=== PATIENT | male | born 1940 | race Caucasian/White ===

== ENCOUNTER 2018-05-18 20:51 | Observation (INO) ==
[2018-05-18 21:19] LABS: Basophils % 0.4 % (0.1-2.0); Eosinophils # 0.1 K/mm3 (0.0-0.4); Eosinophils % 1.2 % (0.1-12.0); Hematocrit 41.8 % (42.0-52.0); Hemoglobin 13.2 g/dL (14.1-18.0); Lymphocytes # 1.4 K/mm3 (0.7-4.5); Lymphocytes % 15.2 % (10-50); Mean Corpuscular HGB Conc 31.6 g/dL (31.8-35.4); Mean Corpuscular Hemoglobin 31.3 pg (27.0-31.2); Mean Corpuscular Volume 98.9 fl (80-94); Mean Platelet Volume 8.6 fl (7.4-10.4); Monocytes # 0.4 K/mm3 (0.1-1.0); Monocytes % 4.2 % (1.7-9.3); Neutrophils % 79.1 % (37.0-80.0); Platelet Count 146 K/mm3 (142-424); Red Blood Count 4.23 M/mm3 (4.60-6.20); Red Cell Distribution Width 13.5 % (11.5-17.5); White Blood Count 8.9 K/mm3 (4.8-10.8)
[2018-05-18 21:38] LABS: Albumin Level 3.2 gm/dL (3.4-5.0); Albumin/Globulin Ratio 0.9 (1.1-1.8); Anion Gap 13.7 mEq/L (5-15); Bilirubin,Total 0.5 mg/dL (0.2-1.0); Calcium 8.1 mg/dL (8.5-10.1); Globulin 3.4 gm/dl (1.3-3.2); Potassium 3.7 mmoL/L (3.5-5.1); Total Protein,Serum 6.6 gm/dL (6.4-8.2)
--- NOTE | 2018-05-18 22:21 | Emergency Department Note ---
ED Disposition Clinical Impression: Concussion without loss of consciousness Qualifiers: Encounter type: initial encounter Qualified Code(s): S06.0X0A - Concussion without loss of consciousness, initial encounter Shoulder fracture, right Qualifiers: Encounter type: initial encounter Fracture type: closed Qualified Code(s): S42.91XA - Fracture of right shoulder girdle, part unspecified, initial encounter for closed fracture Fall Qualifiers: Encounter type: initial encounter Qualified Code(s): W19.XXXA - Unspecified fall, initial encounter Disposition: Admitted as Observation Condition on Discharge: Good Referrals: Efren Marte [Primary Care Provider] - - Critical Care Critical Care Time: No Attestation: On 05/18/18, the high probability of a clinically significant, sudden or life threatening deterioration of the following system(s) required my full and direct attention, intervention and personal management. The time I documented below is in addition to time spent performing reported procedures but includes the following listed in this critical care notation. Medical Decision Making - Medical Records Medical records reviewed: Yes: I reviewed the patient's medical records. - Jasen Inquiry Pt receiving controlled substance: No Vital Signs: 05/18/18 20:52 Temperature 98.0 F Temperature Source Oral Pulse Rate [Left Radial] 74 Respiratory Rate 13 Blood Pressure [Left Arm] 140/90 Blood Pressure Mean [Left Arm] 106 Blood Pressure Source [Left Arm] Automatic Cuff Blood Pressure Position [Left Arm] Sitting 02 Sat by Pulse Oximetry 97 Oxygen Delivery Method Room Air - Lab Data Lab results reviewed: Yes: I reviewed the patient's lab results. Lab Results 05/18/18 21:05: WBC 8.9, RBC 4.23 L, Hgb 13.2 L, Hct 41.8 L, MCV 98.9 H, MCH 31.3 H, MCHC 31.6 L, RDW 13.5, Plt Count 146, MPV 8.6, Neut % (Auto) 79.1, Lymph % (Auto) 15.2, [place] % (Auto) 4.2, Eos % (Auto) 1.2, Baso % (Auto) 0.4, Neut # (Auto) 7.0, Lymph # (Auto) 1.4, [place] # (Auto) 0.4, Eos # (Auto) 0.1, Baso # (Auto) 0.0 05/18/18 21:05: Sodium 143, Potassium 3.7, Chloride 107, Carbon Dioxide 26, Anion Gap 13.7, BUN 19 H, Creatinine 1.07, Estimated Creat Clear 62, Estimated GFR 66, Est GFR ( Amer) 80, Glucose 209 H, Calcium 8.1 L, Total Bilirubin 0.5, AST 13 L, ALT 19, Alkaline Phosphatase 163 H, Total Protein 6.6, Albumin 3.2 L, Globulin 3.4 H, Albumin/Globulin Ratio 0.9 L Result diagrams: 05/18/18 21:05 05/18/18 21:05 Orders (Tests/Meds): ED MEDICATIONS Discontinued Medications Generic Name Dose Route Start Last Admin Trade Name Freq PRN Reason Stop Dose Admin Sodium Chloride 1,000 mls @ 999 mls/hr 05/18/18 21:15 05/18/18 21:12 Sod Chlor 0.9% 1000ml Bag IV 05/18/18 22:15 999 mls/hr .Q1H1M HOLLIS Administration Ketorolac Tromethamine 30 mg 05/18/18 21:08 05/18/18 21:12 Toradol 30mg/Ml Vial IV 05/18/18 21:09 30 mg ONCE ONE Administration Ondansetron HCl 4 mg 05/18/18 21:08 05/18/18 21:12 Zofran 4mg/2ml Vial IV 05/18/18 21:09 4 mg ONCE ONE Administration ORDERS Category Date Time Status CT cervical spine wo con Stat Cat Scan 05/18/18 21:[address] head/brain wo con Stat Cat Scan 05/18/18 21:07 Taken Shoulder XR right miminum 2 views [XR shoulder RT min Exams 05/18/18 21:09 Taken 2V] Stat - Radiology Data #1 Image(s): Chest, Shoulder, Pelvis Image Reviewed: Yes I reviewed the patient's radiology image Preliminary Findings: Abnormal (fx shoulder ) - CT Data CT Scan: Head, C-Spine Time Received: 22:[address] Reviewed: Yes: I have viewed the radiologist's interpretation Preliminary Findings: Abnormal (old changes ) - Physician Consults Physician Consulted: dong Reason -: Admission Additional Consult: kiet Reason -: Pt condition Fall HPI - General Chief Complaint: Fall Stated Complaint: AO [id number] @1900 R shoulder injury Time Seen by Provider: 05/18/18 21:15 Mode of Arrival: Wheelchair Source of Information: Patient, Relative, Medical Record Limitations: No Limitations Description of Symptoms (Recalled from ER Triage Doc. by RN): Pt reports he was at a freinds house when he lost his footing and fell he hit his head but no loc. Pt c/o right shoulder pain. Knot noted on the left side of his forehead. - History of Present Illness HPI Narrative: wm who had trip injury and hit head and has neck pain uncertain as to loc but no def extended time and has rt shoulder pain with dec rom MD complaint: fall Onset (ago): hour(s) Fall from: standing Fall witnessed: no Place fall occurred: home Loss of consciousness: unsure Prolonged down time: no Context: tripped/slipped Location of injury: head, neck Location of injury - extremities: Right: shoulder Severity: moderate Associated symptoms (after fall): headache, lightheaded - Related Data Home Medications Medication Instructions Recorded Confirmed Atorvastatin Calcium [Atorvastatin 80 mg PO DAILY 03/03/18 05/18/18 80mg Tab] Clopidogrel Bisulfate [Plavix 75mg 75 mg PO DAILY 03/03/18 05/18/18 Tab] Ferrous Sulfate 325 mg PO BID 03/03/18 05/18/18 Finasteride [Proscar 5mg Tablet] 5 mg PO DAILY 03/03/18 05/18/18 Lisinopril [Lisinopril 2.5mg Tab] 2.5 mg PO DAILY 03/03/18 05/18/18 Metoprolol Tartrate [Lopressor 6.25 mg PO BID 03/03/18 05/18/18 25mg tablet] Nitroglycerin 0.4 mg SL NEEDED PRN 03/03/18 05/18/18 Pantoprazole Sodium [Protonix 40mg 40 mg PO BID 03/03/18 05/18/18 tablet] Tamsulosin HCl [Flomax 0.4mg 0.4 mg PO HS 03/03/18 05/18/18 capsule] Allergies Allergy/AdvReac Type Severity Reaction Status Date / Time Sulfa (Sulfonamide Allergy Unknown Verified 05/18/18 21:10 Antibiotics) [SULFA (SULFONAMIDE ANTIBIOTICS)] [facility] History I have reviewed the patient's past medical history: Yes Medical History: Reports:: Coronary Artery Disease, Hyperlipidemia, Hypertension, Kidney Stones Denies:: Cancer, Diabetes Mellitus Type 1, Diabetes Mellitus Type 2, Internal Pacemaker, MRSA Other Surgeries: Yes: Coronary Stent, Other (kidney stones). No: Pacemaker Amputation: No - Social History Smoking Status: Current every day smoker Tobacco Type: cigarettes Alcohol Intake: never - Psychiatric History Expresses thoughts of harming self/others: None Suicide Plan Description: No Plan ROS Obtained: Yes All systems reviewed & no additional complaints - Constitutional Constitutional: Denies fever(s) - Eyes Eyes: Denies change in vision - ENT Ears, Nose, Mouth, and Throat: Denies sore throat - Cardiovascular Cardiovascular: Denies chest pain, Denies palpitations - Respiratory Respiratory: No cough, No dyspnea - Gastrointestinal Gastrointestingal: Denies: abdominal pain - Genitourinary Male Genitourinary: Denies hematuria - Musculoskeletal Musculoskeletal: Reports as per HPI, Reports joint pain, Reports joint swelling, Reports neck pain - Integumentary/Breasts Skin/Breast: Denies rash - Neurologic Neurologic: Reports confusion, Denies focal weakness, Denies seizure-like activity Physical Exam - General General appearance: alert - Head Head exam: normocephalic - Eye Eye exam: Present: PERRL, EOMI - ENT ENT exam: Present: mucous membranes dry - Neck Neck exam: Present: trachea midline - Respiratory Respiratory exam: Present: other (dec bs bilat ). Absent: respiratory distress - Cardiovascular Cardiovascular exam: Present: regular rate, systolic murmur, +S4 - Abdominal Exam Abdominal exam: Present: soft - Expanded Upper Extremity Exam Right Shoulder exam: Present: tenderness, swelling, deformity. Absent: full ROM - Back Exam Back exam: Present: other (pelvis stable ) - Neurological Exam Neurological exam: Present: alert, oriented X3, CN II-XII intact, other (gcs=15). Absent: motor sensory deficit - Psychiatric Psychiatric exam: Present: normal affect - Skin Skin exam: Absent: rash
[2018-05-19 05:54] LABS: Basophils % 0.2 % (0.1-2.0); Eosinophils % 0.1 % (0.1-12.0); Hematocrit 37.9 % (42.0-52.0); Lymphocytes # 1.3 K/mm3 (0.7-4.5); Lymphocytes % 15.7 % (10-50); Mean Corpuscular HGB Conc 31.7 g/dL (31.8-35.4); Mean Corpuscular Volume 97.8 fl (80-94); Mean Platelet Volume 8.8 fl (7.4-10.4); Monocytes # 0.4 K/mm3 (0.1-1.0); Monocytes % 5.1 % (1.7-9.3); Neutrophils # 6.7 K/mm3 (1.8-7.8); Platelet Count 117 K/mm3 (142-424); Red Blood Count 3.88 M/mm3 (4.60-6.20); Red Cell Distribution Width 13.7 % (11.5-17.5); White Blood Count 8.5 K/mm3 (4.8-10.8)
[2018-05-19 06:12] LABS: Anion Gap 13.4 mEq/L (5-15); Blood Urea Nitrogen 18 mg/dL (7-18); Calcium 8.2 mg/dL (8.5-10.1); Carbon Dioxide 25 mmol/L (21.0-32.0); Chloride 108 mmol/L (98-107); Glucose 140 mg/dL (74-106); Potassium 3.4 mmoL/L (3.5-5.1); Sodium 143 mmol/L (136-145)
--- NOTE | 2018-05-19 06:59 | History & Physical Report ---
*Admission Date: 05/18/18 *Chief complaint: Fall at home *History of present illness: 78-year-old male who lives at home alone fell injuring his right arm. Patient gives history this morning. Speech is difficult to understand these not completely awake. He apparently tripped, possibly over a pipe, at home striking his head and neck as well as injuring his right arm. Patient minimizes any head trauma. He did not lose consciousness. He did have pain in the right arm. He presented to the emergency department with family for evaluation. In the ER patient still seemed a little confused. He was also diagnosed with a right humerus fracture. Patient was admitted for observation and orthopedic consul tation. This morning the patient is oriented to day, month, year and person. He is not oriented to place. He denies significant pain [facility] History I have reviewed the patient's past medical history: Yes Medical History: Reports:: Aneurysm, Coronary Artery Disease, Hyperlipidemia, Hypertension, Kidney Stones Denies:: Cancer, Diabetes Mellitus Type 1, Diabetes Mellitus Type 2, Internal Pacemaker, MRSA Other Surgeries: Yes: Coronary Stent, Other (kidney stones). No: Pacemaker Amputation: No - *Social History Educational Level: Attended High School Smoking Status: Current every day smoker Tobacco Type: cigarettes # Packs/Day (cigarettes): 2 #Yrs smoked (if former smoker): 70 Alcohol Intake: former Alcohol Intake Frequency:: other Occupational Status: retired Household Members: none - Psychiatric History Expresses thoughts of harming self/others: None Suicide Plan Description: No Plan Review of Systems - Review of Systems Review of systems:: pertinent systems reviewed and negative unless documented below - Constitutional Denies body ache(s), Denies chills - Eyes Denies blurry vision - *Cardiovascular Denies chest pain, Denies chest pain at rest - *Respiratory Denies change in phlegm color, Denies chest congestion, Denies cough - *Gastrointestinal Denies belching, Denies bloating - *Musculoskeletal Reports limited joint movement - *Neurologic Reports confusion, Denies localized weakness, Denies seizure-like activity Meds Home Medications Medication Instructions Recorded Confirmed Type Atorvastatin Calcium [Atorvastatin 80 mg PO DAILY 03/03/18 05/18/18 History 80mg Tab] Clopidogrel Bisulfate [Plavix 75mg 75 mg PO DAILY 03/03/18 05/18/18 History Tab] Ferrous Sulfate 325 mg PO BID 03/03/18 05/18/18 History Finasteride [Proscar 5mg Tablet] 5 mg PO DAILY 03/03/18 05/18/18 History Lisinopril [Lisinopril 2.5mg Tab] 2.5 mg PO DAILY 03/03/18 05/18/18 History Metoprolol Tartrate [Lopressor 6.25 mg PO BID 03/03/18 05/18/18 History 25mg tablet] Nitroglycerin 0.4 mg SL NEEDED PRN 03/03/18 05/18/18 History Pantoprazole Sodium [Protonix 40mg 40 mg PO BID 03/03/18 05/18/18 History tablet] Tamsulosin HCl [Flomax 0.4mg 0.4 mg PO HS 03/03/18 05/18/18 History capsule] Amoxicillin [Amoxicillin 500mg 500 mg PO BID 05/18/18 05/18/18 History Cap] predniSONE [Deltasone 20mg 20 mg PO BID 05/18/18 05/18/18 History tablet] Allergies Allergy/AdvReac Type Severity Reaction Status Date / Time Sulfa (Sulfonamide Allergy Unknown Verified 05/18/18 21:10 Antibiotics) [SULFA (SULFONAMIDE ANTIBIOTICS)] Exam Vital signs and Labs for Last 24 Hours: Temp Pulse Resp BP Pulse Ox 98.3 F 86 20 127/76 93 L 05/19/18 04:46 05/19/18 04:46 05/19/18 04:46 05/19/18 04:46 05/19/18 04:46 Laboratory Results - last 24 hr 05/18/18 21:05: WBC 8.9, RBC 4.23 L, Hgb 13.2 L, Hct 41.8 L, MCV 98.9 H, MCH 31.3 H, MCHC 31.6 L, RDW 13.5, Plt Count 146, MPV 8.6, Neut % (Auto) 79.1, Lymph % (Auto) 15.2, [place] % (Auto) 4.2, Eos % (Auto) 1.2, Baso % (Auto) 0.4, Neut # (Auto) 7.0, Lymph # (Auto) 1.4, [place] # (Auto) 0.4, Eos # (Auto) 0.1, Baso # (Auto) 0.0 05/18/18 21:05: Sodium 143, Potassium 3.7, Chloride 107, Carbon Dioxide 26, Anion Gap 13.7, BUN 19 H, Creatinine 1.07, Estimated Creat Clear 62, Estimated GFR 66, Est GFR ( Amer) 80, Glucose 209 H, Calcium 8.1 L, Total Bilirubin 0.5, AST 13 L, ALT 19, Alkaline Phosphatase 163 H, Total Protein 6.6, Albumin 3.2 L, Globulin 3.4 H, Albumin/Globulin Ratio 0.9 L 05/19/18 01:46: Troponin I < 0.02 05/19/18 05:19: Sodium 143, Potassium 3.4 L, Chloride 108 H, Carbon Dioxide 25, Anion Gap 13.4, BUN 18, Creatinine 0.93, Estimated Creat Clear 66, Estimated GFR 78, Est GFR ( Amer) 95, Glucose 140 H D, Calcium 8.2 L, Troponin I < 0.02 05/19/18 05:19: WBC 8.5, RBC 3.88 L, Hgb 12.0 L, Hct 37.9 L, MCV 97.8 H, MCH 31.0, MCHC 31.7 L, RDW 13.7, Plt Count 117 L, MPV 8.8, Neut % (Auto) 79.0, Lymph % (Auto) 15.7, [place]cd[place] % (Auto) 5.1, Eos % (Auto) 0.1, Baso % (Auto) 0.2, Neut # (Auto) 6.7, Lymph # (Auto) 1.3, [place]cd[place] # (Auto) 0.4, Eos # (Auto) 0.0, Baso # (Auto) 0.0 I & O for Last 24 hours: Intake & Output 05/16/18 05/17/18 05/18/18 05/19/18 11:59 11:59 11:59 11:59 Intake Total 283 / 283 Balance 283 / 283 Weight 175 lb 4 oz Narrative: Patient is lying comfortably in bed in no distress. When initially awakened his speech was difficult to understand due to speaking with low volume. The more he awoke the clear he became. He is oriented to person and time. He is not oriented to place. Extraocular movements are intact. Pupils are reactive. Oropharynx is moist. Neck is without lymphadenopathy lungs are clear. Heart has a regular rate and rhythm. The right arm is in a sling. Abdomen is soft. There is no edema of the lower extremities. Assessment and Plan (1) Concussion without loss of consciousness Current visit: Yes Status: Acute Qualifiers: Encounter type: initial encounter Qualified Code(s): S06.0X0A - Concussion without loss of consciousness, initial encounter Category: Medical Code(s): S06.0X0A - Concussion without loss of consciousness, initial encounter (2) Fall Current visit: Yes Status: Acute Qualifiers: Encounter type: initial encounter Qualified Code(s): W19.XXXA - Unspecified fall, initial encounter Category: Medical Code(s): W19.XXXA - Unspecified fall, initial encounter (3) Shoulder fracture, right Current visit: Yes Status: Acute Qualifiers: Encounter type: initial encounter Fracture type: closed Qualified Code(s): S42.91XA - Fracture of right shoulder girdle, part unspecified, initial encounter for closed fracture Category: Medical Code(s): S42.91XA - Fracture of right shoulder girdle, part unspecified, initial encounter for closed fracture (4) [facility] (current) use of antithrombotics/antiplatelets Current visit: No Status: Acute Category: Medical Code(s): 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 Patient has had a mild concussion. He will simply need to rest to recover from this. There was no loss of consciousness. 2. Orthopedics has been consulted for his comminuted right humeral head and neck fracture. 3. As the patient lives at home alone and will be disabled from his fracture I have suggested to the patient assisted facility placement. Care management consult has been placed to investigate this
--- NOTE | 2018-05-19 08:23 | Pharmacy Consult Notes ---
[facility] Pharmacy VTE Monitoring - Patient Demographics Admission date: 05/18/18 Report Date: 05/19/18 Time: 08:23 Allergies/Adverse Reactions: Patient Allergies Sulfa (Sulfonamide Antibiotics) [SULFA (SULFONAMIDE ANTIBIOTICS)] Allergy (Unknown, Verified 05/18/18 21:10) Height: 1.88 m Weight: 79.492 kg Patient Problems: Current Active Problems Concussion without loss of consciousness (Acute) Shoulder fracture, right (Acute) Fall (Acute) - VTE Risk Labs: VTE Related Lab Results Hgb 12.0 g/dL (14.1-18.0) L 05/19/18 05:19 Hct 37.9 % (42.0-52.0) L 05/19/18 05:19 Plt Count 117 K/mm3 (142-424) L 05/19/18 05:19 BUN 18 mg/dL (7-18) 05/19/18 05:19 Creatinine 0.93 mg/dL (0.70-1.30) 05/19/18 05:19 Estimated Creat Clear 66 mL/min (50-200) 05/19/18 05:19 Was VTE Risk Assessment Performed: Yes VTE Score: 10 VTE Risk Level: Moderate Risk - Prophylaxis VTE Prophylaxis Ordered?: Yes Types of VTE Prophylaxis: TEDS Knee High Location of Applied Device: Bilateral Lower Extremeties - VTE Diagnosis Confirmed Treatment or plan recommended: Continue Current Treatment
--- NOTE | 2018-05-19 11:53 | Consult Report ---
*Admission Date: 05/18/18 *Chief complaint: R shoulder pain *History of present illness: 78-year-old gentleman with a chief complaint of right shoulder pain status post mechanical fall yesterday. He tripped over what may have been an exposed pipe in the ground and fell, hitting both his head and his right shoulder. He has been diagnosed with a concussion as well as a fracture of the right proximal humerus. Currently the patient is lying in bed in only his underwear with his sling at the foot of the bed. He is confused on initial questioning, but a few minutes later was completely oriented. He has had intermittent lucidity/confusion since admission. I spoke with his son Eddie via telephone, who reports that at baseline the patient is very active and drives himself 30 miles daily to visit a cousin. He lives alone at home and is able to perform all ADLs including feeding, bathing and dressing. His daughter does help him with medication management. He has had some occasional falls in the past, which his son attributes to inattention and not a balance issue. He does not fall frequently and ambulates with a cane. He has a history of COPD and is a smoker. He also has coronary artery disease with stent placement and is on Plavix therapy. His primary care is Dr. Marte. Review of Systems - Review of Systems Review of systems:: pertinent systems reviewed and negative unless documented below - *Musculoskeletal Reports joint pain, Reports joint swelling Comments: R shoulder pain/bruising - *Neurologic Reports confusion, Denies localized weakness, Denies seizure-like activity [facility] History I have reviewed the patient's past medical history: Yes (also verified via telephone with patient's son) Medical History: Reports:: Aneurysm, Chronic Obstructive Pulmonary Disease (COPD), Coronary Artery Disease, Hyperlipidemia, Hypertension, Kidney Stones Denies:: Cancer, Diabetes Mellitus Type 1, Diabetes Mellitus Type 2, Internal Pacemaker, MRSA Other Surgeries: Yes: Coronary Stent, Other (kidney stones). 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 Meds Home Medications Medication Instructions Recorded Confirmed Type Atorvastatin Calcium [Atorvastatin 80 mg PO DAILY 03/03/18 05/18/18 History 80mg Tab] Clopidogrel Bisulfate [Plavix 75mg 75 mg PO DAILY 03/03/18 05/18/18 History Tab] Ferrous Sulfate 325 mg PO BID 03/03/18 05/18/18 History Finasteride [Proscar 5mg Tablet] 5 mg PO DAILY 03/03/18 05/18/18 History Lisinopril [Lisinopril 2.5mg Tab] 2.5 mg PO DAILY 03/03/18 05/18/18 History Metoprolol Tartrate [Lopressor 12.5 mg PO BID 03/03/18 05/19/18 History 25mg tablet] Nitroglycerin 0.4 mg SL NEEDED PRN 03/03/18 05/18/18 History Pantoprazole Sodium [Protonix 40mg 40 mg PO BID 03/03/18 05/18/18 History tablet] Tamsulosin HCl [Flomax 0.4mg 0.4 mg PO HS 03/03/18 05/18/18 History capsule] Amoxicillin [Amoxicillin 500mg 500 mg PO BID 05/18/18 05/18/18 History Cap] predniSONE [Deltasone 20mg 20 mg PO BID 05/18/18 05/18/18 History tablet] Allergies Allergy/AdvReac Type Severity Reaction Status Date / Time Sulfa (Sulfonamide Allergy Unknown Verified 05/18/18 21:10 Antibiotics) [SULFA (SULFONAMIDE ANTIBIOTICS)] Exam Vital signs and Labs for Last 24 Hours: Temp Pulse Resp BP Pulse Ox 98.9 F 89 20 154/92 H 91 L 05/19/18 08:00 05/19/18 08:00 05/19/18 08:00 05/19/18 08:00 05/19/18 08:45 Laboratory Results - last 24 hr 05/18/18 21:05: WBC 8.9, RBC 4.23 L, Hgb 13.2 L, Hct 41.8 L, MCV 98.9 H, MCH 31.3 H, MCHC 31.6 L, RDW 13.5, Plt Count 146, MPV 8.6, Neut % (Auto) 79.1, Lymph % (Auto) 15.2, [place] % (Auto) 4.2, Eos % (Auto) 1.2, Baso % (Auto) 0.4, Neut # (Auto) 7.0, Lymph # (Auto) 1.4, [place] # (Auto) 0.4, Eos # (Auto) 0.1, Baso # (Auto) 0.0 05/18/18 21:05: Sodium 143, Potassium 3.7, Chloride 107, Carbon Dioxide 26, Anion Gap 13.7, BUN 19 H, Creatinine 1.07, Estimated Creat Clear 62, Estimated GFR 66, Est GFR ( Amer) 80, Glucose 209 H, Calcium 8.1 L, Total Bilirubin 0.5, AST 13 L, ALT 19, Alkaline Phosphatase 163 H, Total Protein 6.6, Albumin 3.2 L, Globulin 3.4 H, Albumin/Globulin Ratio 0.9 L 05/19/18 01:46: Troponin I < 0.02 05/19/18 05:19: Sodium 143, Potassium 3.4 L, Chloride 108 H, Carbon Dioxide 25, Anion Gap 13.4, BUN 18, Creatinine 0.93, Estimated Creat Clear 66, Estimated GFR 78, Est GFR ( Amer) 95, Glucose 140 H D, Calcium 8.2 L, Troponin I < 0.02 05/19/18 05:19: WBC 8.5, RBC 3.88 L, Hgb 12.0 L, Hct 37.9 L, MCV 97.8 H, MCH 31.0, MCHC 31.7 L, RDW 13.7, Plt Count 117 L, MPV 8.8, Neut % (Auto) 79.0, Lymph % (Auto) 15.7, [place] % (Auto) 5.1, Eos % (Auto) 0.1, Baso % (Auto) 0.2, Neut # (Auto) 6.7, Lymph # (Auto) 1.3, [place] # (Auto) 0.4, Eos # (Auto) 0.0, Baso # (Auto) 0.0 I & O for Last 24 hours: Intake & Output 05/16/18 05/17/18 05/18/18 05/19/18 11:59 11:59 11:59 11:59 Intake Total 283 / 283 Balance 283 / 283 Weight 175 lb 4 oz - Constitutional no acute distress, average body habitus - *Routine HEENT Exam Head: Present: normocephalic Eye: Present: EOMI - *Routine Respiratory Exam Present: CTA bilaterally. Absent: accessory muscle use, respiratory distress - *Routine Cardiovascular Exam Present: RRR - *Routine Extremities Exam Present: pulses intact, normal capillary refill, tenderness, joint swelling Comments: swelling/ecchymosis RUE; ecchymosis anterior arm/axilla - *Routine Skin Exam Present: ecchymosis - *Routine Neurological Exam Present: alert, normal reflexes, moving all extremities, normal tone, vision grossly intact, hearing grossly intact alert and oriented x3, then later patient is confused; sustained concussion and on narcotic pain meds - Additional findings Additional findings: R shoulder w/o gross deformity moderate soft tissue swelling over R shoulder/upper arm ecchymosis anterior R arm/axilla R shoulder tender to touch able to move R elbow, but causes shoulder pain SILT distally in m/r/u distributions RUE motor function intact with testing of AIN/PIN/ulnar nerves distally RUE palpable radial pulse at the wrist, BCR all digits RUE patient's sling lying at foot of bed; he keep removing, does not want to wear in bed placed RUE on pillow, which helped pain Results - Labs Result Diagrams: 05/19/18 05:19 05/19/18 05:19 Labs: Abnormal lab results 05/18/18 05/18/18 05/19/18 Range/Units 21:05 21:05 05:19 RBC 4.23 L (4.60-6.20) M/mm3 Hgb 13.2 L (14.1-18.0) g/dL Hct 41.8 L (42.0-52.0) % MCV 98.9 H (80-94) fl MCH 31.3 H (27.0-31.2) pg MCHC 31.6 L (31.8-35.4) g/dL Plt Count (142-424) K/mm3 Potassium 3.4 L (3.5-5.1) mmoL/L Chloride 108 H (98-107) mmol/L BUN 19 H (7-18) mg/dL Glucose 209 H 140 H D (74-106) mg/dL Calcium 8.1 L 8.2 L (8.5-10.1) mg/dL AST 13 L (15-37) U/L Alkaline Phosphatase 163 H (46-116) U/L Albumin 3.2 L (3.4-5.0) gm/dL Globulin 3.4 H (1.3-3.2) gm/dl Albumin/Globulin Ratio 0.9 L (1.1-1.8) 05/19/18 Range/Units 05:19 RBC 3.88 L (4.60-6.20) M/mm3 Hgb 12.0 L (14.1-18.0) g/dL Hct 37.9 L (42.0-52.0) % MCV 97.8 H (80-94) fl MCH (27.0-31.2) pg MCHC 31.7 L (31.8-35.4) g/dL Plt Count 117 L (142-424) K/mm3 Potassium (3.5-5.1) mmoL/L Chloride (98-107) mmol/L BUN (7-18) mg/dL Glucose (74-106) mg/dL Calcium (8.5-10.1) mg/dL AST (15-37) U/L Alkaline Phosphatase (46-116) U/L Albumin (3.4-5.0) gm/dL Globulin (1.3-3.2) gm/dl Albumin/Globulin Ratio (1.1-1.8) H & H 05/18/18 05/19/18 Range/Units 21:05 05:19 Hgb 13.2 L 12.0 L (14.1-18.0) g/dL Hct 41.8 L 37.9 L (42.0-52.0) % All other labs normal. - Diagnostic results Shoulder x-ray: report reviewed, image reviewed, other (comminuted fracture of R proximal humerus, appears to be 4-part fx) Assessment and Plan (1) Closed fracture of proximal end of right humerus Start date: 05/18/18 Current visit: Yes Status: Acute Qualifiers: Encounter type: initial encounter Fracture alignment: nondisplaced Category: Medical Code(s): S42.201A - Unspecified fracture of upper end of right humerus, initial encounter for closed fracture - Assessment and plan all Dx Assessment and Plan for all problems:: 78-year-old gentleman with a right proximal humerus fracture sustained during mechanical fall yesterday which also resulted in a concussion. This is likely a 4-part fracture and given his age, medical history, and bone quality, ORIF would likely fail. If any surgical treatment were pursued, I would recommend a reverse shoulder arthroplasty. However, many people do well without surgery for these fractures. I would like to obtain a CT scan of the shoulder to better evaluate the fracture pattern; then I can give he and his family more a educated discussion about treatment options. I did speak with his son Eddie via telephone and discussed the pluses and minuses of both surgical and non-surgical treatment. Nonsurgical treatment would result in a healed fracture, but will also leave him with a very stiff shoulder that may create some chronic discomfort. Also, as long as he is confused, whether from his post-concussive state or a natural progression of his baseline, surgery may not be saeed; he would be at risk for falls and dislocation/fracture of the RSA. Surgery would be a rather large procedure and with his medical comorbidities and age it may not be in his best interest. I will order the CT scan today, and see him back as an outpatient early next week. If he is able to be transferred to a intermediate this weekend, I am okay with the transfer as long as he is has a sling on the right upper extremity. I discussed with the patient that while he is in bed, he may remove the sling and elevate the arm on pillows, but when he is sitting or ambulating he must have the sling on. He must remain nonweightbearing on the right upper extremity, ice may be applied to the shoulder as needed. I will continue to follow while he is in house.
--- NOTE | 2018-05-20 11:27 | Progress Note ---
Internal Medicine - PN: Subj *Date: 05/20/18 *Time: 08:30 Interval history: No acute events overnight. Pain well controlled patient sitting in bedside chair watching news this morning tolerating breakfast. CT right upper extremity obtained showing comminuted fracture with mild increase in joint space. Patient with no new complaints. Denies chest pain, shortness of breath, palpitations, nausea vomiting or diarrhea. Exam Vital signs and Labs for Last 24 Hours: Temp Pulse Resp BP Pulse Ox 99.4 F 89 18 140/71 91 L 05/20/18 08:00 05/20/18 08:00 05/20/18 08:00 05/20/18 08:00 05/20/18 08:00 I & O for Last 24 hours: Intake & Output 05/17/18 05/18/18 05/19/18 05/20/18 23:59 23:59 23:59 23:59 Intake Total 1279 / 1279 883 / 883 Output Total 200 / 200 Balance 1079 / 1079 883 / 883 Weight 79.492 kg 79.492 kg 77.167 kg Narrative: Patient sitting in bedside chair in no acute distress on room air. Heart regular with normal S1 and 2, no murmur Right upper extremity in sling, edema and ecchymosis most prominent on posterior aspect of right upper extremity, pain with rotation of shoulder Abdomen soft, nontender Lungs clear, no rhonchi or rales Alert and oriented x2, no focal deficits Assessment and Plan (1) Closed fracture of proximal end of right humerus Start date: 05/18/18 Current visit: Yes Status: Acute Qualifiers: Encounter type: initial encounter Fracture alignment: nondisplaced Category: Medical Code(s): S42.201A - Unspecified fracture of upper end of right humerus, initial encounter for closed fracture - Assessment and plan all Dx Assessment and Plan for all problems:: Orthopedics consulted, appreciate recommendations. Current discussion with family on operative versus nonoperative management. CT obtained. Appreciate further recommendations from orthopedics. Planning for discharge to SNF on Tuesday as long as patient remains stable
--- NOTE | 2018-05-20 12:46 | Progress Note ---
Subjective Date: 05/20/18 Time: 11:30 Principal diagnosis: R proximal humerus fracture Interval history: The patient was out of bed when I entered the room, returning to his chair from the bathroom and both he and the room were covered in blood. He likely forgot about his IV when he went to the toilet and it pulled apart, or he tried to pull it out. The IV flushes easily and still appears to be intact. He is more alert than when I saw him yesterday, and although he reports R shoulder pain, he appears comfortable. Reported to be taking good PO and urinating frequently. PN: Obj Ex Vital signs: Temp Pulse Resp BP Pulse Ox 99.4 F 89 18 140/71 91 L 05/20/18 08:00 05/20/18 08:00 05/20/18 08:00 05/20/18 08:00 05/20/18 08:00 - Constitutional no acute distress, average body habitus, cooperative - Routine HEENT Exam Head: Present: normocephalic, atraumatic Eye: Present: EOMI ENT: Present: mucous membranes moist - Routine Neck Exam Present: supple - Routine Chest/Breast/Axilla Exam Chest wall: Absent: tenderness - Routine Respiratory Exam Present: CTA bilaterally. Absent: accessory muscle use, respiratory distress, wheezes - Routine Cardiovascular Exam Present: RRR - Routine Abdominal Exam Present: soft. Absent: tenderness - Routine Extremities Exam Present: pulses intact, normal capillary refill. Absent: cyanosis, full ROM, extremity cold to touch Comments: RUE in sling, patient moving arm spontaneously from elbow distally, reports pain in shoulder ecchymosis anterior R arm/axilla R shoulder tender to touch, moderate soft tissue swelling RUE NVI with SILT distally in m/r/u distributions, AIN/PIN/ulnar nerves motor intact palpable radial pulse at the R wrist, BCR all digits - Routine Skin Exam Present: intact, dry, ecchymosis. Absent: cyanosis, erythema - Routine Neurological Exam Present: alert, moving all extremities, normal tone, vision grossly intact, hearing grossly intact. Absent: sensory deficit, motor deficit Progress Note: A&P (1) Closed fracture of proximal end of right humerus Status: Acute Current Visit: Yes Assessment and Plan for All Diagnoses:: 78yo male with R proximal humerus fx -- CT scan helped provide more detail on fracture morphology and joint status; fracture is comminuted and impacted, with minimal displacement of greater tuberosity fragment. However, overall alignment of limb is within acceptable limits and more importantly, the joint line is intact; the humeral head fragment articulating with the glenoid is intact. For this reason, I believe the patient may do well non-operatively. -- I am concerned that a large operation such as a RSA would not be successful, especially if the patient is intermittently confused and prone to falling, taking off his sling, or other actions that may cause dislocation of the implant. I recommend maintaining NWB RUE in a sling, and in another 2-3 weeks we will likely initiate PT for gentle ROM. Should he develop chronic pain or di fficulty with fracture healing, RSA is an option in the future. -- dispo: to [facility] likely Tuesday, will continue to see while in-house, and will arrange outpatient follow-up after discharge
[2018-05-21 06:38] LABS: Basophils % 0.2 % (0.1-2.0); Eosinophils % 0.1 % (0.1-12.0); Hematocrit 35.1 % (42.0-52.0); Hemoglobin 11.6 g/dL (14.1-18.0); Lymphocytes # 1.2 K/mm3 (0.7-4.5); Lymphocytes % 14.1 % (10-50); Mean Corpuscular HGB Conc 33.1 g/dL (31.8-35.4); Mean Corpuscular Hemoglobin 31.5 pg (27.0-31.2); Mean Platelet Volume 8.6 fl (7.4-10.4); Monocytes # 0.4 K/mm3 (0.1-1.0); Monocytes % 5.3 % (1.7-9.3); Neutrophils # 6.5 K/mm3 (1.8-7.8); Neutrophils % 80.3 % (37.0-80.0); Platelet Count 124 K/mm3 (142-424); Red Blood Count 3.69 M/mm3 (4.60-6.20); Red Cell Distribution Width 13.5 % (11.5-17.5); White Blood Count 8.1 K/mm3 (4.8-10.8)
[2018-05-21 06:47] LABS: Anion Gap 15.6 mEq/L (5-15); Calcium 8.2 mg/dL (8.5-10.1); Potassium 3.6 mmoL/L (3.5-5.1)
--- NOTE | 2018-05-21 10:22 | Progress Note ---
Internal Medicine - PN: Subj *Date: 05/21/18 *Time: 08:00 Interval history: No acute events overnight. Patient remains pleasantly confused. Ambulating independently. Pain well controlled with opiate management. Blood pressure remains higher than goal. Afebrile, no diarrhea, nausea, vomiting, shortness of breath, chest pain. Exam Vital signs and Labs for Last 24 Hours: Temp Pulse Resp BP Pulse Ox 98.5 F 93 H 20 156/68 H 94 L 05/21/18 08:00 05/21/18 08:00 05/21/18 08:00 05/21/18 08:00 05/21/18 08:00 Laboratory Results - last 24 hr 05/21/18 05:45: WBC 8.1, RBC 3.69 L, Hgb 11.6 L, Hct 35.1 L, MCV 95.0 H, MCH 31.5 H, MCHC 33.1, RDW 13.5, Plt Count 124 L, MPV 8.6, Neut % (Auto) 80.3 H, Lymph % (Auto) 14.1, [place] % (Auto) 5.3, Eos % (Auto) 0.1, Baso % (Auto) 0.2, Neut # (Auto) 6.5, Lymph # (Auto) 1.2, [place] # (Auto) 0.4, Eos # (Auto) 0.0, Baso # (Auto) 0.0 05/21/18 05:45: Sodium 141, Potassium 3.6, Chloride 104, Carbon Dioxide 25, Anion Gap 15.6 H, BUN 17, Creatinine 0.72 D, Estimated Creat Clear 64, Estimated GFR 105, Est GFR ( Amer) 127 D, Glucose 103, Calcium 8.2 L I & O for Last 24 hours: Intake & Output 05/18/18 05/19/18 05/20/18 05/21/18 23:59 23:59 23:59 23:59 Intake Total 1279 / 1279 1733 / 1733 480 / 480 Output Total 200 / 200 400 / 400 350 / 350 Balance 1079 / 1079 1333 / 1333 130 / 130 Weight 79.492 kg 79.492 kg 77.167 kg 76.402 kg Narrative: Laying in bed this morning, no acute distress on room air. Heart regular with normal S1 and 2, no murmur Right upper extremity in sling, edema and ecchymosis most prominent on posterior aspect of right upper extremity, pain with rotation of shoulder Abdomen soft, nontender Lungs clear, no rhonchi or rales Alert and oriented x2, no focal deficits Assessment and Plan (1) Closed fracture of proximal end of right humerus Start date: 05/18/18 Current visit: Yes Status: Acute Qualifiers: Encounter type: initial encounter Fracture alignment: nondisplaced Category: Medical Code(s): S42.201A - Unspecified fracture of upper end of right humerus, initial encounter for closed fracture (2) Hypertension Current visit: Yes Status: Chronic Qualifiers: Hypertension type: essential hypertension Qualified Code(s): I10 - Essential (primary) hypertension Category: Medical Code(s): I10 - Essential (primary) hypertension Continue metoprolol -Lisinopril to 5 mg daily, goal less than 150/90 (3) BPH (benign prostatic hyperplasia) Current visit: Yes Status: Chronic Qualifiers: Lower urinary tract symptom presence: unspecified whether lower urinary tract symptoms present Qualified Code(s): N40.0 - Benign prostatic hyperplasia without lower urinary tract symptoms Category: Medical Code(s): N40.0 - Benign prostatic hyperplasia without lower urinary tract symptoms Continue home regimen of tamsulosin and finasteride, voiding independently - Assessment and plan all Dx Assessment and Plan for all problems:: Clicks recommended nonoperative management at this time. Plan for discharge to [facility] facility tomorrow pending acceptance.
--- NOTE | 2018-05-21 15:41 | Progress Note ---
Subjective Date: 05/21/18 Time: 11:20 Principal diagnosis: R proximal humerus fracture Interval history: No acute events reported overnight, patient pleasantly confused today. Unable to clearly answer questions but appears comfortable. PN: Obj Ex Vital signs: Temp Pulse Resp BP Pulse Ox 98.5 F 93 H 20 156/68 H 94 L 05/21/18 08:00 05/21/18 08:00 05/21/18 08:00 05/21/18 08:00 05/21/18 08:00 Narrative: RUE in sling persistent ecchymosis anterior R arm/axilla, not worsening no erythema, no open wounds R shoulder AIN/PIN/ulnar nerves motor intact distally in RUE SILT distally in m/r/u distributions RUE palpable radial pulse at the wrist RUE, BCR all digits Progress Note: A&P (1) Closed fracture of proximal end of right humerus Status: Acute Current Visit: Yes Assessment and Plan for All Diagnoses:: 78 year-old male with right proximal humerus fracture, comminuted/impacted -- continue NWB RUE in sling -- otherwise may be OOB as tolerated with assist -- dispo planned for SNF, anticipate discharge in next 1-2 days pending bed availability -- if patient discharged, please have him follow-up with me in clinic within 7- 10 days
--- NOTE | 2018-05-22 08:43 | Progress Note ---
Internal Medicine - PN: Subj *Date: 05/22/18 *Time: 08:42 Interval history: Patient pleasant, demented. However has been very cold, ate a good breakfast, slept well through the night. Exam Vital signs and Labs for Last 24 Hours: Temp Pulse Resp BP Pulse Ox 99.0 F 83 20 134/56 L 97 05/22/18 04:00 05/22/18 04:00 05/22/18 04:00 05/22/18 04:00 05/22/18 04:00 I & O for Last 24 hours: Intake & Output 05/19/18 05/20/18 05/21/18 05/22/18 11:59 11:59 11:59 11:59 Intake Total 283 / 283 1879 / 1879 1330 / 1330 1450 / 1450 Output Total 200 / 200 750 / 750 1250 / 1250 Balance 283 / 283 1679 / 1679 580 / 580 200 / 200 Weight 175 lb 4 oz 170 lb 2 oz 168 lb 7 oz 165 lb 3 oz Narrative: Patient is pleasant. Follows commands. Lungs have good air movement, heart rate regular. Abdomen soft and nontender. Right upper extremity in a sling. Good distal pulses in the wrists bilaterally. Able to move hands well. No edema or clubbing. Assessment and Plan (1) Closed fracture of proximal end of right humerus Start date: 05/18/18 Current visit: Yes Status: Acute Qualifiers: Encounter type: initial encounter Fracture alignment: nondisplaced Category: Medical Code(s): S42.201A - Unspecified fracture of upper end of right humerus, initial encounter for closed fracture - Assessment and plan all Dx Assessment and Plan for all problems:: Patient will continue pain management here. Patient will need long-term care for fall issues.
--- NOTE | 2018-05-22 13:15 | Progress Note ---
Subjective Date: 05/22/18 Time: 12:00 Principal diagnosis: R proximal humerus fracture Interval history: The patient is sleeping when I arrive, appears to be resting comfortably in bedside chair; RUE in sling. Reported to have a restless night last night. PN: Obj Ex Vital signs: Temp Pulse Resp BP Pulse Ox 98.2 F 81 20 147/94 H 93 L 05/22/18 08:00 05/22/18 08:00 05/22/18 08:00 05/22/18 08:00 05/22/18 08:00 - Constitutional no acute distress, average body habitus - Routine HEENT Exam Head: Present: normocephalic, atraumatic - Routine Respiratory Exam Present: CTA bilaterally. Absent: accessory muscle use, respiratory distress - Routine Cardiovascular Exam Present: RRR - Routine Extremities Exam Present: pulses intact, tenderness, joint swelling. Absent: cyanosis, full ROM Comments: RUE in sling, exam unchanged patient sleeping, did not wake ecchymosis, swelling stable Progress Note: A&P (1) Closed fracture of proximal end of right humerus Status: Acute Current Visit: Yes Assessment and Plan for All Diagnoses:: 78yo M with R proximal humerus fracture -- continue RUE in sling, NWB -- apply ice to R shoulder PRN for pain/swelling -- patient has tendency to remove sling or sit/lie with it askew; ask that nursing adjust when necessary -- may be OOB with assist as long as NWB RUE -- f/u in clinic after discharge; would like to see at the end of the week
--- NOTE | 2018-05-23 08:23 | Discharge Summary ---
General - General Admission date:: 05/18/18 Discharge date: 05/23/18 HPI HPI: 78-year-old male who lives at home alone fell injuring his right arm. Patient gives history this morning. Speech is difficult to understand these not completely awake. He apparently tripped, possibly over a pipe, at home striking his head and neck as well as injuring his right arm. Patient minimizes any head trauma. He did not lose consciousness. He did have pain in the right arm. He presented to the emergency department with family for evaluation. In the ER patient still seemed a little confused. He was also diagnosed with a right humerus fracture. Patient was admitted for observation and orthopedic consultation. This morning the patient is oriented to day, month, year and person. He is not oriented to place. He denies significant pain Hospital Course Hospital Course: Patient presented to the ER after a fall. Noted to have concussion and humeral fracture. Placed in a sling, orthopedic consulted. Decision made to pursue nonoperative management. Pain controlled, patient remained hemodynamically stable during admission. Due to debility, confusion, patient criteria for but in longterm facility. Preserved obtained. Patient tolerated oral intake, ambulating with assistance, hemodynamically stable, afebrile. Medically stable for discharge to nursing facility. When to follow-up with primary care and orthopedics as scheduled. Objective Vital signs: Temp Pulse Resp BP Pulse Ox 97.6 F 70 20 151/80 H 93 L 05/23/18 04:00 05/23/18 04:00 05/23/18 04:00 05/23/18 04:00 05/23/18 04:00 Narrative: Patient is pleasant. Follows commands. Lying in bed in no acute distress Lungs have good air movement, heart rate regular. Abdomen soft and nontender. Right upper extremity in a sling. Good distal pulses in the wrists bilaterally. Able to move hands well. Ecchymoses present on posterior of right upper extremity No edema or clubbing. Alert and oriented to person DS: Diagnosis - Discharge Diagnosis (1) Closed fracture of proximal end of right humerus Status: Acute Discharge Plan - Patient Discharge Instructions ACTIVITY: Ambulate as tolerated, Up with assistance, Other (NON-WEIGHTBEARING RIGHT ARM) DIET: continue same diet Additional Instructions: non-weightbearing right upper extremity (dx: proximal humerus fracture) apply ice to R shoulder as needed (for symptomatic relief only; if causes patient pain, do not have to use) sling on whenever ambulating; if seated, may place arm on pillow and remove sling to work on elbow/wrist ROM; otherwise have sling on and sleep with it on continue PT/OT at SNF for mobilization/transfers; maintain strict NWB RUE and sling use Patient Instructions: DI for Concussion, DI for Shoulder Fracture, How to Prevent Falls - Follow up Plan Follow up with: Yissel Salguero MD [Staff Physician] - 05/26/18 Julio Connors MD [Staff Physician] - 1 week Disposition: [facility] Home Medications: Home Medications Medication Instructions Recorded Confirmed Type Atorvastatin Calcium [Atorvastatin 80 mg PO DAILY 03/03/18 05/18/18 History 80mg Tab] Clopidogrel Bisulfate [Plavix 75mg 75 mg PO DAILY 03/03/18 05/18/18 History Tab] Ferrous Sulfate 325 mg PO BID 03/03/18 05/18/18 History Finasteride [Proscar 5mg Tablet] 5 mg PO DAILY 03/03/18 05/18/18 History Metoprolol Tartrate [Lopressor 12.5 mg PO BID 03/03/18 05/19/18 History 25mg tablet] Nitroglycerin 0.4 mg SL NEEDED PRN 03/03/18 05/18/18 History Pantoprazole Sodium [Protonix 40mg 40 mg PO BID 03/03/18 05/18/18 History tablet] Tamsulosin HCl [Flomax 0.4mg 0.4 mg PO HS 03/03/18 05/18/18 History capsule] Prescriptions/Medication Reconciliation: New Acetaminophen [Acetaminophen 325mg tab] 650 mg PO Q4HP PRN tablet PRN Reason: As Needed For Fever Or Pain Lisinopril [Zestril 5mg Tablet] 5 mg PO DAILY tablet Continue Tamsulosin HCl [Flomax 0.4mg capsule] 0.4 mg PO HS Pantoprazole Sodium [Protonix 40mg tablet] 40 mg PO BID Finasteride [Proscar 5mg Tablet] 5 mg PO DAILY Metoprolol Tartrate [Lopressor 25mg tablet] 12.5 mg PO BID Ferrous Sulfate 325 mg PO BID Atorvastatin Calcium [Atorvastatin 80mg Tab] 80 mg PO DAILY Nitroglycerin 0.4 mg SL NEEDED PRN PRN Reason: Chest Pain Clopidogrel Bisulfate [Plavix 75mg Tab] 75 mg PO DAILY Discontinued Lisinopril [Lisinopril 2.5mg Tab] 2.5 mg PO DAILY predniSONE [Deltasone 20mg tablet] 20 mg PO BID Amoxicillin [Amoxicillin 500mg Cap] 500 mg PO BID
== END 2018-05-23 14:38 ==
LOC: 2ND 20:51 → ER 20:51 → 2ND 23:27
PROVIDERS: ADMIT Family Medicine; ATTEND Internal Medicine Adolescent Medicine
CPT/HCPCS: 36415; 70450; 71010; 71045; 72125; 72170; 73030; 73200; 80048; 80053; 84484; 85025; 96365; 96375; 97116; 97161; 97530; 99284; G0378; J2405

== ENCOUNTER → 2018-05-26 10:16 | Outpatient (CLI) | payer MEDICARE, SELFPAY ==
--- NOTE | 2018-05-26 10:21 | XR_ITS ---
XR shoulder RT min 2V HISTORY: Follow-up fracture ITS.REASON: ap scapular y views ORDERING PHYSICIAN: Yissel Salguero MD PATIENT AGE: 78 years Comparison: 05/19/2018 FINDINGS: There is a comminuted right humeral head and neck fracture with impaction of fracture fragments of the humeral neck and mild placement of the greater tuberosity fracture of the humeral head. There is some callus formation noted. IMPRESSION: Healing comminuted right humeral head and neck fracture
== END ==
PROVIDERS: PCP Internal Medicine Adolescent Medicine; Visit Provider Orthopaedic Surgery
DX: S42.201A Unspecified fracture of upper end of right humerus, initial encounter for closed fracture (principal)
CPT/HCPCS: 73030

== ENCOUNTER → 2018-06-09 07:57 | Outpatient (CLI) | payer MEDICARE, SELFPAY ==
--- NOTE | 2018-06-09 | XR_ITS ---
XR elbow RT 2V HISTORY: Pain following injury ORDERING PHYSICIAN: Yissel Salguero MD PATIENT AGE: 78 years COMPARISON: None FINDINGS: No obvious fracture or dislocation. There is a small intensified at the proximal ulna dorsally at the olecranon region. IMPRESSION: No acute finding
--- NOTE | 2018-06-09 08:02 | XR_ITS ---
XR shoulder RT min 2V HISTORY: Follow-up fracture ITS.REASON: Rt humeral fx AP And scapular Y ORDERING PHYSICIAN: Yissel Salguero MD PATIENT AGE: 78 years Comparison: 05/26/2018 FINDINGS: Comminuted fracture once again noted involving the humeral neck and greater tuberosity. There is displacement of the greater tuberosity laterally x 12 mm. Increasing callus formation is noted. No evidence of dislocation. IMPRESSION: Healing humeral neck fracture with developing callus formation. Displaced greater tuberosity fragment as before
--- NOTE | 2018-06-09 09:30 | XR_ITS ---
XR wrist RT min 3V HISTORY pain following injury ITS.REASON: possible right wrist fracture ORDERING PHYSICIAN: Yissel Salguero MD PATIENT AGE: 78 years Comparison: None FINDINGS: There is a mildly displaced fracture involving the distal shaft of the ulna. The fracture is transverse in nature and the distal fracture fragment is is displaced medially x 3 mm. There is good alignment. The radial ulnar joint appears intact IMPRESSION: Mildly displaced distal ulnar fracture
== END ==
PROVIDERS: PCP Internal Medicine Adolescent Medicine; Visit Provider Orthopaedic Surgery
DX: S42.201A Unspecified fracture of upper end of right humerus, initial encounter for closed fracture (principal); M25.531 Pain in right wrist
CPT/HCPCS: 73030; 73070; 73110

== ENCOUNTER 2018-06-09 10:41 | Outpatient (RCR) | payer MEDICARE, SELFPAY | END 2018-06-22 16:30 | disposition home or self-care (01) | LOC: OT 10:41 | PROVIDERS: Visit Provider Orthopaedic Surgery | DX: M25.531 Pain in right wrist (principal) | CPT/HCPCS: 97763 ==

== ENCOUNTER → 2018-07-11 09:44 | Outpatient (CLI) | payer MEDICARE, SELFPAY ==
--- NOTE | 2018-07-11 09:50 | XR_ITS ---
XR wrist RT min 3V HISTORY follow-up fracture with pain ITS.REASON: Rt wrist pain ORDERING PHYSICIAN: Yissel Salguero MD PATIENT AGE: 78 years Comparison: 06/09/2018 FINDINGS: There is a healing fracture involving the distal shaft of the ulna. The fracture is 4 cm proximal to the distal surface of the ulna. There is 3 mm ulnar and dorsal displacement of the distal fracture fragment with minimal dorsal angulation. There is callus formation developing. IMPRESSION: Healing mildly displaced distal ulnar fracture
--- NOTE | 2018-07-11 09:50 | XR_ITS ---
XR shoulder RT min 2V HISTORY: Follow-up fracture ITS.REASON: Rt shoulder pain ORDERING PHYSICIAN: Yissel Salguero MD PATIENT AGE: 78 years Comparison: 06/09/2018 FINDINGS: There is a healing comminuted and impacted fracture of the right humeral neck. There is moderate amount of callus formation noted. Fracture lines are still visible. Is mild inferior subluxation of the humeral head. IMPRESSION: Healing comminuted intact and fracture of the right humeral neck
== END ==
PROVIDERS: PCP Internal Medicine Adolescent Medicine; Visit Provider Orthopaedic Surgery
DX: M25.531 Pain in right wrist (principal); S42.91XA Fracture of right shoulder girdle, part unspecified, initial encounter for closed fracture
CPT/HCPCS: 73030; 73110

== ENCOUNTER 2018-08-05 18:26 | Inpatient (IN) ==
--- NOTE | 2018-08-05 18:52 | Emergency Department Note ---
ED Disposition Clinical Impression: Pneumonia, Influenza Disposition: Still a Patient Condition on Discharge: Fair Referrals: Efren Marte [Primary Care Provider] - - Critical Care Critical Care Time: No Attestation: On 08/05/18, the high probability of a clinically significant, sudden or life threatening deterioration of the following system(s) required my full and direct attention, intervention and personal management. The time I documented below is in addition to time spent performing reported procedures but includes the following listed in this critical care notation. Medical Decision Making - Medical Records Medical records reviewed: Yes: I reviewed the patient's medical records. - Jasen Inquiry Pt receiving controlled substance: No Jasen was queried for this patient: No Vital Signs: 08/05/18 18:27 Temperature 100.5 F H Temperature Source Oral Pulse Rate [Left Radial] 73 Respiratory Rate 20 Blood Pressure [Right Arm] 157/87 H Blood Pressure Mean [Right Arm] 110 Blood Pressure Source [Right Arm] Automatic Cuff Blood Pressure Position [Right Arm] Sitting 02 Sat by Pulse Oximetry 90 L Oxygen Delivery Method Nasal Cannula Oxygen Flow Rate (LPM) 2 - Lab Data Lab Results 08/05/18 18:37: Influenza Type A Ag Positive A, Influenza Type B Ag Negative 08/05/18 18:46: WBC 3.5 L, RBC 4.12 L, Hgb 12.6 L, Hct 38.9 L, MCV 94.5 H, MCH 30.7, MCHC 32.5, RDW 14.7, Plt Count 121 L, MPV 8.1, Neut % (Auto) 70.6, Lymph % (Auto) 17.8, Andrews % (Auto) 10.9 H, Eos % (Auto) 0.2, Baso % (Auto) 0.4, Neut # (Auto) 2.4, Lymph # (Auto) 0.6 L, Andrews # (Auto) 0.4, Eos # (Auto) 0.0, Baso # (Auto) 0.0 08/05/18 18:46: Sodium 141, Potassium 3.5, Chloride 104, Carbon Dioxide 30, Anion Gap 10.5, BUN 14, Creatinine 0.90, Estimated Creat Clear 79, Estimated GFR 81, Est GFR ( Amer) 98, Glucose 103, Calcium 8.6, Total Bilirubin 0.4, AST 35, ALT 22, Alkaline Phosphatase 197 H, Troponin I 0.06, Total Protein 6.6, Albumin 3.0 L, Globulin 3.6 H, Albumin/Globulin Ratio 0.8 L 08/05/18 18:46: Lactate 0.4 08/05/18 18:46: B-Natriuretic Peptide 329 H 08/05/18 18:55: Group A Strep Rapid Negative 08/05/18 19:07: Specimen Source R/r, O2 % 2, ABG pH 7.47 H, ABG pCO2 37.6, ABG pO2 64.3 L, ABG HCO3 26.5 H, ABG Total CO2 27.7 H, ABG O2 Saturation 93, ABG Base Excess 2.8 H, Jimbo Test Y Result diagrams: 08/05/18 18:46 08/05/18 18:46 Orders (Tests/Meds): ORDERS Category Date Time Status XR chest portable Stat Exams 08/05/18 18:40 Taken UA [Urinalysis and Microscopic] Stat Lab 08/05/18 18:52 Ordered Blood Culture Stat Micro 08/05/18 18:40 Ordered Strep Screen Confirmation Stat Micro 08/05/18 18:55 Received ABG [Arterial Blood Gas] Stat RT 08/05/18 18:53 Ordered 12-lead EKG Request [ECG Request by /Ada] Stat Y 08/05/18 18:40 Ordered - Radiology Data #1 Image(s): Chest Image Reviewed: Yes I reviewed the patient's radiology image Preliminary Findings: Abnormal Mentionable right perihilar infiltrate - ECG Data Tracing #1 Normal sinus rhythm 80/min first-degree AV block old Q waves in anterior leads no acute fine ECG initial impression date: 08/05/18 ECG initial impression time: 18:45 Medical Decision Narrative: Patient required oxygen to maintain his oxygen saturation of 90%. His white count was 3.5 with no shift. His flu screen was positive for flu A. I called Dr. Martinez who agreed to admit him for hospital-acquired pneumonia and influenza A.. General Adult HPI - General Chief complaint: Shortness of Breath/Dyspnea Stated complaint: Upper respiratory Time Seen by Provider: 08/05/18 18:40 Mode of Arrival: EMS Limitations: No Limitations Description of Symptoms (Recalled from ER Triage Doc. by RN): cough, soa, flu like symptoms - History of Present Illness HPI narrative: 78 years old white male care home resident presented to the ED with 2-day history of fever cough and shortness of breath. Upon EMS arrival his oxygen saturation was 82% on room air heart rate was 82/min blood pressure 174/84 and temperature is 100.5 he is in no cardiopulmonary distress. Onset (ago): day(s) (2 days.) Severity: mild Relieving factors: none Exacerbating factors: none - Related Data Home Medications Medication Instructions Recorded Confirmed Atorvastatin Calcium [Atorvastatin 80 mg PO DAILY 03/03/18 07/11/18 80mg Tab] Clopidogrel Bisulfate [Plavix 75mg 75 mg PO DAILY 03/03/18 07/11/18 Tab] Ferrous Sulfate 325 mg PO BID 03/03/18 07/11/18 Finasteride [Proscar 5mg Tablet] 5 mg PO DAILY 03/03/18 07/11/18 Metoprolol Tartrate [Lopressor 12.5 mg PO BID 03/03/18 07/11/18 25mg tablet] Nitroglycerin 0.4 mg SL NEEDED PRN 03/03/18 07/11/18 Pantoprazole Sodium [Protonix 40mg 40 mg PO BID 03/03/18 07/11/18 tablet] Tamsulosin HCl [Flomax 0.4mg 0.4 mg PO HS 03/03/18 07/11/18 capsule] Previous Rx's Medication Instructions Recorded Acetaminophen [Acetaminophen 325mg 650 mg PO Q4HP PRN tab 05/23/18 tab] Lisinopril [Zestril 5mg 5 mg PO DAILY tab 05/23/18 Tablet] Allergies Allergy/AdvReac Type Severity Reaction Status Date / Time Sulfa (Sulfonamide Allergy Unknown Verified 07/11/18 10:19 Antibiotics) [SULFA (SULFONAMIDE ANTIBIOTICS)] [facility] History - Hepatitis A Screen Drug use history?: No High risk sexual behaviors?: No History of sexually transmitted infection?: No Currently employed?: No Childcare worker?: No Do you have indoor plumbing?: Yes Do you have electricity?: Yes Attestation statement:: This patient has been screened for Hepatitis A risk factors. I have reviewed the patient's past medical history: Yes Medical History: Reports:: Aneurysm, Chronic Obstructive Pulmonary Disease (COPD), Coronary Artery Disease, Hyperlipidemia, Hypertension, Kidney Stones Denies:: Cancer, Diabetes Mellitus Type 1, Diabetes Mellitus Type 2, Internal Pacemaker, MRSA Other Surgeries: Yes: Coronary Stent, Other (kidney stones). 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 Absent: scleral icterus, nystagmus - ENT ENT exam: Present: normal exam, normal oropharynx, mucous membranes moist, TM's normal bilaterally, normal external ear exam, other (He is hard hearing. ) - Neck Neck exam: Present: normal inspection, full ROM, trachea midline. Absent: tenderness, meningismus, lymphadenopathy - Chest Chest inspection: Present: normal inspection, symmetric chest wall rise. Absent: tenderness - Respiratory Respiratory exam: Present: normal lung sounds bilaterally, other (Find bibasilar crackles. ). Absent: respiratory distress, wheezes - Cardiovascular Cardiovascular exam: Present: regular rate, normal rhythm. Absent: JVD - Abdominal Exam Abdominal exam: Present: soft, normal bowel sounds. Absent: distention, tenderness, guarding - Extremities Exam Extremities exam: Present: normal inspection, full ROM, normal capillary refill. Absent: calf tenderness - Back Exam Back exam: Present: normal inspection. Absent: tenderness - Neurological Exam Neurological exam: Present: alert, oriented X3, CN II-XII intact, motor sensory deficit, reflexes normal - Psychiatric Psychiatric exam: Present: normal affect, normal mood - Skin Skin exam: Present: warm, dry, intact, normal color - Lymphatic Lymphatic Findings: no adenopathy
[2018-08-05 19:07] LABS: Basophils % 0.4 % (0.1-2.0); Eosinophils % 0.2 % (0.1-12.0); Hematocrit 38.9 % (42.0-52.0); Hemoglobin 12.6 g/dL (14.1-18.0); Lymphocytes # 0.6 K/mm3 (0.7-4.5); Lymphocytes % 17.8 % (10-50); Mean Corpuscular HGB Conc 32.5 g/dL (31.8-35.4); Mean Corpuscular Hemoglobin 30.7 pg (27.0-31.2); Mean Corpuscular Volume 94.5 fl (80-94); Mean Platelet Volume 8.1 fl (7.4-10.4); Monocytes # 0.4 K/mm3 (0.1-1.0); Monocytes % 10.9 % (1.7-9.3); Neutrophils # 2.4 K/mm3 (1.8-7.8); Neutrophils % 70.6 % (37.0-80.0); Platelet Count 121 K/mm3 (142-424); Red Blood Count 4.12 M/mm3 (4.60-6.20); Red Cell Distribution Width 14.7 % (11.5-17.5); White Blood Count 3.5 K/mm3 (4.8-10.8)
[2018-08-05 19:09] LABS: ABG Base Excess 2.8 mmol/L (-2.4-2.3); ABG HCO3 26.5 mmhg (22.0-26.0); ABG Oxygen Saturation 93 % (90-100); ABG PCO2 37.6 mmhg (35.0-45.0); ABG PH 7.47 mmol/L (7.35-7.45); ABG PO2 64.3 mmhg (80-100); ABG TCO2 27.7 mmhg (23-27); Allen's Test Y; Oxygen 2 %
[2018-08-05 19:12] LABS: Albumin/Globulin Ratio 0.8 (1.1-1.8); Anion Gap 10.5 mEq/L (5-15); Bilirubin,Total 0.4 mg/dL (0.2-1.0); Calcium 8.6 mg/dL (8.5-10.1); Globulin 3.6 gm/dl (1.3-3.2); Potassium 3.5 mmoL/L (3.5-5.1); Total Protein,Serum 6.6 gm/dL (6.4-8.2)
[2018-08-06 06:01] LABS: Basophils % 0.3 % (0.1-2.0); Eosinophils % 0.2 % (0.1-12.0); Hematocrit 35.3 % (42.0-52.0); Hemoglobin 11.4 g/dL (14.1-18.0); Lymphocytes # 0.6 K/mm3 (0.7-4.5); Lymphocytes % 17.7 % (10-50); Mean Corpuscular HGB Conc 32.3 g/dL (31.8-35.4); Mean Corpuscular Hemoglobin 30.5 pg (27.0-31.2); Mean Corpuscular Volume 94.5 fl (80-94); Monocytes # 0.4 K/mm3 (0.1-1.0); Monocytes % 10.7 % (1.7-9.3); Neutrophils # 2.5 K/mm3 (1.8-7.8); Neutrophils % 71.1 % (37.0-80.0); Platelet Count 112 K/mm3 (142-424); Red Blood Count 3.74 M/mm3 (4.60-6.20); Red Cell Distribution Width 14.6 % (11.5-17.5); White Blood Count 3.4 K/mm3 (4.8-10.8)
[2018-08-06 06:18] LABS: Anion Gap 13.5 mEq/L (5-15); Calcium 8.1 mg/dL (8.5-10.1); Potassium 3.5 mmoL/L (3.5-5.1)
--- NOTE | 2018-08-06 11:16 | Pharmacy Consult Notes ---
[facility] Pharmacy VTE Monitoring - Patient Demographics Admission date: 08/05/18 Report Date: 08/06/18 Time: 11:16 Allergies/Adverse Reactions: Patient Allergies Sulfa (Sulfonamide Antibiotics) [SULFA (SULFONAMIDE ANTIBIOTICS)] Allergy (Unknown, Verified 07/11/18 10:19) Height: 1.83 m Weight: 69.428 kg Patient Problems: Current Active Problems Pneumonia (Acute) Influenza (Acute) - VTE Risk Labs: VTE Related Lab Results Hgb 11.4 g/dL (14.1-18.0) L 08/06/18 05:25 Hct 35.3 % (42.0-52.0) L 08/06/18 05:25 Plt Count 112 K/mm3 (142-424) L 08/06/18 05:25 BUN 16 mg/dL (7-18) 08/06/18 05:25 Creatinine 0.82 mg/dL (0.70-1.30) 08/06/18 05:25 Estimated Creat Clear 58 mL/min (50-200) 08/06/18 05:25 Was VTE Risk Assessment Performed: Yes VTE Score: 5 VTE Risk Level: Low Risk - Prophylaxis VTE Prophylaxis Ordered?: Yes Types of VTE Prophylaxis: TEDS Knee High Location of Applied Device: Bilateral Lower Extremeties
--- NOTE | 2018-08-06 12:04 | History & Physical Report ---
*Admission Date: 08/05/18 *Chief complaint: Cough and shortness of breath *History of present illness: 78 yr old male with history of dementia and heart disease presented to ED from his intermediate yesterday evening with new onset cough, fever and shortness of breath. Per ED report these symptoms had been developing over about a 48 hour period. Mr. Granger is alert but only oriented x 1 this morning, thus his recall of events is unreliable. ED workup revealed left lower lobe pneumonia and rapid testing positive for influenza A. He required supplemental oxygen and thus, was admitted for hospital management. [facility] History I have reviewed the patient's past medical history: Yes Medical History: Reports:: Aneurysm, BPH, Chronic Obstructive Pulmonary Disease (COPD), Coronary Artery Disease, Dementia, Hyperlipidemia, Hypertension, Kidney Stones, Peripheral Vascular Disease Denies:: Cancer, Diabetes Mellitus Type 1, Diabetes Mellitus Type 2, Internal Pacemaker, MRSA Have you ever received a pneumonia vaccine?: Yes Have you received a flu vaccine this season?: Yes Other Medical History: Reports: Anemia Other Surgeries: Yes: Coronary Stent, Other (kidney stones) Amputation: No Fractures: Yes (right humerus and ulna) - *Social History Educational Level: Attended High School Smoking Status: Light tobacco smoker Tobacco Type: cigarettes # Packs/Day (cigarettes): 1 #Yrs smoked (if former smoker): 70 Alcohol Intake: never Alcohol Intake Frequency:: other Occupational Status: retired Housing: intermediate Household Members: other Travel in the last 8 weeks: None - Psychiatric History Expresses thoughts of harming self/others: None Suicide Plan Description: No Plan Family Hx:: Unable to obtain Review of Systems - Review of Systems Review of systems:: pertinent systems reviewed and negative unless documented below - Constitutional Reports fatigue, Reports fever(s), Denies anorexia - *Cardiovascular Reports shortness of breath, Denies chest pain - *Respiratory Reports chest congestion, Reports cough, Reports shortness of breath - *Gastrointestinal Denies abdominal pain - *Genitourinary Denies difficulty urinating - *Musculoskeletal Comments: right wrist splint for healing ulnar fracture present on admission - *Neurologic Reports confusion Comments: chronic Meds Home Medications Medication Instructions Recorded Confirmed Type Atorvastatin Calcium [Atorvastatin 80 mg PO DAILY 03/03/18 08/05/18 History 80mg Tab] Clopidogrel Bisulfate [Plavix 75mg 75 mg PO DAILY 03/03/18 08/05/18 History Tab] Ferrous Sulfate 325 mg PO BID 03/03/18 08/05/18 History Finasteride [Proscar 5mg Tablet] 5 mg PO DAILY 03/03/18 08/05/18 History Nitroglycerin 0.4 mg SL NEEDED PRN 03/03/18 08/05/18 History Pantoprazole Sodium [Protonix 40mg 40 mg PO BID 03/03/18 08/05/18 History tablet] Acetaminophen [Acetaminophen 325mg 650 mg PO Q4HP PRN tab 05/23/18 08/05/18 Rx tab] Escitalopram Oxalate [Lexapro] 10 mg PO HS 08/05/18 08/05/18 History Fluticasone/Vilanterol [Breo 1 inhalation IH HS 08/05/18 08/06/18 History Ellipta 100-25 Mcg INH] Saccharomyces Boulardii [Probiotic] 250 mg PO DAILY 08/05/18 08/05/18 History Lisinopril [Lisinopril 10mg Tab] 10 mg PO DAILY 08/06/18 08/06/18 History Allergies Allergy/AdvReac Type Severity Reaction Status Date / Time Sulfa (Sulfonamide Allergy Unknown Verified 07/11/18 10: Antibiotics) [SULFA (SULFONAMIDE ANTIBIOTICS)] Exam Vital signs and Labs for Last 24 Hours: Temp Pulse Resp BP Pulse Ox 99.0 F 60 20 121/57 L 92 L 08/06/18 11:56 08/06/18 11:56 08/06/18 11:56 08/06/18 11:56 08/06/18 11:56 Laboratory Results - last 24 hr 08/05/18 18:37: Influenza Type A Ag Positive A, Influenza Type B Ag Negative 08/05/18 18:46: WBC 3.5 L, RBC 4.12 L, Hgb 12.6 L, Hct 38.9 L, MCV 94.5 H, MCH 30.7, MCHC 32.5, RDW 14.7, Plt Count 121 L, MPV 8.1, Neut % (Auto) 70.6, Lymph % (Auto) 17.8, Person % (Auto) 10.9 H, Eos % (Auto) 0.2, Baso % (Auto) 0.4, Neut # (Auto) 2.4, Lymph # (Auto) 0.6 L, Person # (Auto) 0.4, Eos # (Auto) 0.0, Baso # (Auto) 0.0 08/05/18 18:46: Sodium 141, Potassium 3.5, Chloride 104, Carbon Dioxide 30, Anion Gap 10.5, BUN 14, Creatinine 0.90, Estimated Creat Clear 79, Estimated GFR 81, Est GFR ( Amer) 98, Glucose 103, Calcium 8.6, Total Bilirubin 0.4, AST 35, ALT 22, Alkaline Phosphatase 197 H, Troponin I 0.06, Total Protein 6.6, Albumin 3.0 L, Globulin 3.6 H, Albumin/Globulin Ratio 0.8 L 08/05/18 18:46: Lactate 0.4 08/05/18 18:46: B-Natriuretic Peptide 329 H 08/05/18 18:55: Group A Strep Rapid Negative 08/05/18 19:07: Specimen Source R/r, O2 % 2, ABG pH 7.47 H, ABG pCO2 37.6, ABG pO2 64.3 L, ABG HCO3 26.5 H, ABG Total CO2 27.7 H, ABG O2 Saturation 93, ABG Base Excess 2.8 H, Jimbo Test Y 08/06/18 05:25: WBC 3.4 L, RBC 3.74 L, Hgb 11.4 L, Hct 35.3 L, MCV 94.5 H, MCH 30.5, MCHC 32.3, RDW 14.6, Plt Count 112 L, MPV 8.0, Neut % (Auto) 71.1, Lymph % (Auto) 17.7, Person % (Auto) 10.7 H, Eos % (Auto) 0.2, Baso % (Auto) 0.3, Neut # (Auto) 2.5, Lymph # (Auto) 0.6 L, Person # (Auto) 0.4, Eos # (Auto) 0.0, Baso # (Auto) 0.0 08/06/18 05:25: Sodium 142, Potassium 3.5, Chloride 106, Carbon Dioxide 26, Anion Gap 13.5, BUN 16, Creatinine 0.82, Estimated Creat Clear 58, Estimated GFR 90, Est GFR ( Amer) 109, Glucose 97, Calcium 8.1 L I & O for Last 24 hours: Intake & Output 08/04/18 08/05/18 08/06/18 08/07/18 11:59 11:59 11:59 11:59 Intake Total 628 / 628 Balance 628 / 628 Weight 153 lb 1 oz - Constitutional no acute distress, cooperative - *Routine HEENT Exam Head: Present: atraumatic Eye: Present: conjunctivae pink ENT: Present: mucous membranes moist Comments: poor dentition - *Routine Neck Exam Present: supple - *Routine Respiratory Exam Present: rales (left base and mid-lung), rhonchi (bilaterally). Absent: accessory muscle use - *Routine Cardiovascular Exam Present: RRR, murmur - *Routine Abdominal Exam Present: soft, normoactive bowel sounds. Absent: tenderness, distended - *Routine Extremities Exam Present: pulses intact, normal capillary refill. Absent: clubbing, edema - *Routine Skin Exam Present: intact. Absent: rash - *Routine Neurological Exam Present: alert (oriented to person only), moving all extremities Assessment and Plan (1) Influenza A Current visit: Yes Status: Acute Category: Medical Code(s): J10.1 - Influenza due to other identified influenza virus with other respiratory manifestations Continue tamiflu and supportive measures, oxygen requirements currently stable (2) HCAP (healthcare-associated pneumonia) Current visit: Yes Status: Acute Category: Medical Code(s): J18.9 - Pneumonia, unspecified organism Continue coverage with levaquin and cefepime, sputum culture ordered, blood cultures pending (3) Anemia, chronic disease Current visit: Yes Status: Chronic Category: Medical Code(s): D63.8 - Anemia in other chronic diseases classified elsewhere at baseline for patient (4) Physical debility Current visit: Yes Status: Chronic Category: Medical Code(s): R53.81 - Other malaise Residing in long-term care facility for the past approximately 3 months (5) Right distal ulnar fracture Current visit: Yes Status: Acute Qualifiers: Encounter type: subsequent encounter Fracture type: closed Fracture healing: with routine healing Category: Medical Code(s): S52.601A - Unspecified fracture of lower end of right ulna, initial encounter for closed fracture present on admission, continue splint (6) Dementia Current visit: Yes Status: Chronic Qualifiers: Dementia type: Alzheimer's disease Alzheimer's disease onset: late-onset Dementia behavioral disturbance: with behavioral disturbance Qualified Code(s): G30.1 - Alzheimer's disease with late onset; F02.81 - Dementia in other diseases classified elsewhere with behavioral disturbance Category: Medical Code(s): F03.90 - Unspecified dementia without behavioral disturbance chronic, monitor for exacerbations due to acute illness
[2018-08-07 06:25] LABS: Basophils % 0.3 % (0.1-2.0); Eosinophils % 0.1 % (0.1-12.0); Hematocrit 34.9 % (42.0-52.0); Hemoglobin 11.4 g/dL (14.1-18.0); Lymphocytes # 0.7 K/mm3 (0.7-4.5); Mean Corpuscular HGB Conc 32.6 g/dL (31.8-35.4); Mean Corpuscular Hemoglobin 30.9 pg (27.0-31.2); Mean Corpuscular Volume 94.8 fl (80-94); Mean Platelet Volume 8.1 fl (7.4-10.4); Monocytes # 0.2 K/mm3 (0.1-1.0); Monocytes % 10.5 % (1.7-9.3); Neutrophils # 1.2 K/mm3 (1.8-7.8); Neutrophils % 54.1 % (37.0-80.0); Platelet Count 101 K/mm3 (142-424); Red Blood Count 3.69 M/mm3 (4.60-6.20); Red Cell Distribution Width 14.5 % (11.5-17.5); White Blood Count 2.1 K/mm3 (4.8-10.8)
[2018-08-07 06:37] LABS: Anion Gap 11.7 mEq/L (5-15); Calcium 8.2 mg/dL (8.5-10.1)
[2018-08-07 06:46] LABS: Potassium 2.7 mmoL/L (3.5-5.1)
--- NOTE | 2018-08-07 08:15 | Discharge Summary ---
General - General Admission date:: 08/05/18 Discharge date: 08/07/18 HPI HPI: 78 yr old male with history of dementia and heart disease presented to ED from his halfway yesterday evening with new onset cough, fever and shortness of breath. Per ED report these symptoms had been developing over about a 48 hour period. Mr. Granger is alert but only oriented x 1 this morning, thus his recall of events is unreliable. ED workup revealed left lower lobe pneumonia and rapid testing positive for influenza A. He required supplemental oxygen and thus, was admitted for hospital management. Hospital Course Hospital Course: Patient was admitted to hospital. Treated with cefepime and levofloxacin for halfway acquired pneumonia. Influenza a serology was noted and patient was started on Tamiflu. Patient improved nicely with supportive care over the next couple of days. This morning he was doing well, eating well. Was noticed to be hypokalemic. This was replaced orally as patient is eating, and this will be monitored back at his halfway. Given his stable situation from his oxygenation status and his improvement with medications he will be transferred back to the [facility]. Please note he will need Levaquin therapy at 500 mg daily for 7 more days as well as finishing his Tamiflu prescription, potassium will need to be monitored on Tuesday morning with a BMP. Objective Vital signs: Temp Pulse Resp BP Pulse Ox 98.3 F 89 16 153/69 H 90 L 08/07/18 03:36 08/07/18 05:42 08/07/18 03:36 08/07/18 03:36 08/07/18 05:42 Narrative: Patient is alert. Oriented x1. Oropharynx clear. Moist mucosa. No JVD. Lungs have rhonchi bilaterally but good air movement. No respiratory distress. No tachypnea. Heart rate regular. Abdomen soft and nontender. No edema or clubbing or perfusion deficits in the extremities. Results Labs on day of discharge: Labs from last 24 hours 08/07/18 08/07/18 08/06/18 05:26 05:26 13:54 WBC 2.1 L D RBC 3.69 L Hgb 11.4 L Hct 34.9 L MCV 94.8 H MCH 30.9 MCHC 32.6 RDW 14.5 Plt Count 101 L MPV 8.1 Neut % (Auto) 54.1 Lymph % (Auto) 35.0 [place] % (Auto) 10.5 H Eos % (Auto) 0.1 Baso % (Auto) 0.3 Neut # (Auto) 1.2 L Lymph # (Auto) 0.7 [place] # (Auto) 0.2 Eos # (Auto) 0.0 Baso # (Auto) 0.0 Sodium 140 Potassium 2.7 L* D Chloride 104 Carbon Dioxide 27 Anion Gap 11.7 BUN 14 Creatinine 0.91 Estimated Creat Clear 58 Estimated GFR 80 Est GFR ( Amer) 97 Glucose 88 Calcium 8.2 L Stl Aeromonas (PCR) Not detected Stl C. cayetanensis PCR Not detected Stool Rotavirus (PCR) Not detected Stl Adenov F 40/41 PCR Not detected Stool Astrovirus (PCR) Not detected Stool Campylobacter PCR Not detected Stl C.difficile Tox PCR Not detected Stool Cryptosporidium PCR Not detected Stl E.coli Shiga Tox PCR Not detected Stool E coli O157 PCR Not detected Stl Enterotoxigenic E PCR Not detected Stool EPEC (PCR) Not detected Stool EAEC (PCR) Not detected Stl E. histolytica PCR Not detected Stool Giardia Lamblia PCR Not detected Stool Salmonella PCR Not detected Stool Sapovirus (PCR) Not detected Stl P. shigelloides PCR Not detected Stl Shigella/EIEC PCR Not detected St Y.enterocolitica PCR Not detected Stool Vibrio (PCR) Not detected Stl Vibrio cholerae PCR Not detected Stl Norovirus GI/GII PCR Not detected Preliminary micro results at discharge 08/06/18 15:54 Sputum Culture - Preliminary Sputum - Expectorated Sputum DS: Diagnosis - Discharge Diagnosis (1) Influenza A Status: Acute (2) HCAP (healthcare-associated pneumonia) Status: Acute (3) Anemia, chronic disease Status: Chronic (4) Physical debility Status: Chronic (5) Right distal ulnar fracture Status: Acute (6) Dementia Status: Chronic (7) Hypokalemia Status: Acute Discharge Plan - Patient Discharge Instructions ACTIVITY: Continue current activity DIET: continue same diet Patient Instructions: Pneumonia-Adult, DI for Influenza -- Adult - Follow up Plan Follow up with: Lenore Haro APRN [Nurse Practitioner] - 08/14/18 Disposition: Xfer SNF Home Medications: Home Medications Medication Instructions Recorded Confirmed Type Atorvastatin Calcium [Atorvastatin 80 mg PO DAILY 03/03/18 08/05/18 History 80mg Tab] Clopidogrel Bisulfate [Plavix 75mg 75 mg PO DAILY 03/03/18 08/05/18 History Tab] Ferrous Sulfate 325 mg PO BID 03/03/18 08/05/18 History Finasteride [Proscar 5mg Tablet] 5 mg PO DAILY 03/03/18 08/05/18 History Nitroglycerin 0.4 mg SL NEEDED PRN 03/03/18 08/05/18 History Pantoprazole Sodium [Protonix 40mg 40 mg PO BID 03/03/18 08/05/18 History tablet] Acetaminophen [Acetaminophen 325mg 650 mg PO Q4HP PRN tab 05/23/18 08/05/18 Rx tab] Escitalopram Oxalate [Lexapro] 10 mg PO HS 08/05/18 08/05/18 History Fluticasone/Vilanterol [Breo 1 inhalation IH HS 08/05/18 08/06/18 History Ellipta 100-25 Mcg INH] Saccharomyces Boulardii [Probiotic] 250 mg PO DAILY 08/05/18 08/05/18 History Lisinopril [Lisinopril 10mg Tab] 10 mg PO DAILY 08/06/18 08/06/18 History Oseltamivir Phosphate [Tamiflu 75 mg PO BID #10 cap 08/07/18 Rx 75mg Capsule] Potassium Chloride 20 meq PO DAILY #30 tablet.er 08/07/18 Rx levoFLOXacin [Levaquin 500mg 500 mg PO DAILY #7 tab 08/07/18 Rx tab] Prescriptions/Medication Reconciliation: New Oseltamivir Phosphate [Tamiflu 75mg Capsule] 75 mg PO BID #10 cap Potassium Chloride 20 meq PO DAILY #30 tablet.er levoFLOXacin [Levaquin 500mg tab] 500 mg PO DAILY #7 tab Continue Pantoprazole Sodium [Protonix 40mg tablet] 40 mg PO BID Finasteride [Proscar 5mg Tablet] 5 mg PO DAILY Ferrous Sulfate 325 mg PO BID Atorvastatin Calcium [Atorvastatin 80mg Tab] 80 mg PO DAILY Nitroglycerin 0.4 mg SL NEEDED PRN PRN Reason: Chest Pain Acetaminophen [Acetaminophen 325mg tab] 650 mg PO Q4HP PRN tab PRN Reason: As Needed For Fever Or Pain Fluticasone/Vilanterol [Breo Ellipta 100-25 Mcg INH] 1 inhalation IH HS Saccharomyces Boulardii [Probiotic] 250 mg PO DAILY Escitalopram Oxalate [Lexapro] 10 mg PO HS Clopidogrel Bisulfate [Plavix 75mg Tab] 75 mg PO DAILY Lisinopril [Lisinopril 10mg Tab] 10 mg PO DAILY
== END 2018-08-07 11:26 | DRG 195 ==
LOC: ER 18:26 → 2ND 20:00
PROVIDERS: ADMIT Internal Medicine Adolescent Medicine; ATTEND Internal Medicine Adolescent Medicine
CPT/HCPCS: 36415; 71010; 71045; 80048; 80053; 82803; 83605; 83880; 84484; 85025; 87040; 87070; 87205; 87275; 87276; 87430; 87507; 93005; 94640; 94760; 96365; 99284; J0692; J1956; J2405

== ENCOUNTER → 2018-08-16 10:52 | Outpatient (CLI) | payer MEDICARE, SELFPAY ==
--- NOTE | 2018-08-16 10:57 | XR_ITS ---
XR shoulder RT min 2V HISTORY: Follow-up fracture ITS.REASON: Ap of shoulder, Grashey, Scapular-Y, Axillary ORDERING PHYSICIAN: Yissel Salguero MD PATIENT AGE: 78 years Comparison: 07/11/2018 FINDINGS: The comminuted fracture of the humeral neck once again noted not significantly displaced and moderately impacted. Increasing callous formation noted. No evidence of shoulder dislocation. IMPRESSION: Healing impacted right humeral neck fracture
--- NOTE | 2018-08-16 10:57 | XR_ITS ---
XR wrist RT min 3V HISTORY follow-up fracture ITS.REASON: xrays out of splint ORDERING PHYSICIAN: Yissel Salguero MD PATIENT AGE: 78 years Comparison: 07/11/2018 FINDINGS: Nondisplaced fracture of the distal shaft of the ulna once again noted. There is good alignment of the distal fracture fragment. The fracture is 4 cm proximal to the distal tip of the ulna. There is mild dorsal and ulnar displacement of the distal fracture fragment x 3 mm. Fracture line is somewhat less apparent with increasing callus formation. IMPRESSION: Healing mildly displaced distal ulnar fracture
== END ==
PROVIDERS: PCP Internal Medicine Adolescent Medicine; Visit Provider Orthopaedic Surgery
DX: S42.201A Unspecified fracture of upper end of right humerus, initial encounter for closed fracture; S52.601A Unspecified fracture of lower end of right ulna, initial encounter for closed fracture
CPT/HCPCS: 73030; 73110

== ENCOUNTER 2018-11-06 21:44 | Inpatient (IN) ==
[2018-11-06 22:08] LABS: Basophils % 0.5 % (0.1-2.0); Eosinophils # 0.2 K/mm3 (0.0-0.4); Eosinophils % 2.4 % (0.1-12.0); Hematocrit 35.5 % (42.0-52.0); Hemoglobin 11.5 g/dL (14.1-18.0); Lymphocytes # 1.1 K/mm3 (0.7-4.5); Lymphocytes % 17.4 % (10-50); Mean Corpuscular HGB Conc 32.5 g/dL (31.8-35.4); Mean Corpuscular Hemoglobin 30.9 pg (27.0-31.2); Mean Corpuscular Volume 95.3 fl (80-94); Mean Platelet Volume 8.4 fl (7.4-10.4); Monocytes # 0.4 K/mm3 (0.1-1.0); Monocytes % 6.2 % (1.7-9.3); Neutrophils # 4.7 K/mm3 (1.8-7.8); Neutrophils % 73.6 % (37.0-80.0); Platelet Count 152 K/mm3 (142-424); Red Blood Count 3.73 M/mm3 (4.60-6.20); Red Cell Distribution Width 14.3 % (11.5-17.5); White Blood Count 6.3 K/mm3 (4.8-10.8)
[2018-11-06 22:21] LABS: Albumin Level 3.1 gm/dL (3.4-5.0); Albumin/Globulin Ratio 0.9 (1.1-1.8); Anion Gap 13.1 mEq/L (5-15); Bilirubin,Total 0.4 mg/dL (0.2-1.0); Globulin 3.6 gm/dl (1.3-3.2); Potassium 3.1 mmoL/L (3.5-5.1); Total Protein,Serum 6.7 gm/dL (6.4-8.2)
--- NOTE | 2018-11-06 23:14 | Emergency Department Note ---
ED Disposition Clinical Impression: Hypokalemia Hip fracture, intertrochanteric Qualifiers: Encounter type: initial encounter Fracture type: closed Fracture alignment: displaced Laterality: left Qualified Code(s): S72.142A - Displaced intertrochanteric fracture of left femur, initial encounter for closed fracture Disposition: Admitted As Inpatient Condition on Discharge: Good Referrals: Julio Connors MD [Primary Care Provider] - - Critical Care Critical Care Time: No Attestation: On 11/06/18, the high probability of a clinically significant, sudden or life threatening deterioration of the following system(s) required my full and direct attention, intervention and personal management. The time I documented below is in addition to time spent performing reported procedures but includes the following listed in this critical care notation. Medical Decision Making - Medical Records Medical records reviewed: Yes: I reviewed the patient's medical records. - Jasen Inquiry Pt receiving controlled substance: No Vital Signs: 11/06/18 21:44 11/06/18 22:44 Temperature 98.1 F Temperature Source Rectal Pulse Rate [Right Brachial] 65 74 Respiratory Rate 15 15 Blood Pressure [Right Arm] 171/83 H 158/87 H Blood Pressure Mean [Right Arm] 112 110 02 Sat by Pulse Oximetry 92 L 93 L Oxygen Delivery Method Room Air Room Air - Lab Data Lab results reviewed: Yes: I reviewed the patient's lab results. Lab Results 11/06/18 21:55: WBC 6.3, RBC 3.73 L, Hgb 11.5 L, Hct 35.5 L, MCV 95.3 H, MCH 30.9, MCHC 32.5, RDW 14.3, Plt Count 152, MPV 8.4, Neut % (Auto) 73.6, Lymph % (Auto) 17.4, [place] % (Auto) 6.2, Eos % (Auto) 2.4, Baso % (Auto) 0.5, Neut # (Auto) 4.7, Lymph # (Auto) 1.1, [place] # (Auto) 0.4, Eos # (Auto) 0.2, Baso # (Auto) 0.0 11/06/18 21:55: Sodium 145, Potassium 3.1 L, Chloride 108 H, Carbon Dioxide 27, Anion Gap 13.1, BUN 17, Creatinine 0.83, Estimated Creat Clear 76, Estimated GFR 89, Est GFR ( Amer) 108, Glucose 104, Calcium 8.0 L, Total Bilirubin 0.4, AST 19, ALT 30, Alkaline Phosphatase 177 H, Total Protein 6.7, Albumin 3.1 L, Globulin 3.6 H, Albumin/Globulin Ratio 0.9 L 11/06/18 21:55: Lactate 0.8 Result diagrams: 11/06/18 21:55 11/06/18 21:55 Orders (Tests/Meds): ORDERS Category Date Time Status CT cervical spine wo con Stat Cat Scan 11/06/18 21:[address] head/brain wo con Stat Cat Scan 11/06/18 21:51 Ordered XR chest AP Stat Exams 11/06/18 21:51 Ordered XR hip LT 2-3V w/pelvis Stat Exams 11/06/18 21:51 Ordered XR pelvis 1-2V Stat Exams 11/06/18 21:51 Ordered Blood Culture Stat Micro 11/06/18 21:55 Received - Radiology Data #1 Image(s): Chest, Pelvis, Hip Image Reviewed: Yes I reviewed the patient's radiology image Preliminary Findings: Abnormal (hip fx) - CT Data CT Scan: Head, C-Spine Time Received: 23:[address] Reviewed: Yes: I have viewed the radiologist's interpretation Preliminary Findings: Normal/NAD - Physician Consults Physician Consulted: dong Reason -: Admission Fall HPI - General Chief Complaint: Fall Stated Complaint: fall Time Seen by Provider: 11/06/18 22:00 Mode of Arrival: EMS Source of Information: Patient, Relative, EMS, Medical Record Limitations: Physical Limitations Description of Symptoms (Recalled from ER Triage Doc. by RN): Sent over from [facility] for a witnessed fall from a wheelchair. NH reported left sided hip pain, left leg does look slightly rotated and shorter. Pt c/o pain with movement from EMS stretcher to ED stretcher. Received 30mg IV Toradol enroute. - History of Present Illness HPI Narrative: fell at [facility] with injury lt hip complaint: fall Onset (ago): hour(s) Fall from: wheelchair Fall witnessed: yes, by bystander Place fall occurred: [facility] Loss of consciousness: none Prolonged down time: no Context: history of frequent falls Location of injury - extremities: Left: thigh Severity: moderate Associated symptoms (after fall): denies - Related Data Home Medications Medication Instructions Recorded Confirmed Atorvastatin Calcium [Atorvastatin 80 mg PO DAILY 03/03/18 11/06/18 80mg Tab] Clopidogrel Bisulfate [Plavix 75mg 75 mg PO DAILY 03/03/18 11/06/18 Tab] Ferrous Sulfate 325 mg PO BID 03/03/18 11/06/18 Finasteride [Proscar 5mg Tablet] 5 mg PO DAILY 03/03/18 11/06/18 Nitroglycerin 0.4 mg SL NEEDED PRN 03/03/18 11/06/18 Pantoprazole Sodium [Protonix 40mg 40 mg PO BID 03/03/18 11/06/18 tablet] Escitalopram Oxalate [Lexapro] 10 mg PO DAILY 08/05/18 11/06/18 Saccharomyces Boulardii [Probiotic] 250 mg PO DAILY 08/05/18 11/06/18 Lisinopril [Lisinopril 10mg Tab] 10 mg PO DAILY 08/06/18 11/06/18 Calcium Carbonate/Vitamin D3 1 each PO DAILY 11/06/18 11/06/18 [Oyster Shell+D 250 mg Tablet] Donepezil HCl [Aricept 10mg 10 mg PO HS 11/06/18 11/06/18 tablet] Fluticasone/Vilanterol [Breo 1 inh IH HS 11/06/18 11/06/18 Ellipta 100-25 Mcg INH] Mirtazapine 1 tab PO HS 11/06/18 11/06/18 Quetiapine Fumarate 25 mg PO BID 11/06/18 11/06/18 Previous Rx's Medication Instructions Recorded Acetaminophen [Acetaminophen 325mg 650 mg PO Q4HP PRN tab 05/23/18 tab] Allergies Allergy/AdvReac Type Severity Reaction Status Date / Time Sulfa (Sulfonamide Allergy Unknown Verified 11/06/18 21:53 Antibiotics) [SULFA (SULFONAMIDE ANTIBIOTICS)] [facility] History - Hepatitis A Screen Drug use history?: No High risk sexual behaviors?: No History of sexually transmitted infection?: No Currently employed?: No Childcare worker?: No Do you have indoor plumbing?: Yes Do you have electricity?: Yes Attestation statement:: This patient has been screened for Hepatitis A risk factors. I have reviewed the patient's past medical history: Yes Medical History: Reports:: Aneurysm, BPH, Chronic Obstructive Pulmonary Disease (COPD), Coronary Artery Disease, Dementia, Hyperlipidemia, Hypertension, Kidney Stones, Peripheral Vascular Disease Denies:: Cancer, Diabetes Mellitus Type 1, Diabetes Mellitus Type 2, Internal Pacemaker, MRSA Other Medical History: Reports: Anemia Other Surgeries: Yes: No Previous Surgery, Coronary Stent, Other (kidney stones). 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 ROS Obtained: Yes All systems reviewed & no additional complaints - Constitutional Constitutional: Denies fever(s) - Eyes Eyes: Denies change in vision - ENT Ears, Nose, Mouth, and Throat: Denies sore throat - Cardiovascular Cardiovascular: Denies chest pain - Respiratory Respiratory: No cough - Gastrointestinal Gastrointestingal: Denies: abdominal pain - Genitourinary Male Genitourinary: Denies hematuria - Musculoskeletal Musculoskeletal: Reports as per HPI, Reports joint pain, Denies neck pain - Integumentary/Breasts Skin/Breast: Denies rash - Neurologic Neurologic: Denies convulsions, Denies headache(s) Physical Exam - General General appearance: alert - Head Head exam: normocephalic - Eye Eye exam: Present: PERRL, EOMI - ENT ENT exam: Present: mucous membranes dry - Neck Neck exam: Present: trachea midline - Respiratory Respiratory exam: Absent: respiratory distress - Cardiovascular Cardiovascular exam: Present: regular rate, systolic murmur - Abdominal Exam Abdominal exam: Present: soft - Expanded Lower Extremity Exam Left Hip/Pelvis exam: Present: tenderness, pelvis stable, external rotation, shortening of leg - Neurological Exam Neurological exam: Present: alert, oriented X3, CN II-XII intact - Psychiatric Psychiatric exam: Present: normal affect - Skin Skin exam: Absent: rash
[2018-11-07 05:35] LABS: White Blood Count 7.4 K/mm3 (4.8-10.8)
[2018-11-07 05:36] LABS: Basophils % 0.3 % (0.1-2.0); Hematocrit 35.7 % (42.0-52.0); Hemoglobin 11.8 g/dL (14.1-18.0); Lymphocytes # 0.8 K/mm3 (0.7-4.5); Lymphocytes % 11.2 % (10-50); Mean Corpuscular HGB Conc 32.9 g/dL (31.8-35.4); Mean Corpuscular Hemoglobin 31.1 pg (27.0-31.2); Mean Corpuscular Volume 94.6 fl (80-94); Mean Platelet Volume 10.2 fl (7.4-10.4); Monocytes # 0.5 K/mm3 (0.1-1.0); Monocytes % 6.4 % (1.7-9.3); Neutrophils % 80.1 % (37.0-80.0); Platelet Count 122 K/mm3 (142-424); Red Blood Count 3.78 M/mm3 (4.60-6.20); Red Cell Distribution Width 14.3 % (11.5-17.5)
[2018-11-07 05:37] LABS: Eosinophils # 0.1 K/mm3 (0.0-0.4)
[2018-11-07 05:49] LABS: Anion Gap 12.1 mEq/L (5-15); Calcium 7.9 mg/dL (8.5-10.1); Potassium 3.1 mmoL/L (3.5-5.1)
--- NOTE | 2018-11-07 08:03 | Pharmacy Consult Notes ---
[facility] Pharmacy VTE Monitoring - Patient Demographics Admission date: 11/07/18 Report Date: 11/07/18 Time: 08:03 Allergies/Adverse Reactions: Patient Allergies Sulfa (Sulfonamide Antibiotics) [SULFA (SULFONAMIDE ANTIBIOTICS)] Allergy (Unknown, Verified 11/06/18 21:53) Height: 1.8 m Weight: 73.198 kg Patient Problems: Current Active Problems (Updated 11/06/18 @ 23:17 by Mika Borrego MD) Hypokalemia (Acute) Hip fracture, intertrochanteric (Acute) - VTE Risk Labs: VTE Related Lab Results Hgb 11.8 g/dL (14.1-18.0) L 11/07/18 05:25 Hct 35.7 % (42.0-52.0) L 11/07/18 05:25 Plt Count 122 K/mm3 (142-424) L 11/07/18 05:25 BUN 16 mg/dL (7-18) 11/07/18 05:25 Creatinine 0.77 mg/dL (0.70-1.30) 11/07/18 05:25 Estimated Creat Clear 61 mL/min (50-200) 11/07/18 05:25 Was VTE Risk Assessment Performed: Yes VTE Score: 9 VTE Risk Level: Moderate Risk Clinical Trial Participant: No - Prophylaxis Types of VTE Prophylaxis: TEDS Knee High
--- NOTE | 2018-11-07 08:07 | History & Physical Report ---
*Admission Date: 11/06/18 *Chief complaint: fall and hip pain *History of present illness: Mr Granger is an 78yo M resident at [facility] with history of dementia, heart disease, hypertension who presented to the ER after falling from his wheelchair and experiencing hip pain. Noted to have non-displaced intertrochanteric left hip fracture. Ortho consulted. Mr. Granger is alert but only oriented x 1 this morning, thus his recall of events is unreliable. [facility] History I have reviewed the patient's past medical history: Yes Medical History: Reports:: Aneurysm, BPH, Chronic Obstructive Pulmonary Disease (COPD), Coronary Artery Disease, Dementia, Hyperlipidemia, Hypertension, Kidney Stones, Peripheral Vascular Disease Denies:: Cancer, Diabetes Mellitus Type 1, Diabetes Mellitus Type 2, Internal Pacemaker, MRSA *Have you ever received a pneumonia vaccine?: Yes *Have you received a flu vaccine this season?: Yes Other Medical History: Reports: Anemia Laterality Cases: Right: Arthroscopy Hip, Arthroscopy Shoulder Other Surgeries: Yes: No Previous Surgery, Coronary Stent, Other (kidney stones). No: Pacemaker Amputation: No Fractures: Yes (right humerus and ulna) - *Social History Smoking Status: Current every day smoker Tobacco Type: cigarettes # Packs/Day (cigarettes): 1 #Yrs smoked (if former smoker): 70 Alcohol Intake: never Alcohol Intake Frequency:: other Substance Use Type: denies use *Occupational Status:: retired, disabled Housing: longterm Household Members: other *Travel in the last 8 weeks: None - Psychiatric History Expresses thoughts of harming self/others: None Suicide Plan Description: No Plan Family Hx:: Unable to obtain Review of Systems - Review of Systems Review of systems:: unable to obtain - *Neurologic Denies seizure-like activity, Denies headache(s) Meds Home Medications Medication Instructions Recorded Confirmed Type Atorvastatin Calcium [Atorvastatin 80 mg PO DAILY 03/03/18 11/06/18 History 80mg Tab] Clopidogrel Bisulfate [Plavix 75mg 75 mg PO DAILY 03/03/18 11/06/18 History Tab] Ferrous Sulfate 325 mg PO BID 03/03/18 11/06/18 History Finasteride [Proscar 5mg Tablet] 5 mg PO DAILY 03/03/18 11/06/18 History Nitroglycerin 0.4 mg SL NEEDED PRN 03/03/18 11/06/18 History Pantoprazole Sodium [Protonix 40mg 40 mg PO BID 03/03/18 11/06/18 History tablet] Acetaminophen [Acetaminophen 325mg 650 mg PO Q4HP PRN tab 05/23/18 11/06/18 Rx tab] Escitalopram Oxalate [Lexapro] 10 mg PO DAILY 08/05/18 11/06/18 History Saccharomyces Boulardii [Probiotic] 250 mg PO DAILY 08/05/18 11/06/18 History Lisinopril [Lisinopril 10mg Tab] 10 mg PO DAILY 08/06/18 11/06/18 History Calcium Carbonate/Vitamin D3 1 each PO DAILY 11/06/18 11/06/18 History [Oyster Shell+D 250 mg Tablet] Donepezil HCl [Aricept 10mg 10 mg PO HS 11/06/18 11/06/18 History tablet] Fluticasone/Vilanterol [Breo 1 inh IH HS 11/06/18 11/06/18 History Ellipta 100-25 Mcg INH] Mirtazapine 1 tab PO HS 11/06/18 11/06/18 History Quetiapine Fumarate 25 mg PO BID 11/06/18 11/06/18 History Allergies Allergy/AdvReac Type Severity Reaction Status Date / Time Sulfa (Sulfonamide Allergy Unknown Verified 11/06/18 21:53 Antibiotics) [SULFA (SULFONAMIDE ANTIBIOTICS)] Exam Vital signs and Labs for Last 24 Hours: Temp Pulse Resp BP Pulse Ox 97.8 F 77 17 190/85 H 91 L 11/07/18 04:00 11/07/18 04:00 11/07/18 04:00 11/07/18 04:00 11/07/18 04:00 Laboratory Results - last 24 hr 11/06/18 21:55: WBC 6.3, RBC 3.73 L, Hgb 11.5 L, Hct 35.5 L, MCV 95.3 H, MCH 30.9, MCHC 32.5, RDW 14.3, Plt Count 152, MPV 8.4, Neut % (Auto) 73.6, Lymph % (Auto) 17.4, [place] % (Auto) 6.2, Eos % (Auto) 2.4, Baso % (Auto) 0.5, Neut # (Auto) 4.7, Lymph # (Auto) 1.1, [place] # (Auto) 0.4, Eos # (Auto) 0.2, Baso # (Auto) 0.0 11/06/18 21:55: Sodium 145, Potassium 3.1 L, Chloride 108 H, Carbon Dioxide 27, Anion Gap 13.1, BUN 17, Creatinine 0.83, Estimated Creat Clear 76, Estimated GFR 89, Est GFR ( Amer) 108, Glucose 104, Calcium 8.0 L, Total Bilirubin 0.4, AST 19, ALT 30, Alkaline Phosphatase 177 H, Total Protein 6.7, Albumin 3.1 L, Globulin 3.6 H, Albumin/Globulin Ratio 0.9 L 11/06/18 21:55: Lactate 0.8 11/07/18 02:30: Troponin I < 0.02 11/07/18 05:25: Troponin I 0.02 11/07/18 05:25: WBC 7.4, RBC 3.78 L, Hgb 11.8 L, Hct 35.7 L, MCV 94.6 H, MCH 31.1, MCHC 32.9, RDW 14.3, Plt Count 122 L, MPV 10.2, Neut % (Auto) 80.1 H, Lymph % (Auto) 11.2, [place] % (Auto) 6.4, Eos % (Auto) 1.0, Baso % (Auto) 0.3, Neut # (Auto) 6.0, Lymph # (Auto) 0.8, [place] # (Auto) 0.5, Eos # (Auto) 0.1, Baso # (Auto) 0.0 11/07/18 05:25: Sodium 145, Potassium 3.1 L, Chloride 109 H, Carbon Dioxide 27, Anion Gap 12.1, BUN 16, Creatinine 0.77, Estimated Creat Clear 61, Estimated GFR 97, Est GFR ( Amer) 118, Glucose 99, Calcium 7.9 L, Magnesium 1.6 I & O for Last 24 hours: Intake & Output 11/04/18 11/05/18 11/06/18 11/07/18 23:59 23:59 23:59 23:59 Intake Total 234 / 234 Balance 234 / 234 Weight 73.198 kg Assessment and Plan (1) Hip fracture, intertrochanteric Current visit: Yes Status: Acute Qualifiers: Encounter type: initial encounter Fracture type: closed Fracture alignment: displaced Laterality: left Qualified Code(s): S72.142A - Displaced intertrochanteric fracture of left femur, initial encounter for closed fracture Category: Medical Code(s): S72.143A - Displaced intertrochanteric fracture of unspecified femur, initial encounter for closed fracture RCRI - 78 yo M with no DM, CKD. METs unquantifiable. Patient is an elevated risk patient for a low risk procedure. Recommend baseline EKG prior to surgery. Otherwise patient optimized for surgical correction of intertrochanteric frac ture. We will plan for resumption of Plavix and initiation of aspirin for DVT prophylaxis after surgery. (2) Hypokalemia Current visit: Yes Status: Acute Category: Medical Code(s): E87.6 - Hypokalemia Present on admission. Added potassium to maintenance fluids. Will slowly correct. (3) Anemia, chronic disease Current visit: No Status: Chronic Category: Medical Code(s): D63.8 - Anemia in other chronic diseases classified elsewhere (4) BPH (benign prostatic hyperplasia) Current visit: No Status: Chronic Qualifiers: Lower urinary tract symptom presence: unspecified whether lower urinary tract symptoms present Qualified Code(s): N40.0 - Benign prostatic hyperplasia without lower urinary tract symptoms Category: Medical Code(s): N40.0 - Benign prostatic hyperplasia without lower urinary tract symptoms (5) Dementia Current visit: No Status: Chronic Qualifiers: Dementia type: Alzheimer's disease Alzheimer's disease onset: late-onset Dementia behavioral disturbance: with behavioral disturbance Qualified Code(s): G30.1 - Alzheimer's disease with late onset; F02.81 - Dementia in other diseases classified elsewhere with behavioral disturbance Category: Medical Code(s): F03.90 - Unspecified dementia without behavioral disturbance Complicates all aspects of care. (6) Hypertension Current visit: No Status: Chronic Qualifiers: Hypertension type: essential hypertension Qualified Code(s): I10 - Es sential (primary) hypertension Category: Medical Code(s): I10 - Essential (primary) hypertension Only on lisinopril in the outpatient setting. Will dose as needed enalapril if hypertensive urgency exists. Otherwise hold in the perioperative setting. (7) Physical debility Current visit: No Status: Chronic Category: Medical Code(s): R53.81 - Other malaise - Assessment and plan all Dx Assessment and Plan for all problems:: Emergent surgical need for correction of intertrochanteric fracture. Orthopedics consulted, appreciate recommendations. Anticipate going to the OR today for fixation. Resume regular diet after surgical repair. Continues to require inpatient management.
--- NOTE | 2018-11-07 11:33 | Consult Report ---
*Admission Date: 11/06/18 *Chief complaint: L hip pain *History of present illness: 78yo M admitted overnight [facility]. He attempted to stand from his wheelchair and fell onto the left side; he was unable to stand. XR revealed a hip fracture. He is a known patient to me; I've treated him in the past 6 months for a R proximal humerus fracture and R distal ulna fracture. He is somewhat disoriented at the moment, but has days where he is mentally clear. Complains of L hip pain, no numbness or tingling in the foot. 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 He takes plavix, last dose was yesterday. Review of Systems - Review of Systems Review of systems:: pertinent systems reviewed and negative unless documented below - *Neurologic Denies seizure-like activity, Denies headache(s) [facility] History I have reviewed the patient's past medical history: Yes Medical History: Reports:: Aneurysm, BPH, Chronic Obstructive Pulmonary Disease (COPD), Coronary Artery Disease, Dementia, Hyperlipidemia, Hypertension, Kidney Stones, Peripheral Vascular Disease Denies:: Cancer, Diabetes Mellitus Type 1, Diabetes Mellitus Type 2, Internal Pacemaker, MRSA *Have you ever received a pneumonia vaccine?: Yes *Have you received a flu vaccine this season?: Yes Other Medical History: Reports: Anemia Laterality Cases: Right: Arthroscopy Hip, Arthroscopy Shoulder Other Surgeries: Yes: No Previous Surgery, Coronary Stent, Other (kidney stones). No: Pacemaker Amputation: No Fractures: Yes (right humerus and ulna) - *Social History Smoking Status: Current every day smoker Tobacco Type: cigarettes # Packs/Day (cigarettes): 1 #Yrs smoked (if former smoker): 70 Alcohol Intake: never Alcohol Intake Frequency:: other Substance Use Type: denies use *Occupational Status:: retired, disabled Housing: [facility] Household Members: other *Travel in the last 8 weeks: None - Psychiatric History Expresses thoughts of harming self/others: None Suicide Plan Description: No Plan Family Hx:: Unable to obtain Meds Home Medications Medication Instructions Recorded Confirmed Type Atorvastatin Calcium [Atorvastatin 80 mg PO DAILY 03/03/18 11/06/18 History 80mg Tab] Clopidogrel Bisulfate [Plavix 75mg 75 mg PO DAILY 03/03/18 11/06/18 History Tab] Ferrous Sulfate 325 mg PO BID 03/03/18 11/06/18 History Finasteride [Proscar 5mg Tablet] 5 mg PO DAILY 03/03/18 11/06/18 History Nitroglycerin 0.4 mg SL NEEDED PRN 03/03/18 11/06/18 History Pantoprazole Sodium [Protonix 40mg 40 mg PO BID 03/03/18 11/06/18 History tablet] Acetaminophen [Acetaminophen 325mg 650 mg PO Q4HP PRN tab 05/23/18 11/06/18 Rx tab] Escitalopram Oxalate [Lexapro] 10 mg PO DAILY 08/05/18 11/06/18 History Saccharomyces Boulardii [Probiotic] 250 mg PO DAILY 08/05/18 11/06/18 History Lisinopril [Lisinopril 10mg Tab] 10 mg PO DAILY 08/06/18 11/06/18 History Calcium Carbonate/Vitamin D3 1 each PO DAILY 11/06/18 11/06/18 History [Oyster Shell+D 250 mg Tablet] Donepezil HCl [Aricept 10mg 10 mg PO HS 11/06/18 11/06/18 History tablet] Fluticasone/Vilanterol [Breo 1 inh IH HS 11/06/18 11/06/18 History Ellipta 100-25 Mcg INH] Mirtazapine 1 tab PO HS 11/06/18 11/06/18 History Quetiapine Fumarate 25 mg PO BID 11/06/18 11/06/18 History Allergies Allergy/AdvReac Type Severity Reaction Status Date / Time Sulfa (Sulfonamide Allergy Unknown Verified 11/06/18 21:53 Antibiotics) [SULFA (SULFONAMIDE ANTIBIOTICS)] Exam Vital signs and Labs for Last 24 Hours: Temp Pulse Resp BP Pulse Ox 99.3 F 84 19 141/76 H 92 L 11/07/18 08:00 11/07/18 08:00 11/07/18 08:00 11/07/18 08:00 11/07/18 08:00 Laboratory Results - last 24 hr 11/06/18 21:55: WBC 6.3, RBC 3.73 L, Hgb 11.5 L, Hct 35.5 L, MCV 95.3 H, MCH 30.9, MCHC 32.5, RDW 14.3, Plt Count 152, MPV 8.4, Neut % (Auto) 73.6, Lymph % (Auto) 17.4, [place] % (Auto) 6.2, Eos % (Auto) 2.4, Baso % (Auto) 0.5, Neut # (Auto) 4.7, Lymph # (Auto) 1.1, [place] # (Auto) 0.4, Eos # (Auto) 0.2, Baso # (Auto) 0.0 11/06/18 21:55: Sodium 145, Potassium 3.1 L, Chloride 108 H, Carbon Dioxide 27, Anion Gap 13.1, BUN 17, Creatinine 0.83, Estimated Creat Clear 76, Estimated GFR 89, Est GFR ( Amer) 108, Glucose 104, Calcium 8.0 L, Total Bilirubin 0.4, AST 19, ALT 30, Alkaline Phosphatase 177 H, Total Protein 6.7, Albumin 3.1 L, Globulin 3.6 H, Albumin/Globulin Ratio 0.9 L 11/06/18 21:55: Lactate 0.8 11/07/18 02:30: Troponin I < 0.02 11/07/18 05:25: Troponin I 0.02 11/07/18 05:25: WBC 7.4, RBC 3.78 L, Hgb 11.8 L, Hct 35.7 L, MCV 94.6 H, MCH 31.1, MCHC 32.9, RDW 14.3, Plt Count 122 L, MPV 10.2, Neut % (Auto) 80.1 H, Lymph % (Auto) 11.2, [place] % (Auto) 6.4, Eos % (Auto) 1.0, Baso % (Auto) 0.3, Neut # (Auto) 6.0, Lymph # (Auto) 0.8, [place] # (Auto) 0.5, Eos # (Auto) 0.1, Baso # (Auto) 0.0 11/07/18 05:25: Sodium 145, Potassium 3.1 L, Chloride 109 H, Carbon Dioxide 27, Anion Gap 12.1, BUN 16, Creatinine 0.77, Estimated Creat Clear 61, Estimated GFR 97, Est GFR ( Amer) 118, Glucose 99, Calcium 7.9 L, Magnesium 1.6 I & O for Last 24 hours: Intake & Output 11/04/18 11/05/18 11/06/18 11/07/18 11:59 11:59 11:59 11:59 Intake Total 234 / 234 Balance 234 / 234 Weight 161 lb 6 oz - *Routine HEENT Exam Head: Present: normocephalic, atraumatic Eye: Present: EOMI ENT: Present: mucous membranes moist - *Routine Respiratory Exam Present: CTA bilaterally. Absent: accessory muscle use, wheezes, crackles - *Routine Cardiovascular Exam Present: RRR - *Routine Abdominal Exam Present: soft. Absent: tenderness - *Routine Extremities Exam Comments: LLE shortened and externally rotated +DF/PF/EHL LLE weakly palpable pedal pulses LLE, foot warm/pink L calf soft, non-tender SILT LLE distally significant pain L hip with palpation/log roll Results - Labs Result Diagrams: 11/07/18 05:25 11/07/18 05:25 Labs: Abnormal lab results 11/06/18 11/06/18 11/07/18 Range/Units 21:55 21:55 05:25 RBC 3.73 L 3.78 L (4.60-6.20) M/mm3 Hgb 11.5 L 11.8 L (14.1-18.0) g/dL Hct 35.5 L 35.7 L (42.0-52.0) % MCV 95.3 H 94.6 H (80-94) fl Plt Count 122 L (142-424) K/mm3 Neut % (Auto) 80.1 H (37.0-80.0) % Potassium 3.1 L (3.5-5.1) mmoL/L Chloride 108 H (98-107) mmol/L Calcium 8.0 L (8.5-10.1) mg/dL Alkaline Phosphatase 177 H (46-116) U/L Albumin 3.1 L (3.4-5.0) gm/dL Globulin 3.6 H (1.3-3.2) gm/dl Albumin/Globulin Ratio 0.9 L (1.1-1.8) 11/07/18 Range/Units 05:25 RBC (4.60-6.20) M/mm3 Hgb (14.1-18.0) g/dL Hct (42.0-52.0) % MCV (80-94) fl Plt Count (142-424) K/mm3 Neut % (Auto) (37.0-80.0) % Potassium 3.1 L (3.5-5.1) mmoL/L Chloride 109 H (98-107) mmol/L Calcium 7.9 L (8.5-10.1) mg/dL Alkaline Phosphatase (46-116) U/L Albumin (3.4-5.0) gm/dL Globulin (1.3-3.2) gm/dl Albumin/Globulin Ratio (1.1-1.8) H & H 11/06/18 11/07/18 Range/Units 21:55 05:25 Hgb 11.5 L 11.8 L (14.1-18.0) g/dL Hct 35.5 L 35.7 L (42.0-52.0) % All other labs normal. - Diagnostic results Hip x-ray: image reviewed (L intertrochanteric femur fracture ) Assessment and Plan (1) Hip fracture, intertrochanteric Current visit: Yes Status: Acute Qualifiers: Encounter type: initial encounter Fracture type: closed Fracture alignment: displaced Laterality: left Qualified Code(s): S72.142A - Displaced intertrochanteric fracture of left femur, initial encounter for closed fracture Category: Medical Code(s): S72.143A - Displaced intertrochanteric fracture of unspecified femur, initial encounter for closed fracture (2) Hypokalemia Current visit: Yes Status: Acute Category: Medical Code(s): E87.6 - Hypokalemia (3) Anemia, chronic disease Current visit: No Status: Chronic Category: Medical Code(s): D63.8 - Anemia in other chronic diseases classified elsewhere (4) BPH (benign prostatic hyperplasia) Current visit: No Status: Chronic Qualifiers: Lower urinary tract symptom presence: unspecified whether lower urinary tract symptoms present Qualified Code(s): N40.0 - Benign prostatic hyperplasia without lower urinary tract symptoms Category: Medical Code(s): N40.0 - Benign prostatic hyperplasia without lower urinary tract symptoms (5) Dementia Current visit: No Status: Chronic Qualifiers: Dementia type: Alzheimer's disease Alzheimer's disease onset: late-onset Dementia behavioral disturbance: with behavioral disturbance Qualified Code(s): G30.1 - Alzheimer's disease with late onset; F02.81 - Dementia in other diseases classified elsewhere with behavioral disturbance Category: Medical Code(s): F03.90 - Unspecified dementia without behavioral disturbance (6) Hypertension Current visit: No Status: Chronic Qualifiers: Hypertension type: essential hypertension Qualified Code(s): I10 - Es sential (primary) hypertension Category: Medical Code(s): I10 - Essential (primary) hypertension (7) Physical debility Current visit: No Status: Chronic Category: Medical Code(s): R53.81 - Other malaise - Assessment and plan all Dx Assessment and Plan for all problems:: 78yo M with L intertrochanteric femur fracture -- to OR today for IMN L femur; consent obtained from family -- post-op orders to be placed after surgery
--- NOTE | 2018-11-07 16:14 | Progress Note ---
[facility] Anesthesia Checklist - Patient Identification Patient Identification: Arm Band - Structural Data Admitted From: Home Planned Operative Procedure/s: intramedullary nail left femur Consent for Planned Operative Procedure(s) Verified: Yes Verified Documents: Surgical Consent, History and Physical - NPO Status Verified Time NPO: 00:00 - Additional verifications Anesthesia Reactions: No - Airway Assessment C-Spine Mobility Assessed: Yes (mp2) TMJ Mobility Assessed: Yes Dentition: Edentulous - Neurological Assessment Level of Consciousness: Awake, Alert - Anesthesia Plan Anesthesia Risk discussed: Yes Anesthesia Plan: Verified ASA Class: III (e) Anesthesia Type: General [facility] History I have reviewed the patient's past medical history: Yes Medical History: Reports:: Aneurysm, BPH, Chronic Obstructive Pulmonary Disease (COPD), Coronary Artery Disease, Dementia, Hyperlipidemia, Hypertension, Kidney Stones, Peripheral Vascular Disease Denies:: Cancer, Diabetes Mellitus Type 1, Diabetes Mellitus Type 2, Internal Pacemaker, MRSA *Have you ever received a pneumonia vaccine?: Yes *Have you received a flu vaccine this season?: Yes Other Medical History: Reports: Anemia Other Surgeries: Yes: Coronary Stent, Other (kidney stones). No: Pacemaker Amputation: No Fractures: Yes (right humerus and ulna) - *Social History Smoking Status: Current every day smoker Tobacco Type: cigarettes # Packs/Day (cigarettes): 1 #Yrs smoked (if former smoker): 70 Alcohol Intake: never Alcohol Intake Frequency:: other Substance Use Type: denies use *Occupational Status:: retired, disabled Housing: [facility] Household Members: other *Travel in the last 8 weeks: None - Psychiatric History Expresses thoughts of harming self/others: None Suicide Plan Description: No Plan Family Hx:: Unable to obtain
--- NOTE | 2018-11-07 19:19 | Progress Note ---
[facility] Anesthesia Record Part I Intake, IV Amount: 850 Estimated blood loss (mL): 200 Urine output (mL): 200 Blood Products used (#): none Blood Pressure: 129/47 SaO2: 97 Pulse Rate: 77 Respiratory Rate: 18 Temperature: 99.2 F Patient is:: Drowsy, Nasal O2, Stable Stable to PACU at:: 19:12
--- NOTE | 2018-11-07 19:20 | Progress Note ---
[facility] Anesthesia Record Part II Discharge Time: 19:42 Destination: Medical Surgical Department PACU nurse assessment reviewed?: Yes Patient Condition:: Good Anesthesia Complications:: None Swallowing reflex intact?: Yes Cyanosis?: No
[2018-11-07 20:16] LABS: Hematocrit 35.3 % (42.0-52.0); Hemoglobin 11.5 g/dL (14.1-18.0)
[2018-11-08 06:53] LABS: Basophils % 0.3 % (0.1-2.0); Hematocrit 32.2 % (42.0-52.0); Lymphocytes % 11.4 % (10-50); Mean Corpuscular HGB Conc 31.6 g/dL (31.8-35.4); Mean Corpuscular Volume 98.2 fl (80-94); Monocytes # 0.6 K/mm3 (0.1-1.0); Monocytes % 6.7 % (1.7-9.3); Neutrophils # 7.1 K/mm3 (1.8-7.8); Neutrophils % 81.5 % (37.0-80.0); Platelet Count 137 K/mm3 (142-424); Red Blood Count 3.28 M/mm3 (4.60-6.20); Red Cell Distribution Width 14.3 % (11.5-17.5); White Blood Count 8.7 K/mm3 (4.8-10.8)
[2018-11-08 07:12] LABS: Albumin Level 2.6 gm/dL (3.4-5.0); Albumin/Globulin Ratio 0.8 (1.1-1.8); Anion Gap 12.3 mEq/L (5-15); Bilirubin,Total 0.6 mg/dL (0.2-1.0); Calcium 7.5 mg/dL (8.5-10.1); Globulin 3.3 gm/dl (1.3-3.2); Potassium 4.3 mmoL/L (3.5-5.1); Total Protein,Serum 5.9 gm/dL (6.4-8.2)
[2018-11-08 07:16] LABS: Hemoglobin 10.2 g/dL (14.1-18.0)
--- NOTE | 2018-11-08 08:26 | Progress Note ---
Internal Medicine - PN: Aj *Date: 11/08/18 *Time: 08:25 Interval history: Patient slept very well, he reports very minimal pain. Somewhat disoriented. Has been drinking clear liquids this morning. Nurses report no vomiting. Exam Vital signs and Labs for Last 24 Hours: Temp Pulse Resp BP Pulse Ox 98.1 F 79 20 128/64 92 L 11/08/18 04:13 11/08/18 04:13 11/08/18 04:13 11/08/18 04:13 11/08/18 07:59 Laboratory Results - last 24 hr 11/07/18 17:08: Urine Color Yellow, Urine Appearance Clear, Urine pH 6.5, Ur Specific [place] 1.020, Urine Protein Trace, Urine Glucose (UA) Negative, Urine Ketones Negative, Urine Blood Negative, Urine Nitrate Negative, Urine Bilirubin Negative, Urine Urobilinogen 1.0, Ur Leukocyte Esterase 2+ A, Urine WBC 10-20 A, Ur Squamous Epith Cells Occasional, Urine Bacteria Trace 11/07/18 20:09: Hgb 11.5 L, Hct 35.3 L 11/08/18 06:20: WBC 8.7, RBC 3.28 L, Hgb 10.2 L D, Hct 32.2 L, MCV 98.2 H, MCH 31.0, MCHC 31.6 L, RDW 14.3, Plt Count 137 L, MPV 9.0, Neut % (Auto) 81.5 H, Lymph % (Auto) 11.4, [place] % (Auto) 6.7, Eos % (Auto) 0.0 L, Baso % (Auto) 0.3, Neut # (Auto) 7.1, Lymph # (Auto) 1.0, [place] # (Auto) 0.6, Eos # (Auto) 0.0, Baso # (Auto) 0.0 11/08/18 06:20: Sodium 147 H, Potassium 4.3 D, Chloride 113 H, Carbon Dioxide 26, Anion Gap 12.3, BUN 24 H D, Creatinine 0.91, Estimated Creat Clear 62, Estimated GFR 80, Est GFR ( Amer) 97, Glucose 124 H, Calcium 7.5 L, Total Bilirubin 0.6, AST 43 H D, ALT 54 D, Alkaline Phosphatase 172 H, Total Protein 5.9 L, Albumin 2.6 L D, Globulin 3.3 H, Albumin/Globulin Ratio 0.8 L I & O for Last 24 hours: Intake & Output 11/05/18 11/06/18 11/07/18 11/08/18 11:59 11:59 11:59 11:59 Intake Total 234 / 234 2151 / 2151 Output Total 1300 / 1300 Balance 234 / 234 851 / 851 Weight 161 lb 6 oz 165 lb Narrative: Alert, responds to commands. Oropharynx clear. No JVD. Heart rate regular. Anterior lung leal are clear. Abdomen soft and nontender. Connolly catheter in place. Draining clear urine. Legs and sequential compression devices -no distal edema, good pulses. Assessment and Plan (1) Hip fracture, intertrochanteric Current visit: Yes Status: Acute Qualifiers: Encounter type: initial encounter Fracture type: closed Fracture alignment: displaced Laterality: left Qualified Code(s): S72.142A - Displaced intertrochanteric fracture of left femur, initial encounter for closed fracture Category: Medical Code(s): S72.143A - Displaced intertrochanteric fracture of unspecified femur, initial encounter for closed fracture (2) Hypokalemia Current visit: Yes Status: Acute Category: Medical Code(s): E87.6 - Hypokalemia (3) Anemia, chronic disease Current visit: No Status: Chronic Category: Medical Code(s): D63.8 - Anemia in other chronic diseases classified elsewhere (4) BPH (benign prostatic hyperplasia) Current visit: No Status: Chronic Qualifiers: Lower urinary tract symptom presence: unspecified whether lower urinary tract symptoms present Qualified Code(s): N40.0 - Benign prostatic hyperplasia without lower urinary tract symptoms Category: Medical Code(s): N40.0 - Benign prostatic hyperplasia without lower urinary tract symptoms (5) Dementia Current visit: No Status: Chronic Qualifiers: Dementia type: Alzheimer's disease Alzheimer's disease onset: late-onset Dementia behavioral disturbance: with behavioral disturbance Qualified Code(s): G30.1 - Alzheimer's disease with late onset; F02.81 - Dementia in other diseases classified elsewhere with behavioral disturbance Category: Medical Code(s): F03.90 - Unspecified dementia without behavioral disturbance (6) Hypertension Current visit: No Status: Chronic Qualifiers: Hypertension type: essential hypertension Qualified Code(s): I10 - Essential (primary) hypertension Category: Medical Code(s): I10 - Essential (primary) hypertension (7) Physical debility Current visit: No Status: Chronic Category: Medical Code(s): R53.81 - Other malaise - Assessment and plan all Dx Assessment and Plan for all problems:: Plan will be to advance diet to soft mechanical. PT/OT evaluation today. Remove Connolly. Continue supportive care postoperatively.
--- NOTE | 2018-11-08 09:57 | Progress Note ---
Subjective Date: 11/08/18 Time: 09:00 Principal diagnosis: L intertrochanteric femur fx Interval history: The patient did well overnight, pain appears to be well-controlled. He remains disoriented this morning but vitals are stable and he reports little pain in the hip. No fevers or chills, no drainage from the dressings. PN: Obj Ex Vital signs: Temp Pulse Resp BP Pulse Ox 98.5 F 75 16 119/55 L 90 L 11/08/18 08:00 11/08/18 08:00 11/08/18 08:00 11/08/18 08:00 11/08/18 08:00 - Routine Extremities Exam Comments: L hip dressing c/d/i, no drainage +DF/PF/EHL LLE, but following commands somewhat difficult SILT distally LLE L calf soft, non-tender - Urinary Catheter Management Coude Cath placed during this visit: yes Urethral indwelling: Yes Reason for continuing: Decision to DC catheter (will be removed this morning) Insertion date: 11/07/18 Insertion time: 17:08 Progress Note: A&P (1) Hip fracture, intertrochanteric Status: Acute Current Visit: Yes (2) Hypokalemia Status: Acute Current Visit: Yes (3) Anemia, chronic disease Status: Chronic Current Visit: No (4) BPH (benign prostatic hyperplasia) Status: Chronic Current Visit: No (5) Dementia Status: Chronic Current Visit: No (6) Hypertension Status: Chronic Current Visit: No (7) Physical debility Status: Chronic Current Visit: No Assessment and Plan for All Diagnoses:: 78yo M POD 1 s/p IMN L femur for IT fx (short gamma nail) -- WBAT LLE, PT to eval today -- dressing change Tuesday -- ice to L hip PRN -- medical management per Dr. Connors -- dispo planning: return to [facility] when medically appropriate and deemed safe by PCP/PT
--- NOTE | 2018-11-08 21:35 | Operative Note ---
Date of procedure: 11/07/18 Pre-op Diagnosis:: intertrochanteric femur fracture LLE Post-op Diagnosis:: same Procedure performed:: intramedullary nail L femur (short gamma nail) Surgeon:: Yissel Salguero MD Retail Grocer(s):: none [employer] MANAGER:: Julio Pate Anesthesia: GETA Estimated blood loss (mL): 200 Clinical Note:: 78yo M with intertrochanteric femur fracture LLE sustained [facility] of 11/06/2018. I previously treated him for a R proximal humerus and R distal ulna fracture, both of which healed without surgery. He has sustained multiple falls over the past few months and has [facility]. He is on plavix at baseline, last dose was 11/06/2018. He is often confused and not currently oriented to place or time. I discussed the patient's injury with his family, including his son/POA; they agreed to my recommendation of surgical stabi lization, and provided informed consent. He was medically cleared by his PCP. Operative findings:: [place] gamma 3 intramedullary nailing system (antegrade cephalomedullary nail) nail: 11 x 180mm, 130deg lag screw: 10.5 x 110mm distal interlocking screw: 5 x 40mm Operative note:: The patient was identified in preoperative holding and the left hip signed by myself. He was then taken to the operating room where 1g Ancef was infused and general anesthesia induced. Once the patient was asleep, he was transferred to the fracture table, where the left lower extremity was secured in the foot gilbert and the uninjured right leg placed in a well-padded leg gilbert. Using a combination of longitudinal traction, adduction and internal rotation of the left lower extremity, the left hip fracture was reduced under fluoroscopic guidance. Once the hip was reduced, the left hip was prepped and draped in the usual sterile fashion; this was performed with a chlorhexidine prep and a [place] shower curtain drape. Timeout was performed, identifying the correct patient, correct procedure and correct site. The procedure was begun by using a free guidepin held over the hip to localize the level of the greater trochanter. Approximately 3cm proximal to this, a longitudinal incision was made on the lateral aspect of the hip approximately 3- 4cm long. The guidepin was placed over the tip of the greater trochanter and fluoroscopy used to confirm the appropriate starting point. The guidepin was advanced under power into the proximal femur and a reamer was used to perforate the near cortex, creating an entry hole in the tip of the greater trochanter. The decision was made to use a short gamma nail, and an 11 mm nail seemed most appropriate. An 11 mm diameter, 180 mm long, 130 degree gamma nail was advanced through the entry hole and into the proximal femur. (130 degree nail was chosen because it matched the neck/shaft angle of his uninjured right hip.) The nail was advanced until the slot for the lag screw was at the desired height on the femoral neck. Next, a guidepin was threaded from the lateral aspect of the thigh into the aiming arm on the side of the nail and into the femoral neck. It was advanced proximally until the desired tip apex distance was met. The measuring tool was used to determine a size 110 mm lag screw would be appropriate. The screw path was drilled and a 10.5 mm diameter, 110 mm long lag screw was advanced into the femoral neck and head. It appeared to be appropriately positioned on both AP and lateral x-ray. Next, the set screw was placed into the top of the nail and secured in place tightly. To secure the distal nail, the locking screw guide was placed through the side arm and the drill bit used to drill both cortices of the femoral shaft. The screw was measuring around 40 mm long, so it through this hole I placed a 5 mm diameter fully threaded, 40 mm long screw and this was advanced under hand power until firmly seated. This completed the procedure and the side arm was removed from the nail, final x-rays taken with confirmation of good positioning of both AP and lateral x-rays. All incisions were irrigated copiously with sterile saline and use bacitracin, and the wounds closed in a layered fashion. The fascia/IT band were closed with 0 Vicryl, followed by 2-0 Vicryl on the subcutaneous tissue, and jt for the skin. The wounds were dressed with Xeroform, 4 x 4's, ABDs and foam tape. The patient was then transferred back to his cart and taken to PACU in good condition. There were no complications during this case. Tourniquet time (min): 0 Condition: stable Disposition: PACU Specimens:: none Complications:: none
[2018-11-09 07:40] LABS: Calcium 7.4 mg/dL (8.5-10.1)
[2018-11-09 08:14] LABS: Basophils % 0.3 % (0.1-2.0); Eosinophils # 0.1 K/mm3 (0.0-0.4); Eosinophils % 1.7 % (0.1-12.0); Hematocrit 28.3 % (42.0-52.0); Hemoglobin 9.4 g/dL (14.1-18.0); Lymphocytes # 1.5 K/mm3 (0.7-4.5); Lymphocytes % 17.5 % (10-50); Mean Corpuscular HGB Conc 33.1 g/dL (31.8-35.4); Mean Corpuscular Hemoglobin 31.6 pg (27.0-31.2); Mean Corpuscular Volume 95.3 fl (80-94); Mean Platelet Volume 8.9 fl (7.4-10.4); Monocytes # 0.5 K/mm3 (0.1-1.0); Monocytes % 6.5 % (1.7-9.3); Neutrophils # 6.2 K/mm3 (1.8-7.8); Platelet Count 112 K/mm3 (142-424); Red Blood Count 2.97 M/mm3 (4.60-6.20); Red Cell Distribution Width 14.4 % (11.5-17.5); White Blood Count 8.4 K/mm3 (4.8-10.8)
--- NOTE | 2018-11-09 09:25 | Progress Note ---
Internal Medicine - PN: Subj *Date: 11/09/18 *Time: 08:15 Interval history: Patient is sitting up in bed. Appears comfortable. He ate a good portion of his breakfast. Denies cough or chest congestion Exam Vital signs and Labs for Last 24 Hours: Temp Pulse Resp BP Pulse Ox 98.4 F 80 17 90/66 L 90 L 11/09/18 08:00 11/09/18 08:00 11/09/18 08:00 11/09/18 08:00 11/09/18 08:00 Laboratory Results - last 24 hr 11/09/18 05:48: Sodium 145, Potassium 4.0, Chloride 113 H, Carbon Dioxide 26, Anion Gap 10.0, BUN 21 H, Creatinine 0.71 D, Estimated Creat Clear 64, Estimated GFR 107, Est GFR ( Amer) 129 D, Glucose 86 D, Calcium 7.4 L 11/09/18 07:53: WBC 8.4, RBC 2.97 L, Hgb 9.4 L, Hct 28.3 L, MCV 95.3 H, MCH 31.6 H, MCHC 33.1, RDW 14.4, Plt Count 112 L, MPV 8.9, Neut % (Auto) 74.0, Lymph % (Auto) 17.5, [place] % (Auto) 6.5, Eos % (Auto) 1.7, Baso % (Auto) 0.3, Neut # (Auto) 6.2, Lymph # (Auto) 1.5, [place] # (Auto) 0.5, Eos # (Auto) 0.1, Baso # (Auto) 0.0 I & O for Last 24 hours: Intake & Output 11/06/18 11/07/18 11/08/18 11/09/18 11:59 11:59 11:59 11:59 Intake Total 234 / 234 2691 / 2691 2234 / 2234 Output Total 1500 / 1500 1676 / 1676 Balance 234 / 234 1191 / 1191 558 / 558 Weight 161 lb 6 oz 165 lb 170 lb 2 oz Microbiology Reports for the Last 24 Hours: Microbiology 11/06/18 21:55 Blood Blood Culture - Preliminary Gram Positive Cocci 11/07/18 17:08 Urine,Catheterized Urine Culture - Preliminary 11/06/18 21:55 Blood Blood Culture - Preliminary NO GROWTH AFTER 48 HOURS Narrative: Alert and oriented to self only. Rate and rhythm regular. Anterior lung sounds clear. Abdomen soft and nontender. BLE sensation and pulse equal bilaterally. No edema. Assessment and Plan (1) Hip fracture, intertrochanteric Current visit: Yes Status: Acute Qualifiers: Encounter type: initial encounter Fracture type: closed Fracture alignment: displaced Laterality: left Qualified Code(s): S72.142A - Displaced intertrochanteric fracture of left femur, initial encounter for closed fracture Category: Medical Code(s): S72.143A - Displaced intertrochanteric fracture of unspecified femur, initial encounter for closed fracture (2) Hypokalemia Current visit: Yes Status: Acute Category: Medical Code(s): E87.6 - Hypokalemia (3) Anemia, chronic disease Current visit: No Status: Chronic Category: Medical Code(s): D63.8 - Anemia in other chronic diseases classified elsewhere (4) BPH (benign prostatic hyperplasia) Current visit: No Status: Chronic Qualifiers: Lower urinary tract symptom presence: unspecified whether lower urinary tract symptoms present Qualified Code(s): N40.0 - Benign prostatic hyperplasia without lower urinary tract symptoms Category: Medical Code(s): N40.0 - Benign prostatic hyperplasia without lower urinary tract symptoms (5) Dementia Current visit: No Status: Chronic Qualifiers: Dementia type: Alzheimer's disease Alzheimer's disease onset: late-onset Dementia behavioral disturbance: with behavioral disturbance Qualified Code(s): G30.1 - Alzheimer's disease with late onset; F02.81 - Dementia in other diseases classified elsewhere with behavioral disturbance Category: Medical Code(s): F03.90 - Unspecified dementia without behavioral disturbance (6) Hypertension Current visit: No Status: Chronic Qualifiers: Hypertension type: essential hypertension Qualified Code(s): I10 - Essential (primary) hypertension Category: Medical Code(s): I10 - Essential (primary) hypertension (7) Physical debility Current visit: No Status: Chronic Category: Medical Code(s): R53.81 - Other malaise - Assessment and plan all Dx Assessment and Plan for all problems:: OVerall he is doing well. Ok to discharge back to [facility] pending insurance approval
--- NOTE | 2018-11-09 16:11 | Progress Note ---
Subjective Date: 11/09/18 Time: 09:00 Principal diagnosis: L intertrochanteric femur fx Interval history: Patient seen this morning. At that time he was confused and had torn his IV tubing so that his gown was covered in blood. He pulled out 2 IVs overnight. Otherwise he has been medically stable, just intermittently disoriented. PN: Obj Ex Vital signs: Temp Pulse Resp BP Pulse Ox 98.5 F 82 18 100/72 L 93 L 11/09/18 11:18 11/09/18 11:18 11/09/18 11:18 11/09/18 11:18 11/09/18 11:18 - Routine Extremities Exam Comments: L hip dressing c/d/i, no drainage +DF/PF/EHL LLE SILT distally LLE L calf soft, non-tender palpable pedal pulses (weak; baseline) LLE; foot warm/pink - Urinary Catheter Management Coude Cath placed during this visit: yes Urethral indwelling: Yes Reason for continuing: Not indwelling catheter Insertion date: 11/07/18 Insertion time: 17:08 Progress Note: A&P (1) Hip fracture, intertrochanteric Status: Acute Current Visit: Yes (2) Hypokalemia Status: Acute Current Visit: Yes (3) Anemia, chronic disease Status: Chronic Current Visit: No (4) BPH (benign prostatic hyperplasia) Status: Chronic Current Visit: No (5) Dementia Status: Chronic Current Visit: No (6) Hypertension Status: Chronic Current Visit: No (7) Physical debility Status: Chronic Current Visit: No Assessment and Plan for All Diagnoses:: 78yo M POD 2 s/p IMN L femur for IT fx -- WBAT LLE, continue PT/OT -- dressing change tomorrow -- d/c back to SNF once deemed medically stable and accepted for return
--- NOTE | 2018-11-09 23:11 | Discharge Summary ---
General - General Admission date:: 11/06/18 Discharge date: 11/10/18 HPI HPI: Mr Granger is an 78yo M resident at [facility] with history of dementia, heart disease, hypertension who presented to the ER after falling from his wheelchair and experiencing hip pain. Noted to have non-displaced intertrochanteric left hip fracture. Ortho consulted. Mr. Granger is alert but only oriented x 1 this morning, thus his recall of events is unreliable. Hospital Course Hospital Course: Mr. Garcia was admitted for a fall and left hip intertrochanteric fracture. Was surgically fixed by orthopedics. Tolerated procedure well. Has continued to do well while admitted remaining hemodynamically stable, afebrile, tolerating p.o. intake. Initiated on aspirin 325 mg daily for DVT prophylaxis in the setting of already being on Plavix. Stable for [facility] back [facility] for physical therapy and rehab. Resumed all other home medications. Objective Vital signs: Temp Pulse Resp BP Pulse Ox 98.5 F 79 18 147/70 H 94 L 11/09/18 19:41 11/09/18 19:41 11/09/18 20:00 11/09/18 19:41 11/09/18 20:00 Narrative: Alert and oriented to self only Rate and rhythm regular Anterior lung sounds clear Abdomen soft and nontender BLE sensation and pulse equal bilaterally No edema, equal leg length. Surgical wound clean dry and intact Results Labs on day of discharge: Labs from last 24 hours 11/09/18 11/09/18 07:53 05:48 WBC 8.4 RBC 2.97 L Hgb 9.4 L Hct 28.3 L MCV 95.3 H MCH 31.6 H MCHC 33.1 RDW 14.4 Plt Count 112 L MPV 8.9 Neut % (Auto) 74.0 Lymph % (Auto) 17.5 [place] % (Auto) 6.5 Eos % (Auto) 1.7 Baso % (Auto) 0.3 Neut # (Auto) 6.2 Lymph # (Auto) 1.5 [place] # (Auto) 0.5 Eos # (Auto) 0.1 Baso # (Auto) 0.0 Sodium 145 Potassium 4.0 Chloride 113 H Carbon Dioxide 26 Anion Gap 10.0 BUN 21 H Creatinine 0.71 D Estimated Creat Clear 64 Estimated GFR 107 Est GFR ( Amer) 129 D Glucose 86 D Calcium 7.4 L Preliminary micro results at discharge 11/06/18 21:55 Blood Culture - Preliminary Blood Gram Positive Cocci 11/07/18 17:08 Urine Culture - Preliminary Urine,Catheterized 11/06/18 21:55 Blood Culture - Preliminary Blood NO GROWTH AFTER 48 HOURS DS: Diagnosis - Discharge Diagnosis (1) Hip fracture, intertrochanteric Status: Acute (2) Hypokalemia Status: Acute (3) Anemia, chronic disease Status: Chronic (4) BPH (benign prostatic hyperplasia) Status: Chronic (5) Dementia Status: Chronic (6) Hypertension Status: Chronic (7) Physical debility Status: Chronic Discharge Plan - Patient Discharge Instructions ACTIVITY: Ambulate as tolerated DIET: continue same diet Patient Instructions: Hip Fracture, DI for Hip Fracture, DI for Hypokalemia, DI for Surgical Site Infection, Surgical Site Infection, Hypokalemia - Follow up Plan Disposition: er Intermediate Care [facility] Home Medications: Home Medications Medication Instructions Recorded Confirmed Type Atorvastatin Calcium [Atorvastatin 80 mg PO DAILY 03/03/18 11/06/18 History 80mg Tab] Clopidogrel Bisulfate [Plavix 75mg 75 mg PO DAILY 03/03/18 11/06/18 History Tab] Ferrous Sulfate 325 mg PO BID 03/03/18 11/06/18 History Finasteride [Proscar 5mg Tablet] 5 mg PO DAILY 03/03/18 11/06/18 History Nitroglycerin 0.4 mg SL NEEDED PRN 03/03/18 11/06/18 History Pantoprazole Sodium [Protonix 40mg 40 mg PO BID 03/03/18 11/06/18 History tablet] Acetaminophen [Acetaminophen 325mg 650 mg PO Q4HP PRN tab 05/23/18 11/06/18 Rx tab] Escitalopram Oxalate [Lexapro] 10 mg PO DAILY 08/05/18 11/06/18 History Saccharomyces Boulardii [Probiotic] 250 mg PO DAILY 08/05/18 11/06/18 History Lisinopril [Lisinopril 10mg Tab] 10 mg PO DAILY 08/06/18 11/06/18 History Calcium Carbonate/Vitamin D3 1 each PO DAILY 11/06/18 11/06/18 History [Oyster Shell+D 250 mg Tablet] Donepezil HCl [Aricept 10mg 10 mg PO HS 11/06/18 11/06/18 History tablet] Fluticasone/Vilanterol [Breo 1 inh IH HS 11/06/18 11/06/18 History Ellipta 100-25 Mcg INH] Mirtazapine 1 tab PO HS 11/06/18 11/06/18 History Quetiapine Fumarate 25 mg PO BID 11/06/18 11/06/18 History Aspirin [Aspirin 325mg Tab] 325 mg PO DAILY 45 Days #45 tablet 11/10/18 Rx Prescriptions/Medication Reconciliation: New Acetaminophen [Acetaminophen 325mg tab] 650 mg PO Q6HP PRN tablet PRN Reason: Mild To Moderate Pain Continued Pantoprazole Sodium [Protonix 40mg tablet] 40 mg PO BID Finasteride [Proscar 5mg Tablet] 5 mg PO DAILY Ferrous Sulfate 325 mg PO BID Atorvastatin Calcium [Atorvastatin 80mg Tab] 80 mg PO DAILY Nitroglycerin 0.4 mg SL NEEDED PRN PRN Reason: Chest Pain Acetaminophen [Acetaminophen 325mg tab] 650 mg PO Q4HP PRN tab PRN Reason: As Needed For Fever Or Pain Saccharomyces Boulardii [Probiotic] 250 mg PO DAILY Escitalopram Oxalate [Lexapro] 10 mg PO DAILY Calcium Carbonate/Vitamin D3 [Oyster Shell+D 250 mg Tablet] 1 each PO DAILY Fluticasone/Vilanterol [Breo Ellipta 100-25 Mcg INH] 1 inh IH HS Donepezil HCl [Aricept 10mg tablet] 10 mg PO HS Clopidogrel Bisulfate [Plavix 75mg Tab] 75 mg PO DAILY Lisinopril [Lisinopril 10mg Tab] 10 mg PO DAILY Mirtazapine 1 tab PO HS Quetiapine Fumarate 25 mg PO BID
--- NOTE | 2018-11-10 14:48 | Progress Note ---
Subjective Date: 11/10/18 Time: 11:00 Principal diagnosis: L intertrochanteric femur fx Interval history: Patient seen earlier this morning, doing well medically at that time. Remains confused but is able to convey L hip pain. PN: Obj Ex Vital signs: Temp Pulse Resp BP Pulse Ox 99.0 F 76 16 150/82 H 94 L 11/10/18 12:00 11/10/18 12:00 11/10/18 12:00 11/10/18 12:00 11/10/18 12:00 - Routine Extremities Exam Comments: L hip dressing c/d/i, no drainage --> dressing removed, incisions c/d/i w/o active drainage, mild ecchymosis around superior incision +DF/PF/EHL LLE, but following commands somewhat difficult SILT distally LLE L calf soft, non-tender - Urinary Catheter Management Coude Cath placed during this visit: yes Urethral indwelling: Yes Reason for continuing: Not indwelling catheter Insertion date: 11/07/18 Insertion time: 17:08 Progress Note: A&P (1) Hip fracture, intertrochanteric Status: Acute Current Visit: Yes (2) Hypokalemia Status: Acute Current Visit: Yes (3) Anemia, chronic disease Status: Chronic Current Visit: No (4) BPH (benign prostatic hyperplasia) Status: Chronic Current Visit: No (5) Dementia Status: Chronic Current Visit: No (6) Hypertension Status: Chronic Current Visit: No (7) Physical debility Status: Chronic Current Visit: No Assessment and Plan for All Diagnoses:: 78yo M POD 3 s/p IMN L femur for IT fx -- WBAT LLE, [facility] -- strongly recommend bed/chair alarms and possibly 1:1 sitter -- ok from ortho standpoint to [facility] back [facility]; dressing changed today -- f/u with me 2 weeks post-op
== END 2018-11-10 15:05 | DRG 481 ==
LOC: ER 21:44 → 2ND 23:20
PROVIDERS: ADMIT Family Medicine; ATTEND Internal Medicine Adolescent Medicine
CPT/HCPCS: 36415; 70450; 71010; 71045; 72125; 72170; 73502; 76000; 80048; 80053; 81001; 83605; 83735; 84484; 85014; 85018; 85025; 87040; 87045; 87077; 87086; 87088; 87186; 93005; 94761; 97110; 97162; 97166; 97530; 97535; 99284; C1713; C1769; C1776; J2405

== ENCOUNTER 2018-11-17 05:17 | Inpatient (IN) ==
[2018-11-17 05:45] LABS: Basophils % 0.3 % (0.1-2.0); Eosinophils # 0.1 K/mm3 (0.0-0.4); Eosinophils % 0.4 % (0.1-12.0); Lymphocytes # 2.3 K/mm3 (0.7-4.5); Lymphocytes % 18.1 % (10-50); Mean Corpuscular HGB Conc 31.4 g/dL (31.8-35.4); Mean Corpuscular Hemoglobin 30.9 pg (27.0-31.2); Mean Corpuscular Volume 98.5 fl (80-94); Mean Platelet Volume 8.3 fl (7.4-10.4); Monocytes # 0.6 K/mm3 (0.1-1.0); Monocytes % 4.7 % (1.7-9.3); Neutrophils # 9.9 K/mm3 (1.8-7.8); Neutrophils % 76.6 % (37.0-80.0); Platelet Count 366 K/mm3 (142-424); Red Cell Distribution Width 16.2 % (11.5-17.5); White Blood Count 12.9 K/mm3 (4.8-10.8)
[2018-11-17 05:46] LABS: Hemoglobin 6.2 g/dL (14.1-18.0)
[2018-11-17 05:47] LABS: Hematocrit 19.7 % (42.0-52.0)
--- NOTE | 2018-11-17 05:50 | Emergency Department Note ---
ED Disposition Clinical Impression: Upper gastrointestinal hemorrhage, Melena, Acute blood loss anemia, Elevated troponin Disposition: Admitted as Observation Condition on Discharge: Serious Instructions: DI for Gastrointestinal Bleeding Referrals: Julio Connors MD [Primary Care Provider] - - Critical Care Critical Care Time: Yes Attestation: On 11/17/18, the high probability of a clinically significant, sudden or life threatening deterioration of the following system(s) required my full and direct attention, intervention and personal management. The time I documented below is in addition to time spent performing reported procedures but includes the following listed in this critical care notation. Total Critical Care Time: 60 Vital system(s) involved:: Shock (Hemorrhage) My critical care processes included: Initial and Re-exams, Data Review/Interpretation, Coordinating Care, Medication Orders and management, Documentation Medical Decision Making - Medical Records Medical records reviewed: Yes: I reviewed the patient's medical records. - Jasen Inquiry Pt receiving controlled substance: No Vital Signs: 11/17/18 05:23 11/17/18 05:50 11/17/18 06:10 Temperature 97.8 F Temperature Source Oral Pulse Rate [Right Brachial] 98 H 72 129 H Respiratory Rate 20 20 20 Blood Pressure [Right Arm] 86/34 L 74/40 L 63/40 L Blood Pressure Mean [Right Arm] 51 51 47 02 Sat by Pulse Oximetry 97 99 97 Oxygen Delivery Method Nasal Cannula Nasal Cannula Oxygen Flow Rate (LPM) 4 - Lab Data Lab results reviewed: Yes: I reviewed the patient's lab results. Lab Results 11/17/18 05:30: WBC 12.9 H, RBC 2.00 L, Hgb 6.2 L*, Hct 19.7 L*, MCV 98.5 H, MCH 30.9, MCHC 31.4 L, RDW 16.2, Plt Count 366, MPV 8.3, Neut % (Auto) 76.6, Lymph % (Auto) 18.1, [place] % (Auto) 4.7, Eos % (Auto) 0.4, Baso % (Auto) 0.3, Neut # (Auto) 9.9 H, Lymph # (Auto) 2.3, [place] # (Auto) 0.6, Eos # (Auto) 0.1, Baso # (Auto) 0.0 11/17/18 05:30: Sodium 147 H, Potassium 3.8, Chloride 114 H, Carbon Dioxide 23, Anion Gap 13.8, BUN 39 H, Creatinine 1.00, Estimated Creat Clear 68, Estimated GFR 72, Est GFR ( Amer) 87, Glucose 216 H, Calcium 7.4 L, Total Bilirubin 0.5, Direct Bilirubin 0.2, Indirect Bilirubin 0.3, AST 20, ALT 26, Alkaline Phosphatase 188 H, Troponin I 0.54 H, Total Protein 4.2 L D, Albumin 1.7 L 11/17/18 05:30: Blood Type O Positive, Antibody Screen Negative, Crossmatch (AHG) See Detail 11/17/18 05:57: Stool Occult Blood Positive A Result diagrams: 11/17/18 05:30 11/17/18 05:30 Orders (Tests/Meds): ED MEDICATIONS Generic Name Dose Route Start Last Admin Trade Name Freq PRN Reason Stop Dose Admin Sodium Chloride 1,000 mls @ 999 mls/hr 11/17/18 05:30 11/17/18 05:33 Sod Chlor 0.9% 1000ml Bag IV 11/17/18 06:30 999 mls/hr .Q1H1M HOLLIS Administration Sodium Chloride 1,000 mls @ 999 mls/hr 11/17/18 05:45 11/17/18 05:33 Sod Chlor 0.9% 1000ml Bag IV 11/17/18 06:45 999 mls/hr .Q1H1M HOLLIS Administration Sodium Chloride 250 mls @ 25 mls/hr 11/17/18 06:00 Sod Chlor 0.9% 250ml Bag IV 11/18/18 05:59 .Q10H HOLLIS Sodium Chloride 1,000 mls @ 999 mls/hr 11/17/18 06:15 11/17/18 06:08 Sod Chlor 0.9% 1000ml Bag IV 11/17/18 07:15 999 mls/hr .Q1H1M HOLLIS Administration Discontinued Medications Generic Name Dose Route Start Last Admin Trade Name Freq PRN Reason Stop Dose Admin Ondansetron HCl 4 mg 11/17/18 05:23 11/17/18 05:33 Zofran 4mg/2ml Vial IV 11/17/18 05:24 4 mg ONCE ONE Administration Pantoprazole Sodium 40 mg 11/17/18 05:33 11/17/18 05:34 Protonix 40mg Vial IV 11/17/18 05:34 40 mg ONCE ONE Administration Sodium Chloride 8 ml 11/17/18 05:33 11/17/18 05:34 Saline Flush 10ml Syringe IV 11/17/18 05:34 8 ml ONCE ONE Administration ORDERS Category Date Time Status PRBC [Red Blood Cells] Stat K 11/17/18 05:30 Results Type and Screen Stat BBK 11/17/18 05:30 Results Chest XR -- portable [XR chest portable] Stat Exams 11/17/18 05:44 Taken - Radiology Data #1 Image(s): Chest Image Reviewed: Yes I reviewed the patient's radiology image Preliminary Findings: Abnormal (cm) - ECG Data Tracing #1 Normal Sinus Rhythm: Yes Ischemic changes: non-specific ST-T wave changes ECG compared to prior tracings: this ECG reveals significant changes - Physician Consults Physician Consulted: dong Reason -: Admission GI Bleed HPI - General Chief complaint: GI Bleed Stated complaint: gi bleed Time Seen by Provider: 11/17/18 05:25 Mode of Arrival: EMS Source of Information: Patient, Relative, EMS, Medical Record Limitations: Altered Mental Status Description of Symptoms (Recalled from ER Triage Doc. by RN): care home staff reports that patient has been having dark stools throughout the day and that tonight he started having bloody emesis. pt is altered/confused, pale, diaphoretic and weak. - History of Present Illness HPI Narrative: pt with recent hip fx and has melena with vomited blood this am - was sent for eval- no pain reported MD complaint: blood streaked emesis, melena Onset (ago): hour(s) Consistency: constant Severity: severe Context: anticoagulant use Associated symptoms: denies other symptoms Treatments Prior to Arrival: none - Related Data Home Medications Medication Instructions Recorded Confirmed Atorvastatin Calcium [Atorvastatin 80 mg PO DAILY 03/03/18 11/17/18 80mg Tab] Clopidogrel Bisulfate [Plavix 75mg 75 mg PO DAILY 03/03/18 11/17/18 Tab] Ferrous Sulfate 325 mg PO BID 03/03/18 11/17/18 Finasteride [Proscar 5mg Tablet] 5 mg PO DAILY 03/03/18 11/17/18 Nitroglycerin 0.4 mg SL NEEDED PRN 03/03/18 11/17/18 Pantoprazole Sodium [Protonix 40mg 40 mg PO BID 03/03/18 11/17/18 tablet] Escitalopram Oxalate [Lexapro] 20 mg PO DAILY 08/05/18 11/17/18 Saccharomyces Boulardii [Probiotic] 250 mg PO DAILY 08/05/18 11/17/18 Lisinopril [Lisinopril 10mg Tab] 10 mg PO DAILY 08/06/18 11/17/18 Calcium Carbonate/Vitamin D3 1 each PO DAILY 11/06/18 11/17/18 [Oyster Shell-D 250 mg Tablet] Donepezil HCl [Aricept 10mg 10 mg PO HS 11/06/18 11/17/18 tablet] Fluticasone/Vilanterol [Breo 1 inh IH HS 11/06/18 11/17/18 Ellipta 100-25 Mcg INH] Mirtazapine 1 tab PO HS 11/06/18 11/17/18 Quetiapine Fumarate 25 mg PO BID 11/06/18 11/17/18 Acetaminophen [Acetaminophen 325mg 650 mg PO BID 11/17/18 11/17/18 tab] Aspirin [Aspirin 325mg Tab] 325 mg PO DAILY 11/17/18 11/17/18 Hydrocod/Acet 5/325 mg [[place] 1 tab PO Q4HP PRN 11/17/18 11/17/18 5/325mg tablet] Ondansetron HCl [Zofran 4mg Tab] 4 mg PO Q6HP PRN 11/17/18 11/17/18 Allergies Allergy/AdvReac Type Severity Reaction Status Date / Time Sulfa (Sulfonamide Allergy Unknown Verified 11/06/18 21:53 Antibiotics) [SULFA (SULFONAMIDE ANTIBIOTICS)] [facility] History - Hepatitis A Screen Drug use history?: No High risk sexual behaviors?: No History of sexually transmitted infection?: No Currently employed?: No Childcare worker?: No Do you have indoor plumbing?: Yes Do you have electricity?: Yes Attestation statement:: This patient has been screened for Hepatitis A risk factors. I have reviewed the patient's past medical history: Yes Medical History: Reports:: Aneurysm, BPH, Chronic Obstructive Pulmonary Disease (COPD), Coronary Artery Disease, Dementia, Hyperlipidemia, Hypertension, Kidney Stones, Peripheral Vascular Disease Denies:: Cancer, Diabetes Mellitus Type 1, Diabetes Mellitus Type 2, Internal Pacemaker, MRSA Other Medical History: Reports: Anemia Laterality Cases: Right: Arthroscopy Hip, Arthroscopy Shoulder Other Surgeries: Yes: No Previous Surgery, Coronary Stent, Other (kidney stones ). 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 Denies: abdominal pain - Genitourinary Male Genitourinary: Denies hematuria - Musculoskeletal Musculoskeletal: Denies joint pain - Integumentary/Breasts Skin/Breast: Denies rash - Neurologic Neurologic: Denies seizure-like activity Physical Exam - General General appearance: obtunded - Head Head exam: normocephalic - Eye Eye exam: Present: PERRL, EOMI, other (pale conj). Absent: scleral icterus - ENT ENT exam: Present: mucous membranes dry - Neck Neck exam: Present: trachea midline - Respiratory Respiratory exam: Absent: respiratory distress - Cardiovascular Cardiovascular exam: Present: regular rate, systolic murmur - Abdominal Exam Abdominal exam: Present: soft - Neurological Exam Neurological exam: Present: CN II-XII intact, other (confused) - Skin Skin exam: Absent: rash
[2018-11-17 05:57] LABS: Albumin Level 1.7 gm/dL (3.4-5.0); Anion Gap 13.8 mEq/L (5-15); Bilirubin,Direct 0.2 mg/dL (0.0-0.2); Bilirubin,Indirect 0.3 mg/dL (0.0-0.9); Bilirubin,Total 0.5 mg/dL (0.2-1.0); Calcium 7.4 mg/dL (8.5-10.1); Potassium 3.8 mmoL/L (3.5-5.1); Total Protein,Serum 4.2 gm/dL (6.4-8.2)
[2018-11-17 07:00] LABS: Microscopic, Urine URINE MICROSCOPIC (MICROSCOPIC)
[2018-11-17 07:01] LABS: Appearance,Urine SL CLOUDY (Clear); Bilirubin,Urine Negative (Negative); Blood, Urine TRACE-I (Negative); Color,Urine YELLOW (Yellow); Glucose,Urine (UA) Negative (Negative); Ketones,Urine Negative (Negative); Leukocyte Esterase,Urine 3+ (Negative); Protein,Urine Negative (Negative); Specific Gravity, Urine 1.015 (1.005-1.030); Urobilinogen,Urine 0.2 EU/dl (0.2)
[2018-11-17 07:11] LABS: Bacteria,Urine 2+ /lpf; RBC,Urine Occasional #/hpf (0-3); Squamous Epithelial Cell,Urine Occasional #/hpf (0-5); WBC,Urine 50-100 #/hpf (0-3)
--- NOTE | 2018-11-17 09:00 | Pharmacy Consult Notes ---
[facility] Pharmacy VTE Monitoring - Patient Demographics Admission date: 11/17/18 Report Date: 11/17/18 Time: 09:00 Allergies/Adverse Reactions: Patient Allergies Sulfa (Sulfonamide Antibiotics) [SULFA (SULFONAMIDE ANTIBIOTICS)] Allergy (Unknown, Verified 11/06/18 21:53) Height: 1.83 m Weight: 77.564 kg Patient Problems: Current Active Problems (Updated 11/17/18 @ 06:32 by Mika Borrego MD) Upper gastrointestinal hemorrhage (Acute) Melena (Acute) Acute blood loss anemia (Acute) Elevated troponin (Acute) - VTE Risk Labs: VTE Related Lab Results Hgb 6.2 g/dL (14.1-18.0) L* 11/17/18 05:30 Hct 19.7 % (42.0-52.0) L* 11/17/18 05:30 Plt Count 366 K/mm3 (142-424) 11/17/18 05:30 BUN 39 mg/dL (7-18) H 11/17/18 05:30 Creatinine 1.00 mg/dL (0.70-1.30) 11/17/18 05:30 Estimated Creat Clear 68 mL/min (50-200) 11/17/18 05:30 Was VTE Risk Assessment Performed: Yes VTE Score: 5 VTE Risk Level: Low Risk Clinical Trial Participant: No - Prophylaxis VTE Prophylaxis Ordered?: Yes Types of VTE Prophylaxis: TEDS Knee High
--- NOTE | 2018-11-17 13:39 | History & Physical Report ---
*Admission Date: 11/17/18 *Chief complaint: Upper GI bleeding *History of present illness: 78-year-old white male, long-term resident of alf in [place], [place], who recently had hip fracture repair and was discharged to alf for skilled care on November 09, and placed on dual antiplatelet therapy with aspirin, added to previously prescribed Plavix for DVT prophylaxis postoperative. Over the last 24 hours has been having dark stools, has been progressively more lethargic, and was noted to vomit gross blood this morning. Came to the emergency department. Hemoglobin 6.2 g, admitted to hospital for transfusion, hemodynamic stabilization and further observation. [facility] History I have reviewed the patient's past medical history: Yes Medical History: Reports:: Aneurysm, BPH, Congestive Heart Failure, Chronic Obstructive Pulmonary Disease (COPD), Coronary Artery Disease, Dementia, Hyperlipidemia, Hypertension, Kidney Stones, Peripheral Vascular Disease Denies:: Cancer, Diabetes Mellitus Type 1, Diabetes Mellitus Type 2, Internal Pacemaker, MRSA *Have you ever received a pneumonia vaccine?: Yes *Have you received a flu vaccine this season?: Yes Other Medical History: Reports: Anemia, Arthritis Laterality Cases: Right: Arthroscopy Hip, Arthroscopy Shoulder Other Surgeries: Yes: No Previous Surgery, Cardiac Catheterization, Coronary Stent, Other (kidney stones). No: Pacemaker Amputation: No Fractures: Yes (right humerus and ulna) - *Social History Smoking Status: Current every day smoker Tobacco Type: cigarettes # Packs/Day (cigarettes): 1 #Yrs smoked (if former smoker): 70 Alcohol Intake: never Alcohol Intake Frequency:: other Substance Use Type: denies use *Occupational Status:: retired, disabled Housing: alf Household Members: other *Travel in the last 8 weeks: None - Psychiatric History Expresses thoughts of harming self/others: None Suicide Plan Description: No Plan Family Hx:: Unable to obtain Review of Systems - Review of Systems Review of systems:: pertinent systems reviewed and negative unless documented below Patient denies pain, denies breathing problems, however other review of systems is unreliable given his significant dementia. - *Neurologic Denies seizure-like activity Meds Home Medications Medication Instructions Recorded Confirmed Type Atorvastatin Calcium [Atorvastatin 80 mg PO DAILY 03/03/18 11/17/18 History 80mg Tab] Clopidogrel Bisulfate [Plavix 75mg 75 mg PO DAILY 03/03/18 11/17/18 History Tab] Ferrous Sulfate 325 mg PO BID 03/03/18 11/17/18 History Finasteride [Proscar 5mg Tablet] 5 mg PO DAILY 03/03/18 11/17/18 History Nitroglycerin 0.4 mg SL NEEDED PRN 03/03/18 11/17/18 History Pantoprazole Sodium [Protonix 40mg 40 mg PO BID 03/03/18 11/17/18 History tablet] Escitalopram Oxalate [Lexapro] 20 mg PO DAILY 08/05/18 11/17/18 History Saccharomyces Boulardii [Probiotic] 250 mg PO DAILY 08/05/18 11/17/18 History Lisinopril [Lisinopril 10mg Tab] 10 mg PO DAILY 08/06/18 11/17/18 History Calcium Carbonate/Vitamin D3 1 each PO DAILY 11/06/18 11/17/18 History [Oyster Shell-D 250 mg Tablet] Donepezil HCl [Aricept 10mg 10 mg PO HS 11/06/18 11/17/18 History tablet] Fluticasone/Vilanterol [Breo 1 inh IH HS 11/06/18 11/17/18 History Ellipta 100-25 Mcg INH] Mirtazapine 7.5 mg PO HS 11/06/18 11/17/18 History Quetiapine Fumarate 25 mg PO BID 11/06/18 11/17/18 History Acetaminophen [Acetaminophen 325mg 650 mg PO BID 11/17/18 11/17/18 History tab] Aspirin [Aspirin 325mg Tab] 325 mg PO DAILY 11/17/18 11/17/18 History Hydrocod/Acet 5/325 mg [[place] 1 tab PO Q4HP PRN 11/17/18 11/17/18 History 5/325mg tablet] Ondansetron HCl [Zofran 4mg Tab] 4 mg PO Q6HP PRN 11/17/18 11/17/18 History Allergies Allergy/AdvReac Type Severity Reaction Status Date / Time Sulfa (Sulfonamide Allergy Unknown Verified 11/06/18 21:53 Antibiotics) [SULFA (SULFONAMIDE ANTIBIOTICS)] Exam Vital signs and Labs for Last 24 Hours: Temp Pulse Resp BP Pulse Ox 99.3 F 87 14 130/73 97 11/17/18 13:15 11/17/18 13:15 11/17/18 13:15 11/17/18 13:15 11/17/18 13:15 Laboratory Results - last 24 hr 11/17/18 05:30: WBC 12.9 H, RBC 2.00 L, Hgb 6.2 L*, Hct 19.7 L*, MCV 98.5 H, MCH 30.9, MCHC 31.4 L, RDW 16.2, Plt Count 366, MPV 8.3, Neut % (Auto) 76.6, Lymph % (Auto) 18.1, [place] % (Auto) 4.7, Eos % (Auto) 0.4, Baso % (Auto) 0.3, Neut # (Auto) 9.9 H, Lymph # (Auto) 2.3, [place] # (Auto) 0.6, Eos # (Auto) 0.1, Baso # (Auto) 0.0 11/17/18 05:30: Sodium 147 H, Potassium 3.8, Chloride 114 H, Carbon Dioxide 23, Anion Gap 13.8, BUN 39 H, Creatinine 1.00, Estimated Creat Clear 68, Estimated GFR 72, Est GFR ( Amer) 87, Glucose 216 H, Calcium 7.4 L, Total Bilirubin 0.5, Direct Bilirubin 0.2, Indirect Bilirubin 0.3, AST 20, ALT 26, Alkaline Phosphatase 188 H, Troponin I 0.54 H, Total Protein 4.2 L D, Albumin 1.7 L 11/17/18 05:30: Blood Type O Positive, Antibody Screen Negative, Crossmatch (AHG) See Detail 11/17/18 05:36: Blood Type Confirm O Positive 11/17/18 05:57: Stool Occult Blood Positive A 11/17/18 06:45: Urine Color Yellow, Urine Appearance Sl cloudy, Urine pH 6.0, Ur Specific [place] 1.015, Urine Protein Negative, Urine Glucose (UA) Negative, Urine Ketones Negative, Urine Blood Trace-i, Urine Nitrate Negative, Urine Bilirubin Negative, Urine Urobilinogen 0.2, Ur Leukocyte Esterase 3+ A, Urine RBC Occasional, Urine WBC 50-100, Ur Squamous Epith Cells Occasional, Urine Bacteria 2+ 11/17/18 09:40: Troponin I 0.48 H I & O for Last 24 hours: Intake & Output 11/15/18 11/16/18 11/17/18 11/18/18 11:59 11:59 11:59 11:59 Intake Total 250 / 250 250 / 250 Balance 250 / 250 250 / 250 Weight 170 lb 15.989 oz Narrative: I examined patient on second floor after he had had a couple of units of packed cells of blood. He appeared much better than ER exam notes. Alert, continues to be significantly demented. No active vomiting or evidence of bleeding noted. Oropharynx clear and moist. Anterior lung leal clear, heart rate irregular. Abdomen soft, recent hip fracture wound is clean and dry and intact. Distal extremities warm and well- perfused. Blood pressure is now stabilized and is normal. Assessment and Plan (1) Acute blood loss anemia Current visit: Yes Status: Acute Category: Medical Code(s): D62 - Acute posthemorrhagic anemia Admit to hospital. Will clearly need multiple units of transfusions given hemodynamic instability and volume of blood loss. (2) Upper gastrointestinal hemorrhage Current visit: Yes Status: Acute Category: Medical Code(s): K92.2 - Gastrointestinal hemorrhage, unspecified Obviously hold aspirin and Plavix. DVT risk will have to be assumed given the clear problem with upper GI hemorrhage. Intravenous proton pump inhibitor. Observation with blood counts later today and tomorrow morning.
[2018-11-17 13:42] LABS: Hematocrit 30.3 % (42.0-52.0); Hemoglobin 10.3 g/dL (14.1-18.0)
[2018-11-18 06:32] LABS: Basophils % 0.4 % (0.1-2.0); Eosinophils # 0.1 K/mm3 (0.0-0.4); Eosinophils % 1.4 % (0.1-12.0); Hematocrit 29.4 % (42.0-52.0); Hemoglobin 9.9 g/dL (14.1-18.0); Lymphocytes # 1.6 K/mm3 (0.7-4.5); Lymphocytes % 22.3 % (10-50); Mean Corpuscular HGB Conc 33.8 g/dL (31.8-35.4); Mean Corpuscular Hemoglobin 30.3 pg (27.0-31.2); Mean Corpuscular Volume 89.7 fl (80-94); Mean Platelet Volume 7.7 fl (7.4-10.4); Monocytes # 0.4 K/mm3 (0.1-1.0); Monocytes % 5.3 % (1.7-9.3); Neutrophils % 70.7 % (37.0-80.0); Platelet Count 228 K/mm3 (142-424); Red Blood Count 3.28 M/mm3 (4.60-6.20); Red Cell Distribution Width 18.5 % (11.5-17.5); White Blood Count 7.1 K/mm3 (4.8-10.8)
[2018-11-18 06:37] LABS: Anion Gap 13.5 mEq/L (5-15); Calcium 7.6 mg/dL (8.5-10.1); Potassium 3.5 mmoL/L (3.5-5.1)
--- NOTE | 2018-11-18 12:13 | Progress Note ---
Internal Medicine - PN: Subj *Date: 11/18/18 *Time: 12:06 Interval history: Mr. Garcia did well overnight. Remained hemodynamically stable. Did however have 2 melenic stools. No hematemesis. Hemoglobin this morning is down less than 1 full point. At his baseline of being pleasantly demented. Unable to give much review of systems or history due to baseline cognitive impairment. Exam Vital signs and Labs for Last 24 Hours: Temp Pulse Resp BP Pulse Ox 98.2 F 71 16 110/59 L 96 11/18/18 11:43 11/18/18 10:00 11/18/18 10:00 11/18/18 10:00 11/18/18 10:00 Laboratory Results - last 24 hr 11/17/18 05:30: Crossmatch (AHG) See Detail 11/17/18 13:26: Troponin I 0.45 H 11/17/18 13:26: Hgb 10.3 L D, Hct 30.3 L 11/18/18 06:20: WBC 7.1 D, RBC 3.28 L D, Hgb 9.9 L, Hct 29.4 L, MCV 89.7, MCH 30.3, MCHC 33.8, RDW 18.5 H, Plt Count 228 D, MPV 7.7, Neut % (Auto) 70.7, Lymph % (Auto) 22.3, [place] % (Auto) 5.3, Eos % (Auto) 1.4, Baso % (Auto) 0.4, Neut # (Auto) 5.0, Lymph # (Auto) 1.6, [place] # (Auto) 0.4, Eos # (Auto) 0.1, Baso # (Auto) 0.0 11/18/18 06:20: Sodium 148 H, Potassium 3.5, Chloride 115 H, Carbon Dioxide 23, Anion Gap 13.5, BUN 36 H, Creatinine 0.73 D, Estimated Creat Clear 65, Estimated GFR 103, Est GFR ( Amer) 125 D, Glucose 91, Calcium 7.6 L I & O for Last 24 hours: Intake & Output 11/15/18 11/16/18 11/17/18 11/18/18 23:59 23:59 23:59 23:59 Intake Total 1452 / 1452 974 / 974 Output Total 1300 / 1300 Balance 152 / 152 974 / 974 Weight 77.564 kg 76.657 kg Microbiology Reports for the Last 24 Hours: Microbiology 11/17/18 06:45 Urine,Catheterized Urine Culture - Preliminary NO GROWTH AFTER 24 HOURS Narrative: Alert, continues to be significantly demented. No active vomiting or evidence of bleeding noted. Oropharynx clear and moist. Soft restraint on left hand due to concern for pulling at IVs Anterior lung leal clear, heart rate irregular. Abdomen soft, recent hip fracture wound is clean and dry and intact. Distal extremities warm and well- perfused. Blood pressure is normal. Assessment and Plan (1) Acute blood loss anemia Current visit: Yes Status: Acute Category: Medical Code(s): D62 - Acute posthemorrhagic anemia (2) Upper gastrointestinal hemorrhage Current visit: Yes Status: Acute Category: Medical Code(s): K92.2 - Gastrointestinal hemorrhage, unspecified - Assessment and plan all Dx Assessment and Plan for all problems:: Status post 3 units packed red blood cells. 2 melenic stools overnight. We will continue to monitor for further bleeding today. Initiate sucralfate along with continued PPI. Continuing to hold Plavix and aspirin. If remains stable in the morning, plan to discharge back to assisted at that time.
[2018-11-19 05:17] LABS: Hemoglobin 9.1 g/dL (14.1-18.0)
--- NOTE | 2018-11-19 11:25 | Progress Note ---
Internal Medicine - PN: Subj *Date: 11/19/18 *Time: 11:22 Interval history: Mr. Granger continues to be at baseline dementia. Overnight had one dark stool, unclear if melenic. Did however have some bright red blood with clots passed yesterday evening. Otherwise remains hemodynamically stable, afebrile, tolerating diet. No abdominal pain, nausea or vomiting. No worsening shortness of breath Exam Vital signs and Labs for Last 24 Hours: Temp Pulse Resp BP Pulse Ox 98.2 F 69 18 124/64 98 11/19/18 08:00 11/19/18 08:50 11/19/18 08:50 11/19/18 08:00 11/19/18 08:50 Laboratory Results - last 24 hr 11/19/18 04:45: Hgb 9.1 L, Hct 27.0 L I & O for Last 24 hours: Intake & Output 11/16/18 11/17/18 11/18/18 11/19/18 23:59 23:59 23:59 23:59 Intake Total 1452 / 1452 1882 / 1882 483 / 483 Output Total 1300 / 1300 Balance 152 / 152 1882 / 1882 483 / 483 Weight 77.564 kg 76.657 kg 76.374 kg Microbiology Reports for the Last 24 Hours: Microbiology 11/17/18 06:45 Urine,Catheterized Urine Culture - Final NO GROWTH AFTER 48 HOURS Narrative: Alert, continues to be stable with baseline dementi. No active vomiting or evidence of bleeding noted. Oropharynx clear and moist. Anterior lung leal clear, heart rate irregular. Abdomen soft, recent hip fracture wound is clean and dry and intact. Distal extremities warm and well-perfused. Assessment and Plan (1) Acute blood loss anemia Current visit: Yes Status: Acute Category: Medical Code(s): D62 - Acute posthemorrhagic anemia (2) Upper gastrointestinal hemorrhage Current visit: Yes Status: Acute Category: Medical Code(s): K92.2 - Gastrointestinal hemorrhage, unspecified - Assessment and plan all Dx Assessment and Plan for all problems:: No significant change in status however did still have bright red blood per rectum last night. Continue to monitor 1 more day for stability of hemoglobin. If no further episodes in the next 24 hours, will be stable for discharge back to detention tomorrow..
--- NOTE | 2018-11-19 15:03 | Discharge Summary ---
General - General Admission date:: 11/17/18 Discharge date: 11/20/18 HPI HPI: 78-year-old white male, [facility] [place], [place], who recently had hip fracture repair and was discharged to [facility] for skilled care on November 09, and placed on dual antiplatelet therapy with aspirin, added to previously prescribed Plavix for DVT prophylaxis postoperative. Over the last 24 hours has been having dark stools, has been progressively more lethargic, and was noted to vomit gross blood this morning. Came to the emergency department. Hemoglobin 6.2 g, admitted to hospital for transfusion, hemodynamic stabilization and further observation. Hospital Course Hospital Course: Patient admitted due to concern for GI bleed. Plavix and aspirin were stopped as well as he was transfused a total of 4 units of packed red blood cells during admission. Patient continued for the first 36 hours to have an additional 3 melenic stools and 1 with blood clots. Remained hemodynamically stable however during admission with stable H&H noted over the last 36 hours of admission. Patient was re-fed his last day of admission and tolerated well. Tolerating PPI and Carafate. At this time the decision was made that continuing Plavix and aspirin was more risk than benefit so they will not be continued at discharge. Additionally on day of discharge Mr. Granger's left hip was noted to be edematous and warm to touch with bruising around incisions. Incisions were mildly red with the jt still intact. CT of left hip and x-ray of left hip obtained showing no fluid collection or infection. Surgery/orthopedics was consulted as his hip replacement had just recently been performed. They removed the jt and have low suspicion at this time for any infection. Of note patient's white cell count stable with no elevation. Patient was not given any antibiotics. Deemed medically stable for discharge back to his [facility]. Denies abdominal pain, nausea or vomiting, shortness of breath, chest pain. Does still have left leg pain in the post operative setting. Objective Vital signs: Temp Pulse Resp BP Pulse Ox 98.2 F 69 18 124/64 98 11/19/18 08:00 11/19/18 08:50 11/19/18 08:50 11/19/18 08:00 11/19/18 08:50 Narrative: Alert, continues to be stable with baseline dementia. No active vomiting or evidence of bleeding noted. Answers questions this morning Oropharynx clear and moist. Anterior lung leal clear, heart rate irregular. Abdomen soft, recent hip fracture wound is clean and dry and intact. Distal extremities warm and well-perfused. Left hip surgical incision clean dry and intact, pitting edema noted, warm to touch but no erythema other than mild erythema at incision sites which is expected for normal healing. Ecchymoses dependently below incisions. No purulent drainage or weeping Results Labs on day of discharge: Labs from last 24 hours 11/19/18 04:45 Hgb 9.1 L Hct 27.0 L DS: Diagnosis - Discharge Diagnosis (1) Acute blood loss anemia Status: Acute (2) Upper gastrointestinal hemorrhage Status: Acute Discharge Plan - Patient Discharge Instructions ACTIVITY: Continue current activity DIET: continue same diet Patient Instructions: Anemia, Gastrointestinal Bleeding - Follow up Plan Disposition: [facility] Home Medications: Home Medications Medication Instructions Recorded Confirmed Type RX: Atorvastatin Calcium 80 mg PO DAILY 03/03/18 11/17/18 History [Atorvastatin 80mg Tab] RX: Clopidogrel Bisulfate [Plavix 75 mg PO DAILY 03/03/18 11/17/18 History 75mg Tab] RX: Ferrous Sulfate 325 mg PO BID 03/03/18 11/17/18 History RX: Finasteride [Proscar 5mg 5 mg PO DAILY 03/03/18 11/17/18 History Tablet] RX: Nitroglycerin 0.4 mg SL NEEDED PRN 03/03/18 11/17/18 History RX: Pantoprazole Sodium [Protonix 40 mg PO BID 03/03/18 11/17/18 History 40mg tablet] RX: Escitalopram Oxalate [Lexapro] 20 mg PO DAILY 08/05/18 11/17/18 History RX: Saccharomyces Boulardii 250 mg PO DAILY 08/05/18 11/17/18 History [Probiotic] RX: Lisinopril [Lisinopril 10mg 10 mg PO DAILY 08/06/18 11/17/18 History Tab] RX: Calcium Carbonate/Vitamin D3 1 each PO DAILY 11/06/18 11/17/18 History [Oyster Shell-D 250 mg Tablet] RX: Donepezil HCl [Aricept 10mg 10 mg PO HS 11/06/18 11/17/18 History tablet] RX: Fluticasone/Vilanterol [Breo 1 inh IH HS 11/06/18 11/17/18 History Ellipta 100-25 Mcg INH] RX: Mirtazapine 7.5 mg PO HS 11/06/18 11/17/18 History RX: Quetiapine Fumarate 25 mg PO BID 11/06/18 11/17/18 History Aspirin [Aspirin 325mg Tab] 325 mg PO DAILY 11/17/18 11/17/18 History Ondansetron HCl [Zofran 4mg Tab] 4 mg PO Q6HP PRN 11/17/18 11/17/18 History RX: Acetaminophen [Acetaminophen 650 mg PO BID 11/17/18 11/17/18 History 325mg tab] RX: Hydrocod/Acet 5/325 mg [Margie 1 tab PO Q4HP PRN 11/17/18 11/17/18 History 5/325mg tablet] Prescriptions/Medication Reconciliation: New RX: Sucralfate [Carafate 1gm Tab] 1 gm PO ACHS tablet Continued RX: Pantoprazole Sodium [Protonix 40mg tablet] 40 mg PO BID RX: Finasteride [Proscar 5mg Tablet] 5 mg PO DAILY RX: Ferrous Sulfate 325 mg PO BID RX: Atorvastatin Calcium [Atorvastatin 80mg Tab] 80 mg PO DAILY RX: Nitroglycerin 0.4 mg SL NEEDED PRN PRN Reason: Chest Pain RX: Saccharomyces Boulardii [Probiotic] 250 mg PO DAILY RX: Escitalopram Oxalate [Lexapro] 20 mg PO DAILY RX: Calcium Carbonate/Vitamin D3 [Oyster Shell-D 250 mg Tablet] 1 each PO DAILY RX: Fluticasone/Vilanterol [Breo Ellipta 100-25 Mcg INH] 1 inh IH HS RX: Donepezil HCl [Aricept 10mg tablet] 10 mg PO HS RX: Acetaminophen [Acetaminophen 325mg tab] 650 mg PO BID RX: Lisinopril [Lisinopril 10mg Tab] 10 mg PO DAILY RX: Mirtazapine 7.5 mg PO HS RX: Quetiapine Fumarate 25 mg PO BID RX: Hydrocod/Acet 5/325 mg [Margie 5/325mg tablet] 1 tab PO Q4HP PRN PRN Reason: PAIN Ondansetron HCl [Zofran 4mg Tab] 4 mg PO Q6HP PRN PRN Reason: Nausea Discontinued Aspirin [Aspirin 325mg Tab] 325 mg PO DAILY RX: Clopidogrel Bisulfate [Plavix 75mg Tab] 75 mg PO DAILY
[2018-11-20 07:00] LABS: Basophils % 0.3 % (0.1-2.0); Eosinophils % 0.7 % (0.1-12.0); Hematocrit 28.1 % (42.0-52.0); Hemoglobin 9.2 g/dL (14.1-18.0); Lymphocytes # 0.8 K/mm3 (0.7-4.5); Lymphocytes % 11.7 % (10-50); Mean Corpuscular HGB Conc 32.8 g/dL (31.8-35.4); Mean Corpuscular Hemoglobin 30.2 pg (27.0-31.2); Mean Corpuscular Volume 91.9 fl (80-94); Mean Platelet Volume 7.9 fl (7.4-10.4); Monocytes # 0.3 K/mm3 (0.1-1.0); Monocytes % 4.7 % (1.7-9.3); Neutrophils # 5.5 K/mm3 (1.8-7.8); Neutrophils % 82.6 % (37.0-80.0); Platelet Count 226 K/mm3 (142-424); Red Blood Count 3.05 M/mm3 (4.60-6.20); Red Cell Distribution Width 18.5 % (11.5-17.5); White Blood Count 6.6 K/mm3 (4.8-10.8)
[2018-11-20 07:01] LABS: Anion Gap 14.1 mEq/L (5-15); Calcium 7.2 mg/dL (8.5-10.1); Potassium 3.1 mmoL/L (3.5-5.1)
--- NOTE | 2018-11-20 09:40 | Progress Note ---
Internal Medicine - PN: Subj *Date: 11/20/18 *Time: 09:23 Exam Vital signs and Labs for Last 24 Hours: Temp Pulse Resp BP Pulse Ox 99.7 F H 74 18 128/64 93 L 11/20/18 07:26 11/20/18 07:26 11/20/18 07:11/20/18 07:11/20/18 07:26 Laboratory Results - last 24 hr 11/20/18 05:40: Sodium 144, Potassium 3.1 L, Chloride 110 H, Carbon Dioxide 23, Anion Gap 14.1, BUN 17 D, Creatinine 0.72, Estimated Creat Clear 62, Estimated GFR 105, Est GFR ( Amer) 127, Glucose 70 L, Calcium 7.2 L 11/20/18 06:26: WBC 6.6, RBC 3.05 L, Hgb 9.2 L, Hct 28.1 L, MCV 91.9, MCH 30.2, MCHC 32.8, RDW 18.5 H, Plt Count 226, MPV 7.9, Neut % (Auto) 82.6 H, Lymph % (Auto) 11.7, [place] % (Auto) 4.7, Eos % (Auto) 0.7, Baso % (Auto) 0.3, Neut # (Auto) 5.5, Lymph # (Auto) 0.8, [place] # (Auto) 0.3, Eos # (Auto) 0.0, Baso # (Auto) 0.0 I & O for Last 24 hours: Intake & Output 11/17/18 11/18/18 11/19/18 11/20/18 23:59 23:59 23:59 23:59 Intake Total 1452 / 1452 1881 1882 1311 / 1311 558 / 558 Output Total 1300 / 1300 Balance 152 / 152 1881 / 1882 1311 / 1311 558 / 558 Weight 77.564 kg 76.657 kg 76.374 kg 74.389 kg Microbiology Reports for the Last 24 Hours: Microbiology 11/17/18 06:45 Urine,Catheterized Urine Culture - Final NO GROWTH AFTER 48 HOURS Assessment and Plan (1) Acute blood loss anemia Current visit: Yes Status: Acute Category: Medical Code(s): D62 - Acute posthemorrhagic anemia (2) Upper gastrointestinal hemorrhage Current visit: Yes Status: Acute Category: Medical Code(s): K92.2 - Gastrointestinal hemorrhage, unspecified
--- NOTE | 2018-11-20 10:44 | Consult Report ---
*Admission Date: 11/17/18 *Chief complaint: s/p IMN L hip fx 11/08; incisional redness *History of present illness: 78yo M admitted 11/17/2018 from [place] with reports of melena/bloody emesis, Hgb 6.2. Transfused 4u PRBC and ASA/plavix held. Has improved over the past few days, but L hip incisions became erythematous the last 24 hours. He is nearly 2 weeks s/p IMN for L IT fx (short gamma nail). No reported drainage from the hip. Afebrile, no leukocytosis. Vanc, cefepime and flagyl started this morning. CT of the hip earlier this morning shows no abscess or focal fluid collections. The patient has some pain in the left hip, denies abdominal pain. Review of Systems - Review of Systems Review of systems:: pertinent systems reviewed and negative unless documented below - *Neurologic Denies seizure-like activity [facility] History I have reviewed the patient's past medical history: Yes Medical History: Reports:: Aneurysm, BPH, Congestive Heart Failure, Chronic Obstructive Pulmonary Disease (COPD), Coronary Artery Disease, Dementia, Hyperlipidemia, Hypertension, Kidney Stones, Peripheral Vascular Disease Denies:: Cancer, Diabetes Mellitus Type 1, Diabetes Mellitus Type 2, Internal Pacemaker, MRSA *Have you ever received a pneumonia vaccine?: Yes *Have you received a flu vaccine this season?: Yes Other Medical History: Reports: Anemia, Arthritis Laterality Cases: Right: Arthroscopy Hip, Arthroscopy Shoulder Other Surgeries: Yes: No Previous Surgery, Cardiac Catheterization, Coronary Stent, Other (kidney stones). No: Pacemaker Amputation: No Fractures: Yes (right humerus and ulna) - *Social History Smoking Status: Current every day smoker Tobacco Type: cigarettes # Packs/Day (cigarettes): 1 #Yrs smoked (if former smoker): 70 Alcohol Intake: never Alcohol Intake Frequency:: other Substance Use Type: denies use *Occupational Status:: retired, disabled Housing: jail Household Members: other *Travel in the last 8 weeks: None - Psychiatric History Expresses thoughts of harming self/others: None Suicide Plan Description: No Plan Family Hx:: Unable to obtain Meds Home Medications Medication Instructions Recorded Confirmed Type Atorvastatin Calcium [Atorvastatin 80 mg PO DAILY 03/03/18 11/17/18 History 80mg Tab] Clopidogrel Bisulfate [Plavix 75mg 75 mg PO DAILY 03/03/18 11/17/18 History Tab] Ferrous Sulfate 325 mg PO BID 03/03/18 11/17/18 History Finasteride [Proscar 5mg Tablet] 5 mg PO DAILY 03/03/18 11/17/18 History Nitroglycerin 0.4 mg SL NEEDED PRN 03/03/18 11/17/18 History Pantoprazole Sodium [Protonix 40mg 40 mg PO BID 03/03/18 11/17/18 History tablet] Escitalopram Oxalate [Lexapro] 20 mg PO DAILY 08/05/18 11/17/18 History Saccharomyces Boulardii [Probiotic] 250 mg PO DAILY 08/05/18 11/17/18 History Lisinopril [Lisinopril 10mg Tab] 10 mg PO DAILY 08/06/18 11/17/18 History Calcium Carbonate/Vitamin D3 1 each PO DAILY 11/06/18 11/17/18 History [Oyster Shell-D 250 mg Tablet] Donepezil HCl [Aricept 10mg 10 mg PO HS 11/06/18 11/17/18 History tablet] Fluticasone/Vilanterol [Breo 1 inh IH HS 11/06/18 11/17/18 History Ellipta 100-25 Mcg INH] Mirtazapine 7.5 mg PO HS 11/06/18 11/17/18 History Quetiapine Fumarate 25 mg PO BID 11/06/18 11/17/18 History Acetaminophen [Acetaminophen 325mg 650 mg PO BID 11/17/18 11/17/18 History tab] Aspirin [Aspirin 325mg Tab] 325 mg PO DAILY 11/17/18 11/17/18 History Hydrocod/Acet 5/325 mg [[place] 1 tab PO Q4HP PRN 11/17/18 11/17/18 History 5/325mg tablet] Ondansetron HCl [Zofran 4mg Tab] 4 mg PO Q6HP PRN 11/17/18 11/17/18 History Allergies Allergy/AdvReac Type Severity Reaction Status Date / Time Sulfa (Sulfonamide Allergy Unknown Verified 11/06/18 21:53 Antibiotics) [SULFA (SULFONAMIDE ANTIBIOTICS)] Exam Vital signs and Labs for Last 24 Hours: Temp Pulse Resp BP Pulse Ox 99.7 F H 74 18 128/64 93 L 11/20/18 07:26 11/20/18 07:26 11/20/18 07:26 11/20/18 07:26 11/20/18 07:26 Laboratory Results - last 24 hr 11/20/18 05:40: Sodium 144, Potassium 3.1 L, Chloride 110 H, Carbon Dioxide 23, Anion Gap 14.1, BUN 17 D, Creatinine 0.72, Estimated Creat Clear 62, Estimated GFR 105, Est GFR ( Amer) 127, Glucose 70 L, Calcium 7.2 L 11/20/18 06:26: WBC 6.6, RBC 3.05 L, Hgb 9.2 L, Hct 28.1 L, MCV 91.9, MCH 30.2, MCHC 32.8, RDW 18.5 H, Plt Count 226, MPV 7.9, Neut % (Auto) 82.6 H, Lymph % (Auto) 11.7, [place] % (Auto) 4.7, Eos % (Auto) 0.7, Baso % (Auto) 0.3, Neut # (Auto) 5.5, Lymph # (Auto) 0.8, [place] # (Auto) 0.3, Eos # (Auto) 0.0, Baso # (Auto) 0.0 I & O for Last 24 hours: Intake & Output 11/17/18 11/18/18 11/19/18 11/20/18 11:59 11:59 11:59 11:59 Intake Total 250 / 250 2416 / 2416 1151 / 1151 1626 / 1626 Output Total 1300 / 1300 Balance 250 / 250 1116 / 1116 1151 / 1151 1626 / 1626 Weight 170 lb 15.989 oz 169 lb 168 lb 6 oz 164 lb Microbiology Reports for the Last 24 Hours: Microbiology 11/17/18 06:45 Urine,Catheterized Urine Culture - Final NO GROWTH AFTER 48 HOURS - Constitutional no acute distress, average body habitus, cooperative - *Routine HEENT Exam Head: Present: normocephalic Eye: Present: EOMI - *Routine Respiratory Exam Present: CTA bilaterally. Absent: accessory muscle use, wheezes - *Routine Cardiovascular Exam Present: RRR - *Routine Abdominal Exam Present: soft. Absent: tenderness, distended - *Routine Extremities Exam Comments: L hip incisions c/d/i, jt intact mild periwound ecchymosis, pink around jt but no spreading erythema or cellulitis no active drainage from the hip, no fluid expressible minimal tenderness over incisions, skin warm +DF/PF/EHL LLE SILT distally LLE L calf soft, non-tender palpable pedal pulses LLE, though weak (baseline) - *Routine Skin Exam Present: intact, warm, ecchymosis - *Routine Neurological Exam Present: alert, moving all extremities, vision grossly intact, hearing grossly intact. Absent: sensory deficit, motor deficit Results - Labs Result Diagrams: 11/20/18 06:26 11/20/18 05:40 Labs: Abnormal lab results 11/20/18 11/20/18 Range/Units 05:40 06:26 RBC 3.05 L (4.60-6.20) M/mm3 Hgb 9.2 L (14.1-18.0) g/dL Hct 28.1 L (42.0-52.0) % RDW 18.5 H (11.5-17.5) % Neut % (Auto) 82.6 H (37.0-80.0) % Potassium 3.1 L (3.5-5.1) mmoL/L Chloride 110 H (98-107) mmol/L Glucose 70 L (74-106) mg/dL Calcium 7.2 L (8.5-10.1) mg/dL H & H 11/17/18 11/17/18 11/18/18 Range/Units 05:30 13:26 06:20 Hgb 6.2 L* 10.3 L D 9.9 L (14.1-18.0) g/dL Hct 19.7 L* 30.3 L 29.4 L (42.0-52.0) % 11/19/18 11/20/18 Range/Units 04:45 06:26 Hgb 9.1 L 9.2 L (14.1-18.0) g/dL Hct 27.0 L 28.1 L (42.0-52.0) % All other labs normal. - Diagnostic results Hip x-ray: image reviewed (IMN (short gamma nail) L hip intact, fracture collapsed into valgus but stable appearing) Assessment and Plan (1) Acute blood loss anemia Current visit: Yes Status: Acute Category: Medical Code(s): D62 - Acute posthemorrhagic anemia (2) Upper gastrointestinal hemorrhage Current visit: Yes Status: Acute Category: Medical Code(s): K92.2 - Gastrointestinal hemorrhage, unspecified (3) Hip fracture, intertrochanteric Current visit: No Status: Acute Qualifiers: Encounter type: initial encounter Fracture type: closed Fracture alignment: displaced Laterality: left Qualified Code(s): S72.142A - Displaced intertrochanteric fracture of left femur, initial encounter for closed fracture Category: Medical Code(s): S72.143A - Displaced intertrochanteric fracture of unspecified femur, initial encounter for closed fracture - Assessment and plan all Dx Assessment and Plan for all problems:: 78yo M 2 weeks s/p IMN L hip for IT fx -- jt causing irritation of skin, pink discoloration around jt but no cellulitis, no suspicion for abscess/deep infection or hematoma that needs to be drained -- jt were removed, steri-strips placed -- ice pack to L hip -- do not believe IV antibiotics are needed -- ok from ortho perspective to d/c back to [facility], continue PT/OT, WBAT LLE with assist -- patient had appointment with me in a few days, will call [facility] tomorrow to reschedule since jt were removed and XR done today
== END 2018-11-20 15:58 | DRG 812 ==
LOC: 2ND 05:17 → ER 05:17 → OBSVTOIN 08:07 → 2ND 08:08
PROVIDERS: ADMIT Family Medicine; ATTEND Internal Medicine Adolescent Medicine
CPT/HCPCS: 36415; 36430; 71010; 71045; 73502; 73702; 80048; 80076; 81001; 82272; 84484; 85014; 85018; 85025; 86850; 87086; 93005; 94761; 96365; 96366; 96375; 99285; G0328; J2405; P9016; Q9967

== ENCOUNTER → 2018-12-11 13:16 | Outpatient (CLI) | payer MEDICARE, SELFPAY ==
--- NOTE | 2018-12-11 13:22 | XR_ITS ---
XR hip LT 2-3V w/pelvis HISTORY: Follow-up ORIF ITS.REASON: post op ORDERING PHYSICIAN: Yissel Salguero MD PATIENT AGE: 78 years COMPARISON: 11/20/2018 FINDINGS: Femoral decompression screw is present stabilizing an intertrochanteric fracture with good alignment with sclerosis at fracture site. IMPRESSION: Good alignment status post ORIF healing left intertrochanteric femoral neck fracture
== END ==
PROVIDERS: PCP Internal Medicine Adolescent Medicine; Visit Provider Orthopaedic Surgery
DX: S72.002A Fracture of unspecified part of neck of left femur, initial encounter for closed fracture (principal)
CPT/HCPCS: 73502

== ENCOUNTER → 2019-01-12 12:42 | Outpatient (CLI) | payer MEDICARE, SELFPAY ==
--- NOTE | 2019-01-12 12:50 | XR_ITS ---
XR hip LT 2-3V w/pelvis HISTORY: Follow-up fracture ITS.REASON: s/p hip sx ORDERING PHYSICIAN: Yissel Salguero MD PATIENT AGE: 78 years COMPARISON: Left hip 12/11/2018 FINDINGS: The threaded femoral screw is in good alignment and the femoral neck and head. The femoral head appears viable. There is increased bone density along the intertrochanteric fracture line consistent with healing. The intramedullary kris is in good position within the proximal femur. IMPRESSION: Satisfactory ORIF intertrochanteric fracture left hip
== END ==
PROVIDERS: PCP Internal Medicine Adolescent Medicine; Visit Provider Orthopaedic Surgery
DX: S72.142A Displaced intertrochanteric fracture of left femur, initial encounter for closed fracture (principal)
CPT/HCPCS: 73502

== ENCOUNTER → 2020-06-03 15:25 | Outpatient (CLI) | payer MEDICARE, SELFPAY ==
[2020-06-05 14:03] LABS: Covid-19 Nasal PCR Sendout Lex Positive
== END ==
PROVIDERS: Visit Provider Internal Medicine Adolescent Medicine
DX: Z20.828 Contact with and (suspected) exposure to other viral communicable diseases (principal); U07.1 COVID-19
CPT/HCPCS: U0004

== ENCOUNTER 2020-07-07 23:06 | Inpatient (IN) | payer MEDICARE, SELFPAY ==
--- NOTE | 2020-07-07 22:44 | ECG_ITS ---
APPROVED REPORT Exam: Resting ECG HR:112 bpm ECG Measurements Heart Rate 112 AXES NE 198 P 46 QRSd 82 QRS 36 QT 308 T 116 QTc 420 Conclusion Undetermined rhythm Low voltage QRS Cannot rule out Anteroseptal infarct, age undetermined ST & T wave abnormality, consider lateral ischemia Abnormal ECG Electronically signed by : Julio Connors, 07/08/2020 06:58:01
[2020-07-07 23:02] VITALS: BP 83/51; PULSE 112; RESP 28; TEMP 38.4; O2SAT 85; BMI 21.2
--- NOTE | 2020-07-07 23:24 | [facility].EDSOB ---
ED Disposition Clinical Impression: HCAP (healthcare-associated pneumonia), Severe sepsis with acute organ dysfunction, COVID-19 virus detected, COVID-19 virus IgG antibody detected, COVID-19 virus IgM antibody detected Respiratory failure with hypoxia Qualifiers: Chronicity: acute on chronic Qualified Code(s): J96.21 - Acute and chronic respiratory failure with hypoxia Anemia Qualifiers: Anemia type: unspecified type Qualified Code(s): D64.9 - Anemia, unspecified Disposition: Admitted As Inpatient Condition on Discharge: Serious Referrals: PCP,No [Primary Care Provider] - - Critical Care Critical Care Time: Yes Attestation: On 07/07/20, the high probability of a clinically significant, sudden or life threatening deterioration of the following system(s) required my full and direct attention, intervention and personal management. The time I documented below is in addition to time spent performing reported procedures but includes the following listed in this critical care notation. Total Critical Care Time: 60 Vital system(s) involved:: Respiratory Failure My critical care processes included: Assessment & monitoring of V/S, Initial and Re-exams, Coordinating Care, Medication Orders and management, Documentation Medical Decision Making - Medical Records Medical records reviewed: Yes: I reviewed the patient's medical records. - Jasen Inquiry Pt receiving controlled substance: No Vital Signs: 07/07/20 23:02 07/07/20 23:30 07/08/20 00:00 Temperature 101.2 F H Temperature Source Rectal Pulse Rate [Right] 112 H 109 H 111 H Respiratory Rate 28 H 29 H 30 H Blood Pressure [Right Arm] 83/51 L 99/44 L 87/46 L Blood Pressure Mean [Right Arm] 61 62 59 Blood Pressure Source [Right Arm] Automatic Cuff Automatic Cuff Automatic Cuff Blood Pressure Position [Right Arm] Supine Supine Supine 02 Sat by Pulse Oximetry 85 L 88 L 87 L Oxygen Delivery Method Non-Rebreather Nasal Cannula Nasal Cannula Oxygen Flow Rate (LPM) 4 4 07/08/20 00:30 07/08/20 01:00 07/08/20 01:26 Temperature Temperature Source Pulse Rate [Right] 92 H 101 H 105 H Respiratory Rate 26 H 24 23 Blood Pressure [Right Arm] 85/48 L 82/47 L 88/57 L Blood Pressure Mean [Right Arm] 60 58 67 Blood Pressure Source [Right Arm] Automatic Cuff Automatic Cuff Blood Pressure Position [Right Arm] Supine Sitting Sitting 02 Sat by Pulse Oximetry 92 L 90 L 92 L Oxygen Delivery Method Nasal Cannula Room Air Room Air Oxygen Flow Rate (LPM) 4 07/08/20 01:45 Temperature Temperature Source Pulse Rate [Right] 94 H Respiratory Rate 22 Blood Pressure [Right Arm] 101/72 L Blood Pressure Mean [Right Arm] 81 Blood Pressure Source [Right Arm] Automatic Cuff Blood Pressure Position [Right Arm] Sitting 02 Sat by Pulse Oximetry 94 L Oxygen Delivery Method Room Air Oxygen Flow Rate (LPM) - Lab Data Lab results reviewed: Yes: I reviewed the patient's lab results. Lab Results 07/07/20 23:05: WBC 12.8 H, RBC 3.16 L, Hgb 9.9 L, Hct 32.5 L, MCV 103.0 H, MCH 31.2, MCHC 30.3 L, RDW 15.7, Plt Count 284, MPV 8.0, Neut % (Auto) 93.8 H, Lymph % (Auto) 3.7 L, [place] % (Auto) 2.1, Eos % (Auto) 0.1, Baso % (Auto) 0.2, Neut # (Auto) 12.0 H, Lymph # (Auto) 0.5 L, [place] # (Auto) 0.3, Eos # (Auto) 0.0, Baso # (Auto) 0.0, Total Counted 100, Neutrophils % (Manual) 96 H, Lymphocytes % (Manual) 2 L, Monocytes % (Manual) 2, Platelet Estimate Normal, Macrocytosis 1+, ESR 123 H 07/07/20 23:05: Sodium 140, Potassium 4.1, Chloride 107, Carbon Dioxide 24, Anion Gap 13.1, BUN 22 H, Creatinine 1.10, Estimated Creat Clear 47, Estimated GFR 64, Est GFR ( Amer) 78, Glucose 156 H, Calcium 9.3, Total Bilirubin 0.3, AST 34, ALT 22, Alkaline Phosphatase 189 H, Troponin I 0.07 H, C-Reactive Protein 6.0 H, Total Protein 6.6, Albumin 3.3 L, Globulin 3.3 H, Albumin/Globulin Ratio 1.0 L, Procalcitonin 0.324 07/07/20 23:07: Lactate 3.4 H 07/07/20 23:45: SARS-CoV-2 IgG Ab (Rapid) Positive A, SARS-CoV-2 IgM
[2020-07-07 23:30] VITALS: BP 99/44; PULSE 109; RESP 29; O2SAT 88
[2020-07-08] VITALS (15 sets, daily range): BP systolic 82–149; BP diastolic 42–98; PULSE 80–111; RESP 20–30; TEMP 36.6–37.6; O2SAT 87–94; BMI 24.2
[2020-07-08 00:07] LABS: Adenovirus,PCR Not Detected (NotDetected); Bordetella Pertussis Not Detected (NotDetected); Chlamydophila Pneumoniae, PCR Not Detected (NotDetected); Coronavirus 229E Not Detected (NotDetected); Coronavirus NL63 Not Detected (NotDetected); Coronavirus OC43 Not Detected (NotDetected); Coronovirus HKU1,PCR Not Detected (NotDetected); Human Metapneumovirus Not Detected (NotDetected); Influenza A, PCR Not Detected (NotDetected); Influenza AH1, 2009 Not Detected (NotDetected); Influenza AH1, PCR Not Detected (NotDetected); Influenza AH3,PCR Not Detected (NotDetected); Influenza B, PCR Not Detected (NotDetected); Microscopic, Urine URINE MICROSCOPIC (MICROSCOPIC); Mycoplasma Pneumoniae, PCR Not Detected (NotDetected); Parainfluenza 1, PCR Not Detected (NotDetected); Parainfluenza 2, PCR Not Detected (NotDetected); Parainfluenza 3, PCR Not Detected (NotDetected); Parainfluenza 4, PCR Not Detected (NotDetected); Respiratory Syncytial Virus Not Detected (NotDetected); Rhinovirus/Enterovirus Not Detected (NotDetected)
[2020-07-08 00:07] LABS: Basophils % 0.2 % (0.1-2.0); Chloride 107 mmol/L (98-107); Eosinophils % 0.1 % (0.1-12.0); Hematocrit 32.5 % (42.0-52.0); Hemoglobin 9.9 g/dL (14.1-18.0); Lymphocytes # 0.5 K/mm3 (0.7-4.5); Lymphocytes % 3.7 % (10-50); Mean Corpuscular HGB Conc 30.3 g/dL (31.8-35.4); Mean Corpuscular Hemoglobin 31.2 pg (27.0-31.2); Monocytes # 0.3 K/mm3 (0.1-1.0); Monocytes % 2.1 % (1.7-9.3); Neutrophils % 93.8 % (37.0-80.0); Platelet Count 284 K/mm3 (142-424); Red Blood Count 3.16 M/mm3 (4.60-6.20); Red Cell Distribution Width 15.7 % (11.5-17.5); Sodium 140 mmol/L (136-145); White Blood Count 12.8 K/mm3 (4.8-10.8)
[2020-07-08 00:08] LABS: ABG Base Excess -5.5 mmol/L (-2.4-2.3); ABG HCO3 19.3 mmhg (22.0-26.0); ABG Oxygen Saturation 88 % (90-100); ABG PCO2 31.6 mmhg (35.0-45.0); ABG PO2 56.8 mmhg (80-100); ABG TCO2 20.2 mmhg (23-27)
[2020-07-08 00:08] LABS: Potassium 4.1 mmoL/L (3.5-5.1)
[2020-07-08 00:09] LABS: MANUAL DIFFERENTIAL MANUAL DIFFERENTIAL (MANUAL DIFF)
[2020-07-08 00:09] LABS: Allen's Test Patient Unable; Oxygen 100 %; Source Right Radial
[2020-07-08 00:10] LABS: Alanine Aminotransferase 22 U/L (12-78); Albumin Level 3.3 g/dl (3.5-5.0); Alkaline Phosphatase 189 U/L (38-126); Anion Gap 13.1 mEq/L (5-15); Aspartate Amino Transferase 34 U/L (17-59); Bilirubin,Total 0.3 mg/dl (0.2-1.3); Blood Urea Nitrogen 22 mg/dl (9-20); Calcium 9.3 mg/dl (8.4-10.2); Carbon Dioxide 24 mmol/L (22.0-30.0); Creatinine Clearance Estimated 47 mL/min (50-200); Estimated Glomerular Filt Rate 64 ml/min (>60); GFR (African American) 78 ML/MIN (>60); Globulin 3.3 g/dL (1.3-3.2); Glucose 156 mg/dl (74-100); Total Protein,Serum 6.6 g/dl (6.3-8.2)
--- NOTE | 2020-07-08 00:19 | XR_ITS ---
PROCEDURE: XR CHEST PORTABLE CLINICAL HISTORY: SOA Shortness of air COMPARISON: CT CHW CT CHEST W/ CONTRAST from 06/08/2016 CR CXR2 XR chest AP from 05/18/2018 CR CXR1VP XR chest portable from 08/05/2018 CR CXR2 XR chest AP from 11/06/2018 FINDINGS: There is cardiomegaly without failure. Opacification is present in the left lung base consistent with pneumonia or volume loss. Vascular crowding is present in right lung base Old right humeral neck fracture. IMPRESSION: Left lower lobe consolidation consistent with pneumonia and/or volume loss Dictated by: Jimbo Sparks MD 07/08/2020 05:33 Jimbo Sparks MD in [place] 07/08/2020 05:33
[2020-07-08 00:25] LABS: Troponin I 0.07 ng/ml (0.00-0.034)
[2020-07-08 00:47] LABS: Coronavirus 19 IgG Antibody Positive (Negative); Coronavirus 19 IgM Antibody Positive (Negative)
[2020-07-08 01:19] LABS: Lymphocytes % 2 % (10-50); Macrocytosis 1+; Monocytes % 2 % (2-9); Neutrophils % 96 % (42-76); Platelet Estimate Normal; Total Cells Counted 100
[2020-07-08 01:20] LABS: Procalcitonin 0.324 ng/mL (0.0-2.0)
[2020-07-08 01:20] LABS: Lactic Acid 3.4 mmol/L (0.7-2.1)
[2020-07-08 01:21] LABS: Erythrocyte Sedimentation Rate 123 mm/hr (0-20)
[2020-07-08 01:29] LABS: Appearance,Urine CLEAR (Clear); Bilirubin,Urine Negative (Negative); Blood, Urine 3+ (Negative); Color,Urine YELLOW (Yellow); Glucose,Urine (UA) Negative (Negative); Ketones,Urine Negative (Negative); Leukocyte Esterase,Urine 1+ (Negative); Nitrate,Urine Negative (Negative); Protein,Urine Negative (Negative); Specific Gravity, Urine 1.025 (1.005-1.030); Urobilinogen,Urine 0.2 EU/dl (0.2)
[2020-07-08 01:37] LABS: Coronavirus 19, PCR Detected (NotDetected)
[2020-07-08 01:55] LABS: Bacteria,Urine 1+ /lpf; Mucus,Urine 1+ /lpf
--- NOTE | 2020-07-08 02:12 | PC.NURSE ---
speaking to dr. ojeda at this time
[2020-07-08 03:19] LABS: Troponin I 1.98 ng/ml (0.00-0.034)
[2020-07-08 03:20] LABS: Reflex Lactic Add Lactic Reflex
--- NOTE | 2020-07-08 03:22 | PC.NURSE ---
PT ARRIVED TO THE FLOOR VIA STRETCHER FROM ED WITH STAFF AT [id number]
[2020-07-08 03:28] LABS: NT Pro Brain Natriuretic Pep. 1480 pg/mL (0-450)
[2020-07-08 03:31] LABS: Lactic Acid Follow Up (RFLX 1) 2.2 mmol/L (0.7-2.1)
[2020-07-08 05:07] LABS: Reflex Lactic (2 hrs) Add Lactic Reflex
[2020-07-08 06:50] LABS: Basophils % 0.2 % (0.1-2.0); Eosinophils % 0.3 % (0.1-12.0); Hematocrit 27.9 % (42.0-52.0); Lymphocytes # 0.8 K/mm3 (0.7-4.5); Lymphocytes % 6.4 % (10-50); Mean Corpuscular HGB Conc 31.5 g/dL (31.8-35.4); Mean Corpuscular Hemoglobin 32.1 pg (27.0-31.2); Mean Corpuscular Volume 101.9 fl (80-94); Mean Platelet Volume 7.9 fl (7.4-10.4); Monocytes # 0.4 K/mm3 (0.1-1.0); Monocytes % 2.9 % (1.7-9.3); Neutrophils # 11.5 K/mm3 (1.8-7.8); Neutrophils % 90.2 % (37.0-80.0); Platelet Count 219 K/mm3 (142-424); Red Blood Count 2.74 M/mm3 (4.60-6.20); Red Cell Distribution Width 15.8 % (11.5-17.5); White Blood Count 12.8 K/mm3 (4.8-10.8)
--- NOTE | 2020-07-08 06:55 | HMH.HP ---
*Admission Date: 07/08/20 *Chief complaint: SOA, hypotension *History of present illness: Mr. Gabriel is an 80-year-old gentleman well-known to our office as we care for him at his shelter who presented with acute respiratory failure last night. He was diagnosed earlier in May with COVID-19 and admitted managed well in the shelter setting. Developed worsening hypoxia, hypotension, and confusion yesterday at his shelter. They contacted us qm consultant, permission was given to bring patient to the ER for further assessment. On arrival he was found to be tachycardic, tachypneic, hypotensive, hypoxic, and severely ill. Work-up with finding of worsening infiltrate on chest imaging suspicious for pneumonia. Elevated lactate on labs. Met criteria for sepsis. Admitted and initiated on broad-spectrum antibiotics. Blood pressure improved overnight with fluid bolus and initiation of pneumonia treatment. On assessment this morning patient is alert but disoriented to place and time. States he feels bad all over but cannot verbalize further. Denies chest pain or nausea, difficulty obtaining further review of systems. Stable on 4 L nasal cannula oxygen [facility] History I have reviewed the patient's past medical history: Yes Medical History: Reports:: Aneurysm, Atherosclerotic Heart Disease, BPH, Congestive Heart Failure, Chronic Obstructive Pulmonary Disease (COPD), Coronary Artery Disease, Dementia, Hyperlipidemia, Hypertension, Kidney Stones, Myocardial Infarction, Peripheral Vascular Disease Denies:: Cancer, Diabetes Mellitus Type 1, Diabetes Mellitus Type 2, Internal Pacemaker, MRSA *Have you ever received a pneumonia vaccine?: No *Have you received a flu vaccine this season?: No (unable to answer) Other Medical History: Reports: Anemia, Arthritis Laterality Cases: Right: Arthroscopy Hip, Arthroscopy Shoulder Other Surgeries: Yes: No Previous Surgery, Cardiac Catheterization, Coronary Stent, Other. No: Pacemaker Amputation: No Fractures: Yes (right humerus and ulna) - *Social History Smoking Status: Former smoker Tobacco Type: cigarettes # Packs/Day (cigarettes): 1 #Yrs smoked (if former smoker): 70 Alcohol Intake: never Alcohol Intake Frequency:: other Substance Use Type: denies use *Occupational Status:: disabled Housing: shelter Household Members: other *Travel in the last 8 weeks: None Family Hx:: Unable to obtain Review of Systems - Review of Systems Review of systems:: pertinent systems reviewed and negative unless documented below (14 point review of systems performed, pertinent positives and negatives as per HPI) Meds Home Medications Medication Instructions Recorded Confirmed Type Atorvastatin Calcium [Lipitor 80mg 80 mg PO HS 03/03/18 07/08/20 History Tab] Ferrous Sulfate 325 mg PO BID 03/03/18 07/08/20 History Finasteride [Proscar 5mg Tablet] 5 mg PO DAILY 03/03/18 07/08/20 History Escitalopram Oxalate [Lexapro] 20 mg PO DAILY 08/05/18 07/08/20 History Saccharomyces Boulardii [Probiotic] 250 mg PO DAILY 08/05/18 07/08/20 History Calcium Carbonate/Vitamin D3 1 each PO DAILY 11/06/18 07/08/20 History [Oyster Shell-D 250 mg Tablet] Donepezil HCl [Aricept 10mg 10 mg PO HS 11/06/18 07/08/20 History tablet] Fluticasone/Vilanterol [Breo 1 puff IH HS 11/06/18 07/08/20 History Ellipta 100-25 Mcg INH] Mirtazapine 7.5 mg PO HS 11/06/18 07/08/20 History Acetaminophen [Acetaminophen 325mg 1,000 mg PO BID 11/17/18 07/08/20 History tab] Cholecalciferol (Vitamin D3) 4,000 unit PO DAILY 07/08/20 07/08/20 History [Vitamin D3] Memantine HCl [Namenda 10mg 10 mg PO BID 07/08/20 07/08/20 History Tablet] Nitroglycerin [Nitrostat 0.4mg SL 0.4 mg SL Q5MINP PRN 07/08/20 07/08/20 History Tablet] Pantoprazole Sodium [Protonix 40mg 40 mg PO BID 07/08/20 07/08/20 History tablet] Potassium Chloride [Klor-Con M10] 20 meq PO DAILY 07/08/20 07/08/20 History Quetiapine Fumarate [Seroque
[2020-07-08 07:00] LABS: Lactic Acid Follow up (RFLX 2) 2.7 mmol/L (0.7-2.1)
[2020-07-08 07:01] LABS: Anion Gap 10.6 mEq/L (5-15); Blood Urea Nitrogen 24 mg/dl (9-20); Calcium 8.5 mg/dl (8.4-10.2); Carbon Dioxide 23 mmol/L (22.0-30.0); Chloride 109 mmol/L (98-107); Creatinine Clearance Estimated 58 mL/min (50-200); Estimated Glomerular Filt Rate 72 ml/min (>60); GFR (African American) 87 ML/MIN (>60); Glucose 129 mg/dl (74-100); Magnesium 1.4 mg/dl (1.6-2.3); Potassium 4.6 mmoL/L (3.5-5.1); Sodium 138 mmol/L (136-145)
[2020-07-08 07:14] LABS: Hemoglobin 8.8 g/dL (14.1-18.0)
[2020-07-08 07:17] LABS: Troponin I 5.39 ng/ml (0.00-0.034)
--- NOTE | 2020-07-08 08:19 | HMH.PHAVTE ---
[facility] Pharmacy VTE Monitoring - Patient Demographics Admission date: 07/07/20 Report Date: 07/08/20 Time: 08:19 Allergies/Adverse Reactions: Patient Allergies Sulfa (Sulfonamide Antibiotics) [SULFA (SULFONAMIDE ANTIBIOTICS)] Allergy (Unknown, Verified 07/08/20 04:34) Height: 1.73 m Weight: 72.575 kg Patient Problems: Current Active Problems HCAP (healthcare-associated pneumonia) (Acute) Severe sepsis with acute organ dysfunction (Acute) COVID-19 virus detected (Acute) COVID-19 virus IgG antibody detected (Acute) COVID-19 virus IgM antibody detected (Acute) Respiratory failure with hypoxia (Acute) Anemia (Acute) - VTE Risk Labs: VTE Related Lab Results Hgb 8.8 g/dL (14.1-18.0) L D 07/08/20 06:23 Hct 27.9 % (42.0-52.0) L 07/08/20 06:23 Plt Count 219 K/mm3 (142-424) 07/08/20 06:23 BUN 24 mg/dl (9-20) H 07/08/20 06:23 Creatinine 1.00 mg/dl (0.66-1.25) 07/08/20 06:23 Estimated Creat Clear 58 mL/min (50-200) 07/08/20 06:23 VTE Score: 4 VTE Risk Level: Low Risk - Prophylaxis VTE Prophylaxis Ordered?: Yes Types of VTE Prophylaxis: TEDS Knee High Location of Applied Device: Bilateral Lower Extremeties
--- NOTE | 2020-07-08 08:42 | HMH.PHAINT ---
PATIENT WILL NOT GET REMDESIVIR PER DR HANSEN. DIAGNOSED WITH COVID ON 06/05/20.
--- NOTE | 2020-07-08 08:58 | HMH.PHAINT ---
MEDICATION RECONCILIATION COMPLETED ON PATIENT USING MAR FROM [facility]. -SANNA FRANKLIN, LEVARD
--- NOTE | 2020-07-08 10:08 | ECG_ITS ---
APPROVED REPORT Exam: Resting ECG HR:83 bpm ECG Measurements Heart Rate 83 AXES MO 282 P 57 QRSd 94 QRS -20 QT 402 T 52 QTc 472 Conclusion Sinus rhythm with 1st degree AV block Low voltage QRS Inferior infarct, age undetermined Cannot rule out Anteroseptal infarct, age undetermined Abnormal ECG Electronically signed by : Julio Connors, 07/10/2020 19:32:47
--- NOTE | 2020-07-08 11:14 | PC.NURSE ---
notified md blake of troponin level this am during rounds.
--- NOTE | 2020-07-08 14:19 | PC.NURSE ---
Discussed with Eddie MESA pt unable to follow verbal commands to obtain a sputum sample. Unable to give treatment to induce due to Pt being Covid 19 positive.
[2020-07-08 16:50] LABS: Chloride 110 mmol/L (98-107); Potassium 4.3 mmoL/L (3.5-5.1); Sodium 139 mmol/L (136-145)
[2020-07-08 16:53] LABS: Anion Gap 9.3 mEq/L (5-15); Blood Urea Nitrogen 29 mg/dl (9-20); Carbon Dioxide 24 mmol/L (22.0-30.0); Creatinine Clearance Estimated 58 mL/min (50-200); Estimated Glomerular Filt Rate 72 ml/min (>60); GFR (African American) 87 ML/MIN (>60)
[2020-07-08 16:54] LABS: Calcium 8.4 mg/dl (8.4-10.2); Glucose 103 mg/dl (74-100)
[2020-07-08 17:07] LABS: Troponin I 5.16 ng/ml (0.00-0.034)
--- NOTE | 2020-07-08 20:35 | PC.NURSE ---
PT HAS BEEN CONFUSED T/O SHIFT, TOLERATING 3LNC FOR O2 SUPPORT. PT WAS ABLE TO TAKE PO MEDS ONE AT A TIME AND FOLLOW COMMANDS WHEN DOING SO. HE HAS BEEN INCONTINENT OF BOWEL AND BLADDER. MISHRA CATH IN PLACE DRAINING CLEAR YELLOW URINE. NO NEEDS AT THIS TIME.
[2020-07-09] VITALS: BP 92/52; PULSE 80; PULSE 84; RESP 19; TEMP 37.1; O2SAT 90
[2020-07-09 04:00] VITALS: BP 99/64; PULSE 70; PULSE 88; RESP 21; TEMP 36.8; O2SAT 90
[2020-07-09 05:00] VITALS: BMI 23.6
--- NOTE | 2020-07-09 05:35 | PC.NURSE ---
Pt has been confused throughout shift, but will follow commands and swallows pills. Pt has been on 4L NC through the night with sats in the low 90s. Lung sounds are diminished with crackles in the lower bases, with a nonproductive cough. Pt is incontinent of bowel and bladder. Connolly has been draining clear yellow urine. Pt had one episode of very dark green liquid diarrhea. Pt coccyx had an large area of redness, with a smaller darker red, nonblanchable area in the center. Pictures were obtained, mepilex in place. Pt has been turned q2h. VSS, call light in reach. no concerns at this time.
[2020-07-09 06:53] LABS: Basophils % 0.2 % (0.1-2.0); Eosinophils % 0.4 % (0.1-12.0); Hemoglobin 8.3 g/dL (14.1-18.0); Lymphocytes # 1.3 K/mm3 (0.7-4.5); Lymphocytes % 12.8 % (10-50); Mean Corpuscular HGB Conc 30.8 g/dL (31.8-35.4); Mean Corpuscular Hemoglobin 32.2 pg (27.0-31.2); Mean Corpuscular Volume 104.7 fl (80-94); Mean Platelet Volume 8.1 fl (7.4-10.4); Monocytes # 0.3 K/mm3 (0.1-1.0); Neutrophils # 8.3 K/mm3 (1.8-7.8); Neutrophils % 83.6 % (37.0-80.0); Platelet Count 207 K/mm3 (142-424); Red Blood Count 2.58 M/mm3 (4.60-6.20); Red Cell Distribution Width 15.8 % (11.5-17.5)
[2020-07-09 07:29] LABS: Alanine Aminotransferase 17 U/L (12-78); Albumin Level 2.5 g/dl (3.5-5.0); Albumin/Globulin Ratio 0.8 (1.1-1.8); Alkaline Phosphatase 123 U/L (38-126); Anion Gap 8.7 mEq/L (5-15); Aspartate Amino Transferase 42 U/L (17-59); Bilirubin,Total 0.4 mg/dl (0.2-1.3); Blood Urea Nitrogen 28 mg/dl (9-20); Calcium 8.2 mg/dl (8.4-10.2); Carbon Dioxide 25 mmol/L (22.0-30.0); Chloride 107 mmol/L (98-107); Creatinine Clearance Estimated 57 mL/min (50-200); Estimated Glomerular Filt Rate 72 ml/min (>60); GFR (African American) 87 ML/MIN (>60); Glucose 87 mg/dl (74-100); Magnesium 1.9 mg/dl (1.6-2.3); Potassium 3.7 mmoL/L (3.5-5.1); Sodium 137 mmol/L (136-145); Total Protein,Serum 5.5 g/dl (6.3-8.2)
[2020-07-09 08:00] VITALS: BP 120/96; PULSE 66; PULSE 68; RESP 20; RESP 24; TEMP 36.2; O2SAT 75; O2SAT 97
--- NOTE | 2020-07-09 08:25 | PC.WOUNDNOTE ---
Wound Location: buttocks, coccyx Redness
--- NOTE | 2020-07-09 08:31 | HMH.ACPN2 ---
Internal Medicine - PN: Subj *Date: 07/09/20 *Time: 08:31 Interval history: Overnight patient did fairly well. Improving white counts, improving vital signs. Exam Vital signs and Labs for Last 24 Hours: Temp Pulse Resp BP Pulse Ox 98.3 F 88 21 99/64 L 90 L 07/09/20 04:00 07/09/20 04:00 07/09/20 04:00 07/09/20 04:00 07/09/20 04:00 Laboratory Results - last 24 hr 07/08/20 16:20: Sodium 139, Potassium 4.3, Chloride 110 H, Carbon Dioxide 24, Anion Gap 9.3, BUN 29 H, Creatinine 1.00, Estimated Creat Clear 58, Estimated GFR 72, Est GFR ( Amer) 87, Glucose 103 H D, Calcium 8.4, Troponin I 5.16 H 07/09/20 05:52: WBC 10.0, RBC 2.58 L, Hgb 8.3 L, Hct 27.0 L, MCV 104.7 H, MCH 32.2 H, MCHC 30.8 L, RDW 15.8, Plt Count 207, MPV 8.1, Neut % (Auto) 83.6 H, Lymph % (Auto) 12.8, [place] % (Auto) 3.0, Eos % (Auto) 0.4, Baso % (Auto) 0.2, Neut # (Auto) 8.3 H, Lymph # (Auto) 1.3, [place] # (Auto) 0.3, Eos # (Auto) 0.0, Baso # (Auto) 0.0 07/09/20 05:52: Sodium 137, Potassium 3.7, Chloride 107, Carbon Dioxide 25, Anion Gap 8.7, BUN 28 H, Creatinine 1.00, Estimated Creat Clear 57, Estimated GFR 72, Est GFR ( Amer) 87, Glucose 87, Calcium 8.2 L, Magnesium 1.9 D, Total Bilirubin 0.4, AST 42, ALT 17, Alkaline Phosphatase 123, Total Protein 5.5 L, Albumin 2.5 L D, Globulin 3.0, Albumin/Globulin Ratio 0.8 L I & O for Last 24 hours: Intake & Output 07/06/20 07/07/20 07/08/20 07/09/20 11:59 11:59 11:59 11:59 Intake Total 240 / 240 240 / 240 Output Total 800 / 800 Balance 240 / 240 -560 / -560 Weight 160 lb 156 lb 5 oz Microbiology Reports for the Last 24 Hours: Microbiology 07/08/20 00:00 Urine,Clean Catch Urine Culture - Preliminary NO GROWTH AFTER 24 HOURS Narrative: Patient is alert, somewhat noncommunicative but at his baseline. Lungs have some scattered rhonchi but fairly good air entry. Heart rate regular. Abdomen is soft, Abdomen soft, nontender, good distal perfusion. Assessment and Plan (1) Severe sepsis Status: Acute Category: Medical Code(s): A41.9 - Sepsis, unspecified organism; R65.20 - Severe sepsis without septic shock (2) Hypomagnesemia Status: Acute Category: Medical Code(s): E83.42 - Hypomagnesemia (3) Acute hypoxemic respiratory failure due to COVID-19 Status: Acute Category: Medical Code(s): U07.1 - COVID-19; J96.01 - Acute respiratory failure with hypoxia (4) HCAP (healthcare-associated pneumonia) Status: Acute Category: Medical Code(s): J18.9 - Pneumonia, unspecified organism (5) Dementia Status: Chronic Qualifiers: Dementia type: Alzheimer's disease Alzheimer's disease onset: late-onset Dementia behavioral disturbance: with behavioral disturbance Category: Medical Code(s): F03.90 - Unspecified dementia without behavioral disturbance (6) Hypertension Status: Chronic Qualifiers: Hypertension type: essential hypertension Qualified Code(s): I10 - Essential (primary) hypertension Category: Medical Code(s): I10 - Essential (primary) hypertension (7) Elevated troponin Status: Acute Category: Medical Code(s): R77.8 - Other specified abnormalities of plasma proteins (8) UTI (urinary tract infection) Status: Acute Category: Medical Code(s): N39.0 - Urinary tract infection, site not specified - Assessment and plan all Dx Assessment and Plan for all problems:: Patient has post viral care home acquired pneumonia with sepsis. Continue current antibiotic therapy and sepsis protocol. Respect DNR status.
--- NOTE | 2020-07-09 09:33 | PC.NURSE ---
Addendum entered by Anastasiia Estrella RN 07/09/20 16:14: 0930 - RN rechecked pt's O2 sat w/ alternate pulse ox, fingers noted to be cool to touch. SPO2 noted to be 97% w/ recheck. Pt easily aroused during this time. Original Note: RN aware of low O2
[2020-07-09 12:00] VITALS: BP 101/49; PULSE 65; RESP 22; TEMP 36.4; O2SAT 95
[2020-07-09 13:26] VITALS: BMI 23.7
--- NOTE | 2020-07-09 14:57 | PC.NURSE ---
Addendum entered by Anastasiia Estrella RN 07/09/20 16:13: Pt O2 sat 97% on 3 L, titrated down to 2 L per nasal cannula. Original Note: Rested at intervals this shift. O2 has been titrated to 3 L O2 per nasal cannula thus far, maintaining sat > 90%. Occasional dry hacking cough noted. Lungs w/ scattered ronchi throughout. HR regular. Abdomen soft, non-tender w/ active BS in all quads. Connolly cath to drain at bedside. Connolly care provided by staff. No BM this shift. Small ulcer to coccyx covered w/ dressing, C/D/I. Turned and repositioned Q2H. Oral care provided. Teds in place to BLE. Pt is pleasantly confused. No needs @ this time. Bed alarm in place. Call block w/in reach.
[2020-07-09 16:00] VITALS: BP 135/51; PULSE 69; RESP 20; TEMP 36.5; O2SAT 95
[2020-07-09 20:00] VITALS: BP 123/55; PULSE 67; RESP 18; TEMP 36.8; O2SAT 92
[2020-07-10] VITALS (10 sets, daily range): BP systolic 102–123; BP diastolic 50–69; PULSE 72–88; RESP 20–24; TEMP 36.6–37.1; O2SAT 83–96; BMI 24.1
--- NOTE | 2020-07-10 05:28 | PC.NURSE ---
Pt has been asleep for the majority of the shift. Alert to person only. No complaints of pain or SOA. Pt is currently receiving O2 via NC @ 2 LPM with sats. >90%. Lung sounds reveal rhonchi bilaterally throughout. No edema noted. Pt has been turned/repositioned Q2H this shift. F/C is patent and draining clear, yellow urine at bedside to gravity. No BM thus far this shift. 20 G peripheral IV in the LT AC is patent and infusing NS @ 100 ML/HR. VSS. Call light within reach. Will continue to monitor.
--- NOTE | 2020-07-10 06:29 | SW/DCPLANNER ---
Addendum entered by Soha Issa 07/11/20 09:54: INFORMED [facility] THAT HE MAY RETURN BACK THERE OVER THE WEEKEND... Original Note: PATIENT ADMITTED TO [facility] FROM [facility] WITH ACUTE RESPIRATORY FAILURE AND HYPOXIA...HE HAD A RECENT ILLNESS OF COVID 19 BUT DID WELL BEING TREATED AT THE FACILITY.. I CALLED THE FACILITY TO CHECK ON BEDHOLD FOR HIM AND HE IS ON A BEDHOLD UNDER MEDICAID BENEFITS... I TALK WITH THEM DAILY TO KEEP THEM UPDATED ON HIS PROGESS, HE MAY BE ABLE TO RETURN BACK THERE TODAY AFTER MD ROUNDS IF PATIENT IS MEDICALLY STABLE...
[2020-07-10 07:36] LABS: Basophils % 0.2 % (0.1-2.0); Eosinophils # 0.1 K/mm3 (0.0-0.4); Eosinophils % 0.8 % (0.1-12.0); Hematocrit 25.1 % (42.0-52.0); Lymphocytes # 0.9 K/mm3 (0.7-4.5); Lymphocytes % 9.9 % (10-50); Mean Corpuscular HGB Conc 31.9 g/dL (31.8-35.4); Mean Corpuscular Volume 100.4 fl (80-94); Mean Platelet Volume 8.2 fl (7.4-10.4); Monocytes # 0.4 K/mm3 (0.1-1.0); Neutrophils # 7.9 K/mm3 (1.8-7.8); Neutrophils % 85.1 % (37.0-80.0); Platelet Count 190 K/mm3 (142-424); Red Blood Count 2.51 M/mm3 (4.60-6.20); Red Cell Distribution Width 15.3 % (11.5-17.5); White Blood Count 9.2 K/mm3 (4.8-10.8)
[2020-07-10 07:41] LABS: Anion Gap 7.7 mEq/L (5-15); Blood Urea Nitrogen 21 mg/dl (9-20); Calcium 8.1 mg/dl (8.4-10.2); Carbon Dioxide 26 mmol/L (22.0-30.0); Chloride 108 mmol/L (98-107); Creatinine Clearance Estimated 58 mL/min (50-200); Estimated Glomerular Filt Rate 93 ml/min (>60); GFR (African American) 112 ML/MIN (>60); Glucose 85 mg/dl (74-100); Potassium 3.7 mmoL/L (3.5-5.1); Sodium 138 mmol/L (136-145)
[2020-07-10 08:16] LABS: MANUAL DIFFERENTIAL MANUAL DIFFERENTIAL (MANUAL DIFF)
--- NOTE | 2020-07-10 08:29 | XR_ITS ---
PROCEDURE: XR CHEST PORTABLE CLINICAL HISTORY: worsening O2 sats COMPARISON: CT CHW CT CHEST W/ CONTRAST from 06/08/2016 CR CXR1VP XR chest portable from 08/05/2018 CR CXR2 XR chest AP from 11/06/2018 CR XR CHEST PORTABLE from 07/08/2020 FINDINGS: The heart size is normal. No evidence of CHF. There is increased density in both lower lobes with obliteration of the left hemidiaphragm consistent with bilateral lower lobe pneumonia and/or volume loss which appears slightly worse on the right. Old right humeral fracture. IMPRESSION: Worsening right lower lobe pneumonia and/or atelectatic change with persistent consolidation in the left lower lobe. Dictated by: Jimbo Sparks MD 07/10/2020 10:42 Jimbo Sparks MD in OV 07/10/2020 10:42
--- NOTE | 2020-07-10 08:31 | HMH.ACPN2 ---
Internal Medicine - PN: Subj *Date: 07/10/20 *Time: 08:31 Interval history: Overnight patient did somewhat more poorly. He has been rather obtunded compared to yesterday in regards to verbal communication. Nursing staff has had to increase his oxygen levels because of O2 saturations in the high 70s. He is currently on 4 L with O2 saturation 93%. Exam Vital signs and Labs for Last 24 Hours: Temp Pulse Resp BP Pulse Ox 98.6 F 84 22 102/50 L 92 L 07/10/20 07:26 07/10/20 07:26 07/10/20 07:26 07/10/20 07:26 07/10/20 08:19 Laboratory Results - last 24 hr 07/10/20 07:15: WBC 9.2, RBC 2.51 L, Hgb 8.0 L, Hct 25.1 L, MCV 100.4 H, MCH 32.0 H, MCHC 31.9, RDW 15.3, Plt Count 190, MPV 8.2, Neut % (Auto) 85.1 H, Lymph % (Auto) 9.9 L, [place] % (Auto) 4.0, Eos % (Auto) 0.8, Baso % (Auto) 0.2, Neut # (Auto) 7.9 H, Lymph # (Auto) 0.9, [place] # (Auto) 0.4, Eos # (Auto) 0.1, Baso # (Auto) 0.0 07/10/20 07:15: Sodium 138, Potassium 3.7, Chloride 108 H, Carbon Dioxide 26, Anion Gap 7.7, BUN 21 H, Creatinine 0.80, Estimated Creat Clear 58, Estimated GFR 93, Est GFR ( Amer) 112 D, Glucose 85, Calcium 8.1 L I & O for Last 24 hours: Intake & Output 07/07/20 07/08/20 07/09/20 07/10/20 11:59 11:59 11:59 11:59 Intake Total 240 / 240 300 / 300 2756 / 2756 Output Total 800 / 800 1200 / 1200 Balance 240 / 240 -500 / -500 1556 / 1556 Weight 160 lb 156 lb 5 oz 159 lb 8 oz Microbiology Reports for the Last 24 Hours: Microbiology 07/07/20 23:07 Blood Blood Culture - Preliminary NO GROWTH AFTER 48 HOURS 07/07/20 23:07 Blood Blood Culture - Preliminary NO GROWTH AFTER 48 HOURS 07/08/20 00:00 Urine,Clean Catch Urine Culture - Final NO GROWTH AFTER 48 HOURS Narrative: Somewhat more obtunded, otherwise in no significant respiratory distress, breathing very shallowly but without tachypnea. Heart rate regular. Oropharynx clear, no JVD. Extremity exam unchanged. Neurologic exam shows that he will respond to voice but will not really engage in communication and goes back to sleep. Soft, nontender Assessment and Plan (1) Severe sepsis Status: Acute Category: Medical Code(s): A41.9 - Sepsis, unspecified organism; R65.20 - Severe sepsis without septic shock (2) Hypomagnesemia Status: Acute Category: Medical Code(s): E83.42 - Hypomagnesemia (3) Acute hypoxemic respiratory failure due to COVID-19 Status: Acute Category: Medical Code(s): U07.1 - COVID-19; J96.01 - Acute respiratory failure with hypoxia (4) HCAP (healthcare-associated pneumonia) Status: Acute Category: Medical Code(s): J18.9 - Pneumonia, unspecified organism (5) Dementia Status: Chronic Qualifiers: Dementia type: Alzheimer's disease Alzheimer's disease onset: late-onset Dementia behavioral disturbance: with behavioral disturbance Category: Medical Code(s): F03.90 - Unspecified dementia without behavioral disturbance (6) Hypertension Status: Chronic Qualifiers: Hypertension type: essential hypertension Qualified Code(s): I10 - Essential (primary) hypertension Category: Medical Code(s): I10 - Essential (primary) hypertension (7) Elevated troponin Status: Acute Category: Medical Code(s): R77.8 - Other specified abnormalities of plasma proteins (8) UTI (urinary tract infection) Status: Acute Category: Medical Code(s): N39.0 - Urinary tract infection, site not specified (9) Anemia, chronic disease Status: Acute Category: Medical Code(s): D63.8 - Anemia in other chronic diseases classified elsewhere (10) Hypocalcemia Status: Acute Category: Medical Code(s): E83.51 - Hypocalcemia - Assessment and plan all Dx Assessment and Plan for all problems:: #1. Respiratory status declining-probably combination of post Covid pneumonitis and his assisted acquired lobar pneu
[2020-07-10 10:19] LABS: Lymphocytes % 17 % (10-50); Monocytes % 6 % (2-9); Neutrophils % 77 % (42-76); Platelet Estimate Normal; RBC Morphology Normal; Total Cells Counted 100
--- NOTE | 2020-07-10 21:14 | PC.NURSE ---
AT 800 VITALS THIS RN WAS INFORMED THAT PATIENTS O2 WAS 84. THIS RN ASSESSED PATIENT, FOUND SENSOR NOT WORKING. THIS RN ASSESSED WITH A PORTAL O2 SENSOR, O2 WAS 91% ON 4L NC. THIS RN CHECKED O2 STATS WITH EACH MEDICATION ADMINISTRATION AND EACH ADL. DURING ONE OF THE ASSESSMENTS, THIS RN FOUND PATIENT WITHOUT HIS NC ON. THIS RN PLACED THE NC BACK INTO PLACE AND REASSESSED PATIENT O2, PATIENT WAS AT 88%. THIS RN INCREASED O2 TO 5L PATIENT REMAINED AT 91%-94% ON 5L NC. DURING LAST ADL CHECK, THIS RN FOUND PATIENT WITHOUT HIS NC ON. STATS WERE AT 82%, THIS RN APPLIED NC AND EDUCATED PATIENT THE IMPORTANCE OF KEEPING HIS O2 ON. PATIENT MUMBLED A RESPONSE. THIS RN REASSESSED HIS O2, STAT WAS 84% ON NC 5L. THIS RN INFORMED RT, RT PLACED PATIENT ON A VENTI MASK AT 12L. THIS RN REASSESSED O2 AND FOUND PATIENT AT 77%. THIS RN INFORMED RT, PATIENT WAS PLACED ON 40% 15L. THIS RN REASSESSED AND FOUND PATIENT TO BE AT 84%. THIS RN NOTIFIED RT AND PATIENT WAS PLACE ON A NON RE-BREATHER.
[2020-07-11] VITALS (7 sets, daily range): BP systolic 100–123; BP diastolic 50–65; PULSE 62–87; RESP 16–24; TEMP 36.8–37.1; O2SAT 90–98; BMI 24.0
--- NOTE | 2020-07-11 04:31 | PC.NURSE ---
Pt has been asleep for the majority of the shift. Alert to person and place only. No complaints of pain or SOA. At the beginning of this shift pt was receiving O2 @ 15 LPM via a non-rebreather. Pt continuously removed the non-rebreather and stated that he didn't want to wear it. Pt was placed on a NC @ 6 LPM and sats. have remained >90% thus far. Pt is currently agreeing to keep the NC in place. Lung sounds reveal expiratory rhonchi. Reddened area noted to Coccyx with Allevyn dressing in place. No edema noted. Pt has been turned/repositioned Q2H this shift. F/C is patent and draining clear, yellow urine at bedside to gravity. No BM thus far this shift. 20 G peripheral IV in the LT AC is patent and infusing NS @ 100 ML/HR. VSS. Call light within reach. Will continue to monitor.
[2020-07-11 06:22] LABS: Basophils % 0.2 % (0.1-2.0); Eosinophils # 0.1 K/mm3 (0.0-0.4); Hematocrit 25.1 % (42.0-52.0); Hemoglobin 8.1 g/dL (14.1-18.0); Lymphocytes % 14.5 % (10-50); Mean Corpuscular HGB Conc 32.3 g/dL (31.8-35.4); Monocytes # 0.4 K/mm3 (0.1-1.0); Monocytes % 5.8 % (1.7-9.3); Neutrophils # 5.6 K/mm3 (1.8-7.8); Neutrophils % 78.5 % (37.0-80.0); Platelet Count 191 K/mm3 (142-424); Red Blood Count 2.54 M/mm3 (4.60-6.20); Red Cell Distribution Width 15.3 % (11.5-17.5); White Blood Count 7.2 K/mm3 (4.8-10.8)
[2020-07-11 06:37] LABS: Anion Gap 8.3 mEq/L (5-15); Blood Urea Nitrogen 20 mg/dl (9-20); Calcium 8.5 mg/dl (8.4-10.2); Carbon Dioxide 29 mmol/L (22.0-30.0); Chloride 104 mmol/L (98-107); Creatinine Clearance Estimated 58 mL/min (50-200); Estimated Glomerular Filt Rate 93 ml/min (>60); GFR (African American) 112 ML/MIN (>60); Glucose 92 mg/dl (74-100); Potassium 3.3 mmoL/L (3.5-5.1); Sodium 138 mmol/L (136-145)
--- NOTE | 2020-07-11 06:41 | HMH.ACPN2 ---
Internal Medicine - PN: Subj *Date: 07/11/20 *Time: 08:15 Interval history: Mr. Granger was comfortable supine in bed this morning asleep on first assessment. Stable on 6 L nasal cannula. Hemodynamically stable with normal blood pressure. Reviewed labs this morning, improved from admission. Stated he felt he needed to urinate, otherwise had no significant complaints. Has been eating 25 to 50% of his trays for the past 24 hours. Exam Vital signs and Labs for Last 24 Hours: Temp Pulse Resp BP Pulse Ox 98.4 F 71 24 108/56 L 92 L 07/11/20 04:00 07/11/20 04:00 07/11/20 04:00 07/11/20 04:00 07/11/20 04:00 Laboratory Results - last 24 hr 07/10/20 07:15: WBC 9.2, RBC 2.51 L, Hgb 8.0 L, Hct 25.1 L, MCV 100.4 H, MCH 32.0 H, MCHC 31.9, RDW 15.3, Plt Count 190, MPV 8.2, Neut % (Auto) 85.1 H, Lymph % (Auto) 9.9 L, [place] % (Auto) 4.0, Eos % (Auto) 0.8, Baso % (Auto) 0.2, Neut # (Auto) 7.9 H, Lymph # (Auto) 0.9, [place] # (Auto) 0.4, Eos # (Auto) 0.1, Baso # (Auto) 0.0, Total Counted 100, Neutrophils % (Manual) 77 H, Lymphocytes % (Manual) 17, Monocytes % (Manual) 6, Platelet Estimate Normal, RBC Morphology Normal 07/10/20 07:15: Sodium 138, Potassium 3.7, Chloride 108 H, Carbon Dioxide 26, Anion Gap 7.7, BUN 21 H, Creatinine 0.80, Estimated Creat Clear 58, Estimated GFR 93, Est GFR ( Amer) 112 D, Glucose 85, Calcium 8.1 L I & O for Last 24 hours: Intake & Output 07/08/20 07/09/20 07/10/20 07/11/20 23:59 23:59 23:59 23:59 Intake Total 360 / 360 1427 / 1427 2349 / 2349 1295 / 1295 Output Total 300 / 300 1000 / 1000 2850 / 2850 600 / 600 Balance 60 / 60 427 / 427 -501 / -501 695 / 695 Weight 72.575 kg 71 kg 72.348 kg 71.894 kg Narrative: Somewhat less somnolent today. Opens eyes to verbal stimuli, answers questions with soft voice. No significant respiratory distress, breathing very shallowly but without tachypnea. Heart rate regular. Oropharynx clear, no JVD. Extremity exam unchanged. No edema Neurologic exam improved with response to questions and making good eye contact. Connolly catheter in place draining clear urine Soft, nontender Assessment and Plan (1) Acute hypoxemic respiratory failure due to COVID-19 Status: Acute Category: Medical Code(s): U07.1 - COVID-19; J96.01 - Acute respiratory failure with hypoxia (2) Severe sepsis Status: Resolved Category: Medical Code(s): A41.9 - Sepsis, unspecified organism; R65.20 - Severe sepsis without septic shock (3) Hypomagnesemia Status: Acute Category: Medical Code(s): E83.42 - Hypomagnesemia (4) HCAP (healthcare-associated pneumonia) Status: Acute Category: Medical Code(s): J18.9 - Pneumonia, unspecified organism (5) Dementia Status: Chronic Qualifiers: Dementia type: Alzheimer's disease Alzheimer's disease onset: late-onset Dementia behavioral disturbance: with behavioral disturbance Category: Medical Code(s): F03.90 - Unspecified dementia without behavioral disturbance (6) Hypertension Status: Chronic Qualifiers: Hypertension type: essential hypertension Qualified Code(s): I10 - Essential (primary) hypertension Category: Medical Code(s): I10 - Essential (primary) hypertension (7) Elevated troponin Status: Acute Category: Medical Code(s): R77.8 - Other specified abnormalities of plasma proteins (8) UTI (urinary tract infection) Status: Acute Category: Medical Code(s): N39.0 - Urinary tract infection, site not specified (9) Anemia, chronic disease Status: Acute Category: Medical Code(s): D63.8 - Anemia in other chronic diseases classified elsewhere (10) Hypocalcemia Status: Acute Category: Medical Code(s): E83.51 - Hypocalcemia - Assessment and plan all Dx Assessment and Plan for all problems:: 80-year-old male resident of [facility], diagnosed with COVID-19 recently. Overall showing some slight improvement this morning. Estelle
--- NOTE | 2020-07-11 10:48 | P.PN_ITS ---
Internal Medicine - PN: Subj *Date: 07/11/20 *Time: 10:48 Exam Vital signs and Labs for Last 24 Hours: Temp Pulse Resp BP Pulse Ox 98.5 F 66 22 100/65 L 93 L 07/11/20 07:42 07/11/20 07:42 07/11/20 07:42 07/11/20 07:42 07/11/20 08:00 Laboratory Results - last 24 hr 07/11/20 05:30: WBC 7.2, RBC 2.54 L, Hgb 8.1 L, Hct 25.1 L, MCV 99.0 H, MCH 32.0 H, MCHC 32.3, RDW 15.3, Plt Count 191, MPV 8.0, Neut % (Auto) 78.5, Lymph % (Auto) 14.5, [place] % (Auto) 5.8, Eos % (Auto) 1.0, Baso % (Auto) 0.2, Neut # (Auto) 5.6, Lymph # (Auto) 1.0, [place] # (Auto) 0.4, Eos # (Auto) 0.1, Baso # (Auto) 0.0 07/11/20 05:30: Sodium 138, Potassium 3.3 L, Chloride 104, Carbon Dioxide 29, Anion Gap 8.3, BUN 20, Creatinine 0.80, Estimated Creat Clear 58, Estimated GFR 93, Est GFR ( Amer) 112, Glucose 92, Calcium 8.5 I & O for Last 24 hours: Intake & Output 07/08/20 07/09/20 07/10/20 07/11/20 23:59 23:59 23:59 23:59 Intake Total 360 / 360 1427 / 1427 2349 / 2349 1395 / 1395 Output Total 300 / 300 1000 / 1000 2850 / 2850 600 / 600 Balance 60 / 60 427 / 427 -501 / -501 795 / 795 Weight 72.575 kg 71 kg 72.348 kg 71.894 kg Assessment and Plan (1) Severe sepsis Status: Acute Category: Medical Code(s): A41.9 - Sepsis, unspecified organism; R65.20 - Severe sepsis without septic shock (2) Hypomagnesemia Status: Acute Category: Medical Code(s): E83.42 - Hypomagnesemia (3) Acute hypoxemic respiratory failure due to COVID-19 Status: Acute Category: Medical Code(s): U07.1 - COVID-19; J96.01 - Acute r espiratory failure with hypoxia (4) HCAP (healthcare-associated pneumonia) Status: Acute Category: Medical Code(s): J18.9 - Pneumonia, unspecified organism (5) Dementia Status: Chronic Qualifiers: Dementia type: Alzheimer's disease Alzheimer's disease onset: late-onset Dementia behavioral disturbance: with behavioral disturbance Category: Medical Code(s): F03.90 - Unspecified dementia without behavioral disturbance (6) Hypertension Status: Chronic Qualifiers: Hypertension type: essential hypertension Qualified Code(s): I10 - Essential (primary) hypertension Category: Medical Code(s): I10 - Essential (primary) hypertension (7) Elevated troponin Status: Acute Category: Medical Code(s): R77.8 - Other specified abnormalities of plasma proteins (8) UTI (urinary tract infection) Status: Acute Category: Medical Code(s): N39.0 - Urinary tract infection, site not specified (9) Anemia, chronic disease Status: Acute Category: Medical Code(s): D63.8 - Anemia in other chronic diseases classified elsewhere (10) Hypocalcemia Status: Acute Category: Medical Code(s): E83.51 - Hypocalcemia The patient's infection will respond to the chosen ABx?: Yes (EMPIRIC THERAPY) Is the patient receiving the right drug, dose, and route?: Yes Could a more targeted ABx be ordered?: No (SPUTUM CULTURES PENDING)
--- NOTE | 2020-07-11 12:47 | DIET.NUTRFU ---
Pt continues with minimal PO intakes ~25%, refused past 2 meals. She is on a Regular diet with soft modifications for ease of eating and protein supplements TID. Supplement regimen altered for more variation to encourage intakes. Weight is stable, BG slightly elevated, Mg and K low. Continuing to monitor. Continued efforts encouragement/cueing at meal times appreciated.
--- NOTE | 2020-07-11 15:36 | PC.NURSE ---
PT HAS BEEN AOX1 (NAME) HE IS ABLE TO ANSWER SOME YES OR NO QUESTIONS AND HAS ASKED FOR WATER MULTIPLE TIMES THIS SHIFT BUT HIS SPEECH IS OFTEN GARBLED AND HE IS DIFFICULT TO UNDERSTAND, HE DID TOLERATE A MODERATE AMOUNT OF PO INTAKE THIS SHIFT AND DID DRINK PROTEIN SHAKES WITH MEALS. DANICA WAS D/C TODAY PT TOLERATED WELL. PT O2 HAS BEEN TITRATED TO 3LNC WHICH IS AN IMPROVEMENT FROM THE 6L REQUIREMENT. AT THIS TIME HE IS 93% ON 3LNC, WHILE OBTAINING RA SAT PT DROPPED IN TO LOW 80'S BUT REBOUNDED ONCE NASAL CANNULA WAS RE-APPLIED. HIS LUNG SOUNDS ARE STILL SCATTERED EXPIRATORY RHOCHI. PT DOES REMOVE NC AT TIMES AND WILL DESAT. HE DENIES ABD PAIN AND NO N/V/D HAS BEEN NOTED T/O SHIFT. HE IS INCONTINENT OF BLADDER WITH NO BM NOTED THUS FAR. . DANICA D/C AND ATTENDS WAS APPLIED. STAFF HAS CONTINUED TURNING PT Q2 HOURS AND I HAVE PERFORMED ORAL CARE MULTIPLE TIMES THIS SHIFT, NO NEEDS AT THIS TIME, WILL CONTINUE TO MONITOR.
--- NOTE | 2020-07-11 15:50 | PC.NURSE ---
950 ML EMPTIED FROM MISHRA CATH THIS AM.
[2020-07-12] VITALS (7 sets, daily range): BP systolic 93–143; BP diastolic 50–62; PULSE 72–77; RESP 18–22; TEMP 36.6–37.2; O2SAT 92–96; BMI 23.9
--- NOTE | 2020-07-12 04:28 | PC.NURSE ---
Pt has been asleep for the majority of the shift. Alert to person and place only. No complaints of pain or SOA. Pt is receiving O2 via NC @ 2.5 LPM with sats. >90%. Lung sounds reveal expiratory rhonchi. Skin is C/D/I. No edema noted. Pt has been turned/repositioned Q2H this shift. Pt is incontinent of bowel and bladder. No BM thus far this shift. 20 G peripheral IV in the LT AC is patent and infusing NS @ 50 ML/HR. VSS. Call light within reach. Will continue to monitor.
--- NOTE | 2020-07-12 04:36 | PC.NURSE ---
Pt has been asleep for the majority of the shift. Alert to person and place only. No complaints of pain or SOA. Pt is receiving O2 via NC @ 2.5 LPM with sats. >90%. Lungs CTA. Skin is C/D/I. No edema noted. Pt has been turned/repositioned Q2H this shift. Pt is incontinent of bowel and bladder. No BM thus far this shift. 20 G peripheral IV in the LT AC is patent and infusing NS @ 50 ML/HR. VSS. Call light within reach. Will continue to monitor.
--- NOTE | 2020-07-12 07:19 | HMH.DCSUM ---
General - General Admission date:: 07/08/20 Discharge date: 07/12/20 HPI HPI: Mr. Gabriel is an 80-year-old gentleman well-known to our office as [facility] who presented with acute respiratory failure last night. He was diagnosed earlier in May with COVID-19 and admitted managed well in the jail setting. Developed worsening hypoxia, hypotension, and confusion yesterday at his jail. 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 On arrival he was found to be tachycardic, tachypneic, hypotensive, hypoxic, and severely ill. Work-up with finding of worsening infiltrate on chest imaging suspicious for pneumonia. Elevated lactate on labs. Met criteria for sepsis. Admitted and initiated on broad-spectrum antibiotics. Blood pressure improved overnight with fluid bolus and initiation of pneumonia treatment. On assessment this morning patient is alert but disoriented to place and time. States he feels bad all over but cannot verbalize further. Denies chest pain or nausea, difficulty obtaining further review of systems. Stable on 4 L nasal cannula oxygen Hospital Course Hospital Course: 80-year-old male resident of [facility], diagnosed with COVID-19 recently. Admitted for severe sepsis with respiratory failure. Initiated on antibiotics for healthcare acquired pneumonia. Patient tolerated fluid resuscitation and antibiotics well. Oxygen requirement gradually decreased to 2 L nasal cannula over the last 24 hours prior to discharge. Continue oral antibiotics with Levaquin for 5 more days. Goal saturation greater 92%, continue to wean in the jail setting as tolerated. During hospitalization required Lasix for some volume overload after aggressive resuscitation on admission. Responded well with improvement in his respiratory status. will continue to respect his DNR status and support with oxygen per nasal cannula. Of note cultures from urine and sputum were negative during hospitalization. Anemia-seems to be an exacerbation of his baseline chronic disease anemia. No transfusions during admission. Would benefit from repeat labs in a week. Medically stable to discharge back to his jail for continued care and antibiotic regimen orally DNR Regular diet Objective Vital signs: Temp Pulse Resp BP Pulse Ox 97.9 F 72 18 99/50 L 93 L 07/12/20 04:00 07/12/20 04:00 07/12/20 04:00 07/12/20 04:00 07/12/20 04:00 Narrative: Interactive this morning. Opens eyes to verbal stimuli, answers questions with soft voice. No significant respiratory distress, breathing very shallowly but without tachypnea. Heart rate regular. Oropharynx clear, no JVD. Extremity exam unchanged. No edema Neurologic exam improved with response to questions and making good eye contact. Soft, nontender Results Labs on day of discharge: Preliminary micro results at discharge 07/07/20 23:07 Blood Culture - Preliminary Blood NO GROWTH AFTER 48 HOURS 07/07/20 23:07 Blood Culture - Preliminary Blood NO GROWTH AFTER 48 HOURS DS: Diagnosis - Discharge Diagnosis (1) Acute hypoxemic respiratory failure due to COVID-19 Status: Acute (2) Severe sepsis Status: Resolved (3) Hypomagnesemia Status: Acute (4) HCAP (healthcare-associated pneumonia) Status: Acute (5) Dementia Status: Chronic (6) Hypertension Status: Chronic (7) Elevated troponin Status: Acute (8) UTI (urinary tract infection) Status: Acute (9) Anemia, chronic disease Status: Acute (10) Hypocalcemia Status: Acute Discharge Plan - Patient Discharge Instructions ACTIVITY: Continue current activity DIET: continue same diet Patient Instructions: Pneumonia-Adult, Sepsis, DI for Pneumonia -- Adult, DI for Sepsis -- Adult, Coronavirus Disease 2019, Preventing the Spread
--- NOTE | 2020-07-12 17:52 | PC.NURSE ---
ems was contacted earlier in shift to arrange for transportation but due to previous call they have not arrived yet. pt remains in stable condition, he is alert to self and able to answer simple questions, he is tolerating 2l nc with o2 wnl, he remains incontinent of bowel and bladder, he tolerated po intake for all meals this shift and had a milkshake with meals, no needs at this time, will continue to monitor.
--- NOTE | 2020-07-12 19:54 | PC.NURSE ---
MIKAEL FROM [facility] CALLED AT THIS TIME TO UPDATE STATUS ON TRANSFERRING THIS PT BACK TO [facility]. THEY STATED THAT THEIR OTHER AMBULANCE WAS ON A RUN OUT OF THE [facility].THEY STATED THEY WOULD COME TO TRANSFER PT WHEN THE OTHER AMBULANCE ARRIVES BACK IN TOWN .MOSHE AGUIRRE WAS NOTIFIED.
--- NOTE | 2020-07-13 01:20 | PC.NURSE ---
Late Entry: Pt was assessed at 2014. Brief, linens, and gown changed d/t pt pulling off previous brief and soiling himself. Pt had pulled O2 off and room air sat obtained of 89%. 2.5 LPM NC in mouth brings pt quickly up to 96%. place in nares and O2 is 93%. Pt took meds well, whole and 1 at a time. Drank a whole strawberry ensure. 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 Pt tolerated transfer to [facility]. Attempted to call updated report to [facility], no answer but message left.
== END 2020-07-12 21:53 | DRG 871 ==
LOC: ER 07-08 02:45 → 2ND 07-08 10:53
PROVIDERS: Internal Medicine Adolescent Medicine; Admitting Provider Internal Medicine Adolescent Medicine; Emergency Provider Emergency Medicine; PCP Internal Medicine Adolescent Medicine; Visit Provider Internal Medicine Adolescent Medicine
DX: A41.9 Sepsis, unspecified organism (principal); U07.1 COVID-19; J96.21 Acute and chronic respiratory failure with hypoxia; J18.9 Pneumonia, unspecified organism; N39.0 Urinary tract infection, site not specified; R65.20 Severe sepsis without septic shock; Y95 Nosocomial condition; E83.42 Hypomagnesemia; D64.9 Anemia, unspecified; I10 Essential (primary) hypertension; G30.1 Alzheimer's disease with late onset; F02.80 Dementia in other diseases classified elsewhere, unspecified severity, without behavioral disturbance, psychotic disturbance, mood disturbance, and anxiety
CPT/HCPCS: 36415; 71045; 80048; 80053; 81001; 82803; 83605; 83735; 83880; 84145; 84484; 85007; 85025; 85651; 86140; 86328; 87040; 87086; 87581; 87633; 87798; 93005; 93306; 94761; 96365; 96367; 99285; J0692; J1956; U0003

== ENCOUNTER 2020-07-15 11:23 | Inpatient (IN) | payer MEDICARE, SELFPAY ==
[2020-07-15] VITALS (22 sets, daily range): BP systolic 53–151; BP diastolic 30–99; PULSE 69–94; RESP 16–24; TEMP 36.9–37.1; O2SAT 89–97; BMI 26.6; BMI 26.1
--- NOTE | 2020-07-15 11:26 | ECG_ITS ---
APPROVED REPORT Exam: Resting ECG HR:82 bpm ECG Measurements Heart Rate [address] 250 P 27 QRSd 90 QRS 125 QT 412 T 37 QTc 481 Conclusion Sinus rhythm with 1st degree AV block with fusion complexes Low voltage QRS Late r wave progression Abnormal ECG Electronically signed by : Julio Connors, 07/15/2020 20:59:53
--- NOTE | 2020-07-15 11:37 | XR_ITS ---
PROCEDURE: XR CHEST PORTABLE CLINICAL HISTORY: cough COMPARISON: CT CHW CT CHEST W/ CONTRAST from 06/08/2016 CR CXR2 XR chest AP from 11/06/2018 CR XR CHEST PORTABLE from 07/08/2020 CR XR CHEST PORTABLE from 07/10/2020 FINDINGS: There is mild cardiomegaly without failure. There is increased density in both lower lung zones consistent with bilateral pneumonia with small right effusion. The right-sided effusion appears larger. Old right humeral neck fracture. IMPRESSION: Bilateral lower lobe pneumonia with enlarging right effusion Dictated by: Jimbo Sparks MD 07/15/2020 12:33 Jimbo Sparks MD in OV 07/15/2020 12:33
[2020-07-15 11:58] LABS: Chloride 108 mmol/L (98-107); Potassium 3.6 mmoL/L (3.5-5.1); Sodium 137 mmol/L (136-145)
[2020-07-15 11:59] LABS: Basophils % 0.7 % (0.1-2.0); Lymphocytes # 0.3 K/mm3 (0.7-4.5); Lymphocytes % 8.7 % (10-50); Mean Corpuscular HGB Conc 31.7 g/dL (31.8-35.4); Mean Corpuscular Hemoglobin 30.9 pg (27.0-31.2); Mean Corpuscular Volume 97.4 fl (80-94); Mean Platelet Volume 8.3 fl (7.4-10.4); Monocytes # 0.2 K/mm3 (0.1-1.0); Monocytes % 5.1 % (1.7-9.3); Neutrophils # 2.9 K/mm3 (1.8-7.8); Neutrophils % 85.5 % (37.0-80.0); Platelet Count 189 K/mm3 (142-424); Red Blood Count 2.38 M/mm3 (4.60-6.20); Red Cell Distribution Width 15.4 % (11.5-17.5); White Blood Count 3.4 K/mm3 (4.8-10.8)
[2020-07-15 12:01] LABS: Alanine Aminotransferase 22 U/L (12-78); Albumin Level 1.9 g/dl (3.5-5.0); Albumin/Globulin Ratio 0.8 (1.1-1.8); Alkaline Phosphatase 98 U/L (38-126); Anion Gap 10.6 mEq/L (5-15); Aspartate Amino Transferase 51 U/L (17-59); Bilirubin,Total 0.3 mg/dl (0.2-1.3); Blood Urea Nitrogen 17 mg/dl (9-20); Carbon Dioxide 22 mmol/L (22.0-30.0); Creatinine Clearance Estimated 66 mL/min (50-200); Estimated Glomerular Filt Rate 108 ml/min (>60); GFR (African American) 131 ML/MIN (>60); Globulin 2.5 g/dL (1.3-3.2); Total Protein,Serum 4.4 g/dl (6.3-8.2)
[2020-07-15 12:02] LABS: Calcium 7.6 mg/dl (8.4-10.2); Glucose 82 mg/dl (74-100)
[2020-07-15 12:10] LABS: Hematocrit 23.1 % (42.0-52.0); Hemoglobin 7.3 g/dL (14.1-18.0); MANUAL DIFFERENTIAL MANUAL DIFFERENTIAL (MANUAL DIFF)
[2020-07-15 12:11] LABS: NT Pro Brain Natriuretic Pep. 8490 pg/mL (0-450)
[2020-07-15 12:12] LABS: Activated Partial Thrombo Time 25.4 seconds (23.6-34.0); INR 1.16 (0.9-1.1); Prothrombin Time 12.7 seconds (9.4-11.8)
[2020-07-15 12:16] LABS: Troponin I 5.89 ng/ml (0.00-0.034)
[2020-07-15 12:16] LABS: Microscopic, Urine URINE MICROSCOPIC (MICROSCOPIC)
[2020-07-15 12:17] LABS: Lactic Acid 6.7 mmol/L (0.7-2.1)
--- NOTE | 2020-07-15 12:17 | PC.NURSE ---
Lactic of 6.7 and troponin of 5.9. MD joseph
--- NOTE | 2020-07-15 12:24 | PC.NURSE ---
John contacted about [facility]
--- NOTE | 2020-07-15 12:25 | PC.NURSE ---
MD gave orders for sepsis fluid bolus.
[2020-07-15 12:26] LABS: ABG HCO3 23.3 mmhg (22.0-26.0); ABG Oxygen Saturation 95 % (90-100); ABG PCO2 30.8 mmhg (35.0-45.0); ABG TCO2 24.2 mmhg (23-27)
[2020-07-15 12:27] LABS: Allen's Test acceptable; Oxygen 2 lpm %; Source Left Radial
[2020-07-15 12:33] LABS: Thyroid Stimulating Hormone 0.81 uIU/mL (0.465-4.68)
--- NOTE | 2020-07-15 12:51 | HMH.EDAMS ---
ED Disposition Clinical Impression: Delirium due to general medical condition, Acute hypoxemic respiratory failure due to COVID-19, Severe sepsis with acute organ dysfunction Anemia Qualifiers: Anemia type: unspecified type Qualified Code(s): D64.9 - Anemia, unspecified Disposition: Admitted As Inpatient Condition on Discharge: Critical Instructions: DI for Altered Mental Status Referrals: Pool Martinez MD [Primary Care Provider] - - Critical Care Critical Care Time: Yes Attestation: On 07/15/20, the high probability of a clinically significant, sudden or life threatening deterioration of the following system(s) required my full and direct attention, intervention and personal management. The time I documented below is in addition to time spent performing reported procedures but includes the following listed in this critical care notation. Total Critical Care Time: 45 Vital system(s) involved:: Circulatory Failure, Central Nervous System, Metabolic Failure, Respiratory Failure, Renal Failure, Shock (Septic) My critical care processes included: Assessment & monitoring of V/S, Initial and Re-exams, Data Review/Interpretation, Coordinating Care, Medication Orders and management, Documentation Medical Decision Making - Medical Records Medical records reviewed: Yes: I reviewed the patient's medical records. - Jasen Inquiry Pt receiving controlled substance: No Vital Signs: 07/15/20 11:24 07/15/20 11:57 07/15/20 12:03 Temperature 98.4 F Temperature Source Oral Pulse Rate [Left Radial] 79 Pulse Rate [Right Radial] 69 87 Respiratory Rate 24 22 18 Blood Pressure [Right Arm] 76/30 L 80/41 L 80/41 L Blood Pressure Mean [Right Arm] 45 54 54 Blood Pressure Source [Right Arm] Automatic Cuff Blood Pressure Position [Right Arm] Sitting 02 Sat by Pulse Oximetry 95 89 L 94 L Oxygen Delivery Method Room Air Nasal Cannula Oxygen Flow Rate (LPM) 2 07/15/20 12:27 07/15/20 12:56 07/15/20 13:30 Temperature Temperature Source Pulse Rate [Left Radial] Pulse Rate [Right Radial] 78 86 70 Respiratory Rate 18 16 20 Blood Pressure [Right Arm] 82/33 L 79/52 L 91/50 L Blood Pressure Mean [Right Arm] 49 61 63 Blood Pressure Source [Right Arm] Automatic Cuff Blood Pressure Position [Right Arm] Sitting 02 Sat by Pulse Oximetry 95 97 93 L Oxygen Delivery Method Nasal Cannula Nasal Cannula Nasal Cannula Oxygen Flow Rate (LPM) 2 2 2 07/15/20 14:00 Temperature Temperature Source Pulse Rate [Left Radial] Pulse Rate [Right Radial] 80 Respiratory Rate Blood Pressure [Right Arm] 53/30 L Blood Pressure Mean [Right Arm] 37 Blood Pressure Source [Right Arm] Blood Pressure Position [Right Arm] 02 Sat by Pulse Oximetry Oxygen Delivery Method Oxygen Flow Rate (LPM) - Lab Data Lab Results 07/15/20 11:26: WBC 3.4 L, RBC 2.38 L, Hgb 7.3 L*, Hct 23.1 L*, MCV 97.4 H, MCH 30.9, MCHC 31.7 L, RDW 15.4, Plt Count 189, MPV 8.3, Neut % (Auto) 85.5 H, Lymph % (Auto) 8.7 L, [place] % (Auto) 5.1, Eos % (Auto) 0.0 L, Baso % (Auto) 0.7, Neut # (Auto) 2.9, Lymph # (Auto) 0.3 L, [place] # (Auto) 0.2, Eos # (Auto) 0.0, Baso # (Auto) 0.0, Total Counted 100, Neutrophils % (Manual) 91 H, Lymphocytes % (Manual) 6 L, Monocytes % (Manual) 3, Platelet Estimate Normal, RBC Morphology Normal 07/15/20 11:26: PT 12.7 H, INR 1.16 H, APTT 25.4 07/15/20 11:26: Sodium 137, Potassium 3.6, Chloride 108 H, Carbon Dioxide 22, Anion Gap 10.6, BUN 17, Creatinine 0.70, Estimated Creat Clear 66, Estimated GFR 108, Est GFR ( Amer) 131, Glucose 82, Calcium 7.6 L, Total Bilirubin 0.3, AST 51, ALT 22, Alkaline Phosphatase 98, Troponin I 5.89 H, NT-Pro-B Natriuret Pep 8490 H, Total Protein 4.4 L, Albumin 1.9 L, Globulin 2.5, Albumin/Globulin Ratio 0.8 L, TSH 0.81 07/15/20 11:26: Lactate 6.7 H 07/15/20 11:35: Urine Color Yellow, Urine Appearance Clear, Urine pH 6.0, Ur Specific [place] 1.015, Urine Protein Trace, Urine Glucose (UA) Negative, Urine Ketones N
[2020-07-15 12:53] LABS: Bacteria,Urine 1+ /lpf; RBC,Urine Occasional #/hpf (0-3); WBC,Urine 20-50 #/hpf (0-3)
[2020-07-15 12:56] LABS: Appearance,Urine CLEAR (Clear); Bilirubin,Urine Negative (Negative); Blood, Urine TRACE-L (Negative); Color,Urine YELLOW (Yellow); Glucose,Urine (UA) Negative (Negative); Ketones,Urine Negative (Negative); Leukocyte Esterase,Urine 2+ (Negative); Nitrate,Urine Negative (Negative); Protein,Urine TRACE (Negative); Specific Gravity, Urine 1.015 (1.005-1.030); Urobilinogen,Urine 0.2 EU/dl (0.2)
[2020-07-15 12:59] LABS: Lymphocytes % 6 % (10-50); Monocytes % 3 % (2-9); Neutrophils % 91 % (42-76); Platelet Estimate Normal; Total Cells Counted 100
[2020-07-15 13:00] LABS: RBC Morphology Normal
--- NOTE | 2020-07-15 14:06 | PC.NURSE ---
MD aware of pt bp, Pharmacy contacted for levophed drip to be started
--- NOTE | 2020-07-15 14:07 | PC.NURSE ---
Called Dr Diggs office for Dr Herbert, His staff said they would have him call'
--- NOTE | 2020-07-15 14:44 | PC.NURSE ---
spoke with Dr. Martinez who called the family and asked them if they would like to send the patient back to assisted with hospice. Family declined and pt was started on levophed at this time. PT admitted to [facility]
--- NOTE | 2020-07-15 15:16 | PC.NURSE ---
Notified care management of admission
[2020-07-15 15:50] LABS: Reflex Lactic Add Lactic Reflex
--- NOTE | 2020-07-15 16:12 | HMH.PHACONS ---
- Pharmacy Consult Date: 07/15/20 Time: 16:12 Referring provider: DR. HANSEN Reason for Consult:: VANCOMYCIN DOSING Allergies and ADEs:: Allergies Allergy/AdvReac Type Severity Reaction Status Date / Time Sulfa (Sulfonamide Allergy Unknown Verified 07/08/20 04:34 Antibiotics) [SULFA (SULFONAMIDE ANTIBIOTICS)] Home Medications:: Home Medications Medication Instructions Recorded Confirmed Type Atorvastatin Calcium [Lipitor 80mg 80 mg PO HS 03/03/18 07/15/20 History Tab] Ferrous Sulfate 325 mg PO BID 03/03/18 07/15/20 History Finasteride [Proscar 5mg Tablet] 5 mg PO DAILY 03/03/18 07/15/20 History Escitalopram Oxalate [Lexapro] 20 mg PO DAILY 08/05/18 07/15/20 History Saccharomyces Boulardii [Probiotic] 250 mg PO DAILY 08/05/18 07/15/20 History Calcium Carbonate/Vitamin D3 1 each PO DAILY 11/06/18 07/15/20 History [Oyster Shell-D 250 mg Tablet] Donepezil HCl [Aricept 10mg 10 mg PO HS 11/06/18 07/15/20 History tablet] Fluticasone/Vilanterol [Breo 1 puff IH HS 11/06/18 07/15/20 History Ellipta 100-25 Mcg INH] Mirtazapine 7.5 mg PO HS 11/06/18 07/15/20 History Acetaminophen [Acetaminophen 325mg 1,000 mg PO BID 11/17/18 07/15/20 History tab] Cholecalciferol (Vitamin D3) 4,000 unit PO DAILY 07/08/20 07/15/20 History [Vitamin D3] Memantine HCl [Namenda 10mg 10 mg PO BID 07/08/20 07/15/20 History Tablet] Nitroglycerin [Nitrostat 0.4mg SL 0.4 mg SL Q5MINP PRN 07/08/20 07/15/20 History Tablet] Pantoprazole Sodium [Protonix 40mg 40 mg PO BID 07/08/20 07/15/20 History tablet] Potassium Chloride [Klor-Con M10] 20 meq PO DAILY 07/08/20 07/15/20 History Quetiapine Fumarate [Seroquel 25mg 25 mg PO BID 07/08/20 07/15/20 History tablet] Sucralfate [Carafate 1gm Tab] 1 gm PO ACHS 07/08/20 07/15/20 History lisinopriL [Lisinopril 5mg 5 mg PO DAILY 07/08/20 07/15/20 History Tablet] levoFLOXacin [Levaquin 750mg 750 mg PO DAILY 07/15/20 07/15/20 History tablet] Height: 1.75 m Weight: 81.647 kg Laboratory Results:: Laboratory Results - last 24 hr 07/15/20 11:26: WBC 3.4 L, RBC 2.38 L, Hgb 7.3 L*, Hct 23.1 L*, MCV 97.4 H, MCH 30.9, MCHC 31.7 L, RDW 15.4, Plt Count 189, MPV 8.3, Neut % (Auto) 85.5 H, Lymph % (Auto) 8.7 L, [place] % (Auto) 5.1, Eos % (Auto) 0.0 L, Baso % (Auto) 0.7, Neut # (Auto) 2.9, Lymph # (Auto) 0.3 L, [place] # (Auto) 0.2, Eos # (Auto) 0.0, Baso # (Auto) 0.0, Total Counted 100, Neutrophils % (Manual) 91 H, Lymphocytes % (Manual) 6 L, Monocytes % (Manual) 3, Platelet Estimate Normal, RBC Morphology Normal 07/15/20 11:26: PT 12.7 H, INR 1.16 H, APTT 25.4 07/15/20 11:26: Sodium 137, Potassium 3.6, Chloride 108 H, Carbon Dioxide 22, Anion Gap 10.6, BUN 17, Creatinine 0.70, Estimated Creat Clear 66, Estimated GFR 108, Est GFR ( Amer) 131, Glucose 82, Calcium 7.6 L, Total Bilirubin 0.3, AST 51, ALT 22, Alkaline Phosphatase 98, Troponin I 5.89 H, NT-Pro-B Natriuret Pep 8490 H, Total Protein 4.4 L, Albumin 1.9 L, Globulin 2.5, Albumin/Globulin Ratio 0.8 L, TSH 0.81 07/15/20 11:26: Lactate 6.7 H 07/15/20 11:35: Urine Color Yellow, Urine Appearance Clear, Urine pH 6.0, Ur Specific [place] 1.015, Urine Protein Trace, Urine Glucose (UA) Negative, Urine Ketones Negative, Urine Blood Trace-l, Urine Nitrate Negative, Urine Bilirubin Negative, Urine Urobilinogen 0.2, Ur Leukocyte Esterase 2+ A, Urine RBC Occasional, Urine WBC 20-50, Ur Squamous Epith Cells None, Urine Bacteria 1+ 07/15/20 11:50: Specimen Source Left radial, O2 % 2 lpm, ABG pH 7.50 H, ABG pCO2 30.8 L, ABG pO2 78.0 L, ABG HCO3 23.3, ABG Total CO2 24.2, ABG O2 Saturation 95, ABG Base Excess 0.0, Jimbo Test acceptable 07/15/20 14:40: Troponin I 11.20 H 07/15/20 14:40: Blood Type O Positive, Antibody Screen Negative, Crossmatch (AHG) See Detail Medical History: Reports:: Aneurysm, Atherosclerotic Heart Disease, BPH, Congestive Heart Failure, Chronic Obstructive Pulmonary Disease (COPD), [place]
--- NOTE | 2020-07-15 16:23 | HMH.PHAVTE ---
[facility] Pharmacy VTE Monitoring - Patient Demographics Admission date: 07/15/20 Report Date: 07/15/20 Time: 16:23 Allergies/Adverse Reactions: Patient Allergies Sulfa (Sulfonamide Antibiotics) [SULFA (SULFONAMIDE ANTIBIOTICS)] Allergy (Unknown, Verified 07/08/20 04:34) Height: 1.75 m Weight: 81.647 kg Patient Problems: Current Active Problems Severe sepsis with acute organ dysfunction (Acute) Anemia (Acute) Acute hypoxemic respiratory failure due to COVID-19 (Acute) Delirium due to general medical condition (Acute) - VTE Risk Labs: VTE Related Lab Results Hgb 7.3 g/dL (14.1-18.0) L* 07/15/20 11:26 Hct 23.1 % (42.0-52.0) L* 07/15/20 11:26 Plt Count 189 K/mm3 (142-424) 07/15/20 11:26 PT 12.7 seconds (9.4-11.8) H 07/15/20 11:26 INR 1.16 (0.9-1.1) H 07/15/20 11:26 APTT 25.4 seconds (23.6-34.0) 07/15/20 11:26 BUN 17 mg/dl (9-20) 07/15/20 11:26 Creatinine 0.70 mg/dl (0.66-1.25) 07/15/20 11:26 Estimated Creat Clear 66 mL/min (50-200) 07/15/20 11:26 Clinical Trial Participant: No - Prophylaxis VTE Prophylaxis Ordered?: Yes Types of VTE Prophylaxis: IPCS Knee High
[2020-07-15 16:51] LABS: Lactic Acid Follow Up (RFLX 1) 1.5 mmol/L (0.7-2.1)
--- NOTE | 2020-07-15 18:14 | PC.NURSE ---
BP 127/99. Levophed gtt turned OFF.
--- NOTE | 2020-07-15 18:19 | PC.NURSE ---
Troponin 10.2. Notified Dr. Martinez.
--- NOTE | 2020-07-15 18:29 | HMH.HP ---
*Admission Date: 07/15/20 *Chief complaint: hypoxic and unresponsive *History of present illness: Mr. Gabriel is an 80-year-old gentleman well-known to our office as we care for him at his long term who presented with acute respiratory failure, septic shock, and NSTEMI to the ER this afternoon. Of note he was recently discharged from the hospital less than 2 days ago when he presented with similar presentation though troponin was not as elevated, hypotension not as severe. He was diagnosed earlier in May with COVID-19 and managed well in the long term setting. Developed worsening hypoxia, hypotension, and confusion last week leading to admission. Started on Abx with improvement inmentation, blood pressure and stable O2 requirement. On arrival today he was found to be tachycardic, tachypneic, hypotensive, hypoxic, and severely ill. blood pressure not responsive to fluids and necessitated Levophed gtt initiation in ER, Lactate >6, troponin >5, and obtunded. Sepsis protocol initiated with 30cc/kg bolus. Admitted to ICU for further management Hgb 7.3, initiated transfusion upon transfer to the unit. [facility] History I have reviewed the patient's past medical history: Yes (from charts) Medical History: Reports:: Aneurysm, Atherosclerotic Heart Disease, BPH, Congestive Heart Failure, Chronic Obstructive Pulmonary Disease (COPD), Coronary Artery Disease, Dementia, Hyperlipidemia, Hypertension, Kidney Stones, Myocardial Infarction, Peripheral Vascular Disease Denies:: Cancer, Diabetes Mellitus Type 1, Diabetes Mellitus Type 2, Internal Pacemaker, MRSA *Have you ever received a pneumonia vaccine?: No *Have you received a flu vaccine this season?: No Other Medical History: Reports: Anemia, Arthritis Laterality Cases: Right: Arthroscopy Hip, Arthroscopy Shoulder Other Surgeries: Yes: No Previous Surgery, Cardiac Catheterization, Coronary Stent, Other. No: Pacemaker Amputation: No Fractures: Yes (right humerus and ulna) - *Social History Smoking Status: Former smoker Tobacco Type: cigarettes # Packs/Day (cigarettes): 1 #Yrs smoked (if former smoker): 70 Alcohol Intake: never Alcohol Intake Frequency:: other Substance Use Type: denies use *Occupational Status:: disabled Housing: long term Household Members: other *Travel in the last 8 weeks: None Family Hx:: Unable to obtain Review of Systems - Review of Systems Review of systems:: unable to obtain Meds Home Medications Medication Instructions Recorded Confirmed Type Atorvastatin Calcium [Lipitor 80mg 80 mg PO HS 03/03/18 07/15/20 History Tab] Ferrous Sulfate 325 mg PO BID 03/03/18 07/15/20 History Finasteride [Proscar 5mg Tablet] 5 mg PO DAILY 03/03/18 07/15/20 History Escitalopram Oxalate [Lexapro] 20 mg PO DAILY 08/05/18 07/15/20 History Saccharomyces Boulardii [Probiotic] 250 mg PO DAILY 08/05/18 07/15/20 History Calcium Carbonate/Vitamin D3 1 each PO DAILY 11/06/18 07/15/20 History [Oyster Shell-D 250 mg Tablet] Donepezil HCl [Aricept 10mg 10 mg PO HS 11/06/18 07/15/20 History tablet] Fluticasone/Vilanterol [Breo 1 puff IH HS 11/06/18 07/15/20 History Ellipta 100-25 Mcg INH] Mirtazapine 7.5 mg PO HS 11/06/18 07/15/20 History Acetaminophen [Acetaminophen 325mg 1,000 mg PO BID 11/17/18 07/15/20 History tab] Cholecalciferol (Vitamin D3) 4,000 unit PO DAILY 07/08/20 07/15/20 History [Vitamin D3] Memantine HCl [Namenda 10mg 10 mg PO BID 07/08/20 07/15/20 History Tablet] Nitroglycerin [Nitrostat 0.4mg SL 0.4 mg SL Q5MINP PRN 07/08/20 07/15/20 History Tablet] Pantoprazole Sodium [Protonix 40mg 40 mg PO BID 07/08/20 07/15/20 History tablet] Potassium Chloride [Klor-Con M10] 20 meq PO DAILY 07/08/20 07/15/20 History Quetiapine Fumarate [Seroquel 25mg 25 mg PO BID 07/08/20 07/15/20 History tablet] Sucralfate [Carafate 1gm Tab] 1 gm PO ACHS 07/08/20 07/15/20 History lisinopriL [Lisinopril 5mg 5 mg PO DAILY 0
[2020-07-15 20:01] LABS: Hematocrit 27.7 % (42.0-52.0)
[2020-07-15 20:03] LABS: Hemoglobin 8.6 g/dL (14.1-18.0)
[2020-07-16] VITALS (21 sets, daily range): BP systolic 87–114; BP diastolic 45–66; PULSE 67–90; RESP 17–22; TEMP 36.4–37.1; O2SAT 86–98
--- NOTE | 2020-07-16 00:20 | PC.NURSE ---
AT 0000 PT HAD 3 BP'S 15 MIN APART WITH A MAP LESS THAN 65 WITH THE LOWEST SYSTOLIC OF 80. LEVOPHED DRIP WAS STARTED BACK AT 2 MCG/MIN. FIRST BP SINCE DRIP WAS STARTED BACK WAS 93/51. SINCE PT HAD HIS BATH HE HAS BEEN SLEEPING WELL BUT WILL AWAKEN EASILY. DURING BATH PT WOULD ANSWER QUESTIONS AND FOLLOW SIMPLE COMMANDS.
--- NOTE | 2020-07-16 01:03 | ECG_ITS ---
APPROVED REPORT Exam: Resting ECG HR:77 bpm ECG Measurements Heart Rate 77 AXES WY 242 P 50 QRSd 92 QRS -21 QT 446 T -23 QTc 504 Conclusion Sinus rhythm with 1st degree AV block Low voltage QRS Nonspecific IV conduction delay Poor r wave progression Prolonged QT Abnormal ECG Electronically signed by : Julio Connors, 07/16/2020 06:42:25
[2020-07-16 07:56] LABS: Alanine Aminotransferase 40 U/L (12-78); Albumin Level 2.4 g/dl (3.5-5.0); Albumin/Globulin Ratio 0.8 (1.1-1.8); Alkaline Phosphatase 124 U/L (38-126); Anion Gap 8.1 mEq/L (5-15); Aspartate Amino Transferase 104 U/L (17-59); Bilirubin,Total 0.4 mg/dl (0.2-1.3); Blood Urea Nitrogen 19 mg/dl (9-20); Calcium 7.5 mg/dl (8.4-10.2); Carbon Dioxide 26 mmol/L (22.0-30.0); Chloride 112 mmol/L (98-107); Creatinine Clearance Estimated 64 mL/min (50-200); Estimated Glomerular Filt Rate 93 ml/min (>60); GFR (African American) 112 ML/MIN (>60); Glucose 106 mg/dl (74-100); Potassium 3.1 mmoL/L (3.5-5.1); Sodium 143 mmol/L (136-145); Total Protein,Serum 5.4 g/dl (6.3-8.2)
--- NOTE | 2020-07-16 08:10 | PC.NURSE ---
PT IS RESTING IN BED. TURNED AND REPOSITIONED FREQUENTLY. TREMORS NOTED. DURING ASSESSMENT AT THE BEGINNING OF SHIFT PT WAS ALERT TO SELF AND WAS ABLE TO FOLLOW SIMPLE COMMANDS. TOLERATED BATH AND BED CHANGE THIS SHIFT. ORAL CARE PROVIDED Q2H. LEVOPHED DRIP STAYED AT 2MCG/MIN FOR SEVERAL HOURS THIS SHIFT TO KEEP MAP >65. AT 0150 PT HAD A 12 BEAT RUN OF VTACH . RESPIRATORY CALLED TO DO AN EKG. NOTIFIED PHYSICIAN DYE REEL OPERATOR AND HE ORDERED A CARDIOLOGY CONSULT. LEVOPHED DRIP WAS AT 1 MCG/MIN AT 0700 THIS MORNING. PT'S BP 98/56. REPORT HAND OFF TO ADEOLA LOPEZ RN.
--- NOTE | 2020-07-16 08:14 | HMH.ACPN2 ---
Internal Medicine - PN: Subj *Date: 07/16/20 *Time: 08:14 Interval history: Overnight patient has remained in the intensive care unit on a Levophed drip. He has been slightly more awake and alert, oxygenation has been stable with nasal cannula oxygenation sufficient to keep his O2 saturations above 90%. When conversed with patient will arouse and lift his head up and make somewhat hard to understand one-word answers. Exam Vital signs and Labs for Last 24 Hours: Temp Pulse Resp BP Pulse Ox 98.1 F 87 20 98/56 L 90 L 07/16/20 06:48 07/16/20 07:55 07/16/20 06:48 07/16/20 06:48 07/16/20 06:48 Laboratory Results - last 24 hr 07/15/20 11:26: WBC 3.4 L, RBC 2.38 L, Hgb 7.3 L*, Hct 23.1 L*, MCV 97.4 H, MCH 30.9, MCHC 31.7 L, RDW 15.4, Plt Count 189, MPV 8.3, Neut % (Auto) 85.5 H, Lymph % (Auto) 8.7 L, [place] % (Auto) 5.1, Eos % (Auto) 0.0 L, Baso % (Auto) 0.7, Neut # (Auto) 2.9, Lymph # (Auto) 0.3 L, [place] # (Auto) 0.2, Eos # (Auto) 0.0, Baso # (Auto) 0.0, Total Counted 100, Neutrophils % (Manual) 91 H, Lymphocytes % (Manual) 6 L, Monocytes % (Manual) 3, Platelet Estimate Normal, RBC Morphology Normal 07/15/20 11:26: PT 12.7 H, INR 1.16 H, APTT 25.4 07/15/20 11:26: Sodium 137, Potassium 3.6, Chloride 108 H, Carbon Dioxide 22, Anion Gap 10.6, BUN 17, Creatinine 0.70, Estimated Creat Clear 66, Estimated GFR 108, Est GFR ( Amer) 131, Glucose 82, Calcium 7.6 L, Total Bilirubin 0.3, AST 51, ALT 22, Alkaline Phosphatase 98, Troponin I 5.89 H, NT-Pro-B Natriuret Pep 8490 H, Total Protein 4.4 L, Albumin 1.9 L, Globulin 2.5, Albumin/Globulin Ratio 0.8 L, TSH 0.81 07/15/20 11:26: Lactate 6.7 H 07/15/20 11:35: Urine Color Yellow, Urine Appearance Clear, Urine pH 6.0, Ur Specific [place] 1.015, Urine Protein Trace, Urine Glucose (UA) Negative, Urine Ketones Negative, Urine Blood Trace-l, Urine Nitrate Negative, Urine Bilirubin Negative, Urine Urobilinogen 0.2, Ur Leukocyte Esterase 2+ A, Urine RBC Occasional, Urine WBC 20-50, Ur Squamous Epith Cells None, Urine Bacteria 1+ 07/15/20 11:50: Specimen Source Left radial, O2 % 2 lpm, ABG pH 7.50 H, ABG pCO2 30.8 L, ABG pO2 78.0 L, ABG HCO3 23.3, ABG Total CO2 24.2, ABG O2 Saturation 95, ABG Base Excess 0.0, Jimbo Test acceptable 07/15/20 14:40: Troponin I 11.20 H 07/15/20 14:40: Blood Type O Positive, Antibody Screen Negative, Crossmatch ([facility]) See Detail 07/15/20 16:20: Lactate 1.5 07/15/20 17:40: Troponin I 10.20 H 07/15/20 19:40: Hgb 8.6 L D, Hct 27.7 L 07/16/20 06:00: Sodium 143, Potassium 3.1 L, Chloride 112 H, Carbon Dioxide 26, Anion Gap 8.1, BUN 19, Creatinine 0.80, Estimated Creat Clear 64, Estimated GFR 93, Est GFR ( Amer) 112, Glucose 106 H D, Calcium 7.5 L, Total Bilirubin 0.4, AST 104 H D, ALT 40 D, Alkaline Phosphatase 124, Total Protein 5.4 L, Albumin 2.4 L D, Globulin 3.0, Albumin/Globulin Ratio 0.8 L I & O for Last 24 hours: Intake & Output 07/13/20 07/14/20 07/15/20 07/16/20 11:59 11:59 11:59 11:59 Intake Total 1691.612 / 1691.612 Output Total 650 / 650 Balance 1041.612 / 1041.612 Weight 180 lb 176 lb 8 oz Narrative: Responsive and arousable. Blood pressure currently 89 systolic on Levophed drip. Oropharynx dry but clear. No JVD. Heart rate regular with systolic murmur as previously noted. Lungs have rhonchorous sounds bilaterally with poor air movement in the bases. Abdomen soft, Perfusion is diminished in his hands and feet but pulses remain intact. Neurologic exam nonfocal. Assessment and Plan (1) Septic shock Status: Acute Category: Medical Code(s): A41.9 - Sepsis, unspecified organism; R65.21 - Severe sepsis with septic shock (2) Acute hypoxemic respiratory failure due to COVID-19 Status: Acute Category: Medical Code(s): U07.1 - COVID-19; J96.01 - Acute respiratory failure with hypoxia (3) Anemia Status: Chronic Qualifiers: Anemia type: other cause Qualified Code(s): D64.9 - Anemia, unspecified Category
--- NOTE | 2020-07-16 08:45 | PC.NURSE ---
PATIENT UNABLE TO GIVE SPUTUM SPECIMEN
--- NOTE | 2020-07-16 10:04 | PC.NURSE ---
increased levophed to 4
[2020-07-16 10:05] LABS: Basophils % 0.5 % (0.1-2.0); Eosinophils % 0.3 % (0.1-12.0); Hematocrit 27.1 % (42.0-52.0); Hemoglobin 8.4 g/dL (14.1-18.0); Lymphocytes # 0.6 K/mm3 (0.7-4.5); Lymphocytes % 10.9 % (10-50); Mean Corpuscular HGB Conc 30.9 g/dL (31.8-35.4); Mean Corpuscular Hemoglobin 29.9 pg (27.0-31.2); Mean Corpuscular Volume 96.8 fl (80-94); Mean Platelet Volume 8.3 fl (7.4-10.4); Monocytes # 0.3 K/mm3 (0.1-1.0); Monocytes % 4.8 % (1.7-9.3); Neutrophils # 4.4 K/mm3 (1.8-7.8); Neutrophils % 83.5 % (37.0-80.0); Platelet Count 214 K/mm3 (142-424); White Blood Count 5.3 K/mm3 (4.8-10.8)
--- NOTE | 2020-07-16 11:35 | PC.NURSE ---
decreased levophed to 2mcg/min
--- NOTE | 2020-07-16 18:31 | PC.NURSE ---
patient has ahd an oay day. noted tremors at times. has woken up and taken drinks of water. appetie is poor. patient is currently off of levophed at this time. bps noted to be on lower end. heart rate is 60-70. noted to have a wide qrs at times. while on levophed noted to have multiple runs of vtach, since coming off have not noticed any runs. has been on 4l nasal cannula sating high 90s. one runny stool. appeared a little dark. some redness to bottom no breakdown noted. vitals stable. family has been updated.
[2020-07-17] VITALS (16 sets, daily range): BP systolic 87–103; BP diastolic 46–61; PULSE 63–100; RESP 17–21; TEMP 36.4–37.3; O2SAT 90–98
--- NOTE | 2020-07-17 04:52 | PC.NURSE ---
PT IS RESTING IN BED. PT HAS HAD SEVERAL LOW BP'S T/O THE SHIFT EVEN AFTER THE IVF BOLUS BUT PT WILL AWAKEN EASILY AND FOLLOW SIMPLE COMMANDS. O2 SATURATION HAS MAINTAINED 92-97% ON 4 L NC. TURNED AND REPOSITIONED Q2H. ORAL CARE PROVIDED. PT REQUESTED A SOFT DRINK EARLY IN THE SHIFT. TOOK ALL PO MEDICATION W/O DIFFICULTY. PT HAS ONLY HAD 200 ML'S OF UOP THIS SHIFT. 2 MODERATE BOWEL MOVEMENTS THIS SHIFT. PARTIAL BATH AND BED CHANGE. WILL CONTINUE TO MONITOR.
--- NOTE | 2020-07-17 08:22 | HMH.ACPN2 ---
Internal Medicine - PN: Subj *Date: 07/17/20 *Time: 08:22 Interval history: Patient remains in the intensive care unit, was taken off pressor agents yesterday morning because of runs of SVT and he has had no further dysrhythmias since that time. His blood pressure has been in the mid 80s systolic with mean arterial pressures in the 50 range. He responded somewhat to a fluid bolus overnight. He remains responsive and gives one-word answers to questions. Exam Vital signs and Labs for Last 24 Hours: Temp Pulse Resp BP Pulse Ox 98.0 F 83 18 87/56 L 90 L 07/17/20 05:50 07/17/20 05:50 07/17/20 05:50 07/17/20 05:50 07/17/20 05:50 Laboratory Results - last 24 hr 07/16/20 09:20: WBC 5.3 D, RBC 2.80 L, Hgb 8.4 L, Hct 27.1 L, MCV 96.8 H, MCH 29.9, MCHC 30.9 L, RDW 16.0, Plt Count 214, MPV 8.3, Neut % (Auto) 83.5 H, Lymph % (Auto) 10.9, [place] % (Auto) 4.8, Eos % (Auto) 0.3, Baso % (Auto) 0.5, Neut # (Auto) 4.4, Lymph # (Auto) 0.6 L, [place] # (Auto) 0.3, Eos # (Auto) 0.0, Baso # (Auto) 0.0 I & O for Last 24 hours: Intake & Output 07/14/20 07/15/20 07/16/20 07/17/20 11:59 11:59 11:59 11:59 Intake Total 2050.612 / 2050.612 4210 / 4210 Output Total 650 / 650 625 / 625 Balance 1401.612 / 1200.900 4063 / 3585 Weight 180 lb 176 lb 8 oz Microbiology Reports for the Last 24 Hours: Microbiology 07/15/20 11:35 Urine,Catheterized Urine Culture - Preliminary NO GROWTH AFTER 24 HOURS Narrative: Alert but not oriented except to person. Heart rate regular. No murmurs. Abdomen soft. Perfusion is good with warm extremities. Lungs have good air movement with minimal rhonchi in the bases. No rash. Oropharynx clear. Assessment and Plan (1) Septic shock Status: Acute Category: Medical Code(s): A41.9 - Sepsis, unspecified organism; R65.21 - Severe sepsis with septic shock (2) Acute hypoxemic respiratory failure due to COVID-19 Status: Acute Category: Medical Code(s): U07.1 - COVID-19; J96.01 - Acute respiratory failure with hypoxia (3) Anemia Status: Chronic Qualifiers: Anemia type: other cause Qualified Code(s): D64.9 - Anemia, unspecified Category: Medical Code(s): D64.9 - Anemia, unspecified (4) Hypocalcemia Status: Acute Category: Medical Code(s): E83.51 - Hypocalcemia (5) UTI (urinary tract infection) Status: Acute Qualifiers: Urinary tract infection type: site unspecified Hematuria presence: without hematuria Qualified Code(s): N39.0 - Urinary tract infection, site not specified Category: Medical Code(s): N39.0 - Urinary tract infection, site not specified (6) Dementia Status: Chronic Qualifiers: Dementia type: Alzheimer's disease Alzheimer's disease onset: late-onset Dementia behavioral disturbance: with behavioral disturbance Category: Medical Code(s): F03.90 - Unspecified dementia without behavioral disturbance (7) Hypoalbuminemia due to protein-calorie malnutrition Status: Acute Category: Medical Code(s): E88.09 - Other disorders of plasma-protein metabolism, not elsewhere classified; E46 - Unspecified protein-calorie malnutrition (8) NSTEMI (non-ST elevated myocardial infarction) Status: Acute Category: Medical Code(s): I21.4 - Non-ST elevation (NSTEMI) myocardial infarction - Assessment and plan all Dx Assessment and Plan for all problems:: Severe sepsis from post Covid pneumonia-continue fluid support. Hold Levophed given the side effects of cardiac dysrhythmias. Family aware of critical nature of the his condition, continue to avoid artificial life support and would avoid CPR --continue current antibiotic therapy. I have told the nurses that systolic blood pressures in the mid 80s are fine as long as he is alert. Continue fluid support, consider fluid boluses throughout the day. Labs are pending, I will review these. We will transfer out of stepdown tod
[2020-07-17 10:22] LABS: Chloride 116 mmol/L (98-107); Sodium 144 mmol/L (136-145)
[2020-07-17 10:25] LABS: Blood Urea Nitrogen 15 mg/dl (9-20); Carbon Dioxide 23 mmol/L (22.0-30.0); Creatinine Clearance Estimated 64 mL/min (50-200); Estimated Glomerular Filt Rate 93 ml/min (>60); GFR (African American) 112 ML/MIN (>60)
[2020-07-17 10:26] LABS: Calcium 7.4 mg/dl (8.4-10.2); Glucose 103 mg/dl (74-100)
[2020-07-17 10:28] LABS: Basophils % 0.4 % (0.1-2.0); Eosinophils # 0.1 K/mm3 (0.0-0.4); Eosinophils % 1.3 % (0.1-12.0); Hematocrit 27.4 % (42.0-52.0); Hemoglobin 8.5 g/dL (14.1-18.0); Lymphocytes # 0.8 K/mm3 (0.7-4.5); Lymphocytes % 15.8 % (10-50); Mean Corpuscular HGB Conc 31.1 g/dL (31.8-35.4); Mean Corpuscular Hemoglobin 30.3 pg (27.0-31.2); Mean Corpuscular Volume 97.6 fl (80-94); Mean Platelet Volume 8.8 fl (7.4-10.4); Monocytes # 0.3 K/mm3 (0.1-1.0); Monocytes % 5.3 % (1.7-9.3); Neutrophils # 3.9 K/mm3 (1.8-7.8); Neutrophils % 77.3 % (37.0-80.0); Platelet Count 184 K/mm3 (142-424); Potassium 2.7 mmoL/L (3.5-5.1); Red Blood Count 2.81 M/mm3 (4.60-6.20); Red Cell Distribution Width 16.1 % (11.5-17.5)
--- NOTE | 2020-07-17 10:54 | PC.NURSE ---
reported critical potassium to md. ordered 40meq of po potassium bid
--- NOTE | 2020-07-17 16:34 | PC.NURSE ---
patient has done well this hsift. has been able to make needs known. bp has tolerated well. no signs of vtach on monitor. has been drinking well appetite poor. has been awake most of day with intermittent sleeping. weaned down to 2l and is tolerating well 93-95%. no issues noted. some runny stools at time, green and pasty. vitals stable.
--- NOTE | 2020-07-17 17:51 | PC.NURSE ---
RESPIRATORY CARE NOTE: 1750- PT STILL HAS AN UNPRODUCTIVE COUGH, AND IS UNABLE TO PROVIDE SPUTUM SPECIMEN AT THIS TIME.
--- NOTE | 2020-07-17 20:21 | PC.NURSE ---
He is alert to person. His speech is clear. He continues in contact and airborne precautions. He takes his medication whole in applesauce. He ate a little bit of applesauce and then stated he did not want anymore. His safety is set and call light is within reach. His O2 was on 4LPM n/c upon initial assessment. His pulse ox had to be moved to his toe r/t him picking the other sensor off his hands. He has GEORGINA hose and heel protectors in place. Heels assessed and skin is intact. He is voiding per f/c. Urine is yellow, clear. He has edema on his LAC that is the appearance of an IV that had infiltrated. He denies pain. No signs of pain or distress. Scattered bruising on BUE and scattered petechiae on chest.
--- NOTE | 2020-07-17 23:46 | PC.NURSE ---
He continues to pick at things. He dislodged his IV and a new IV was placed. He had pulled his O2 off and his sats were in the 90s on RA. Therefore, he was left on RA. He was incontinent of stool. His brief, linens, and gown was changed.
[2020-07-18] VITALS (9 sets, daily range): BP systolic 86–101; BP diastolic 46–68; PULSE 89–110; RESP 16–22; TEMP 36.6–38; O2SAT 91–96; BMI 27.8
--- NOTE | 2020-07-18 02:27 | PC.NURSE ---
He reported SOA and stated he felt like he was smothering despite his O2 being above 90%. O2 @ 2LPM n/c was placed back on patient for comfort.
[2020-07-18 06:19] LABS: Chloride 118 mmol/L (98-107); Potassium 3.2 mmoL/L (3.5-5.1); Sodium 145 mmol/L (136-145)
[2020-07-18 06:22] LABS: Anion Gap 7.2 mEq/L (5-15); Blood Urea Nitrogen 13 mg/dl (9-20); Carbon Dioxide 23 mmol/L (22.0-30.0); Creatinine Clearance Estimated 69 mL/min (50-200); Estimated Glomerular Filt Rate 108 ml/min (>60); GFR (African American) 131 ML/MIN (>60)
[2020-07-18 06:23] LABS: Calcium 7.6 mg/dl (8.4-10.2); Glucose 105 mg/dl (74-100)
[2020-07-18 06:45] LABS: Basophils % 0.2 % (0.1-2.0); Eosinophils % 0.2 % (0.1-12.0); Hematocrit 27.6 % (42.0-52.0); Hemoglobin 8.8 g/dL (14.1-18.0); Lymphocytes # 0.8 K/mm3 (0.7-4.5); Lymphocytes % 8.4 % (10-50); Mean Corpuscular HGB Conc 31.9 g/dL (31.8-35.4); Mean Corpuscular Hemoglobin 30.1 pg (27.0-31.2); Mean Corpuscular Volume 94.4 fl (80-94); Mean Platelet Volume 9.1 fl (7.4-10.4); Monocytes # 0.5 K/mm3 (0.1-1.0); Monocytes % 5.1 % (1.7-9.3); Neutrophils # 7.9 K/mm3 (1.8-7.8); Neutrophils % 86.1 % (37.0-80.0); Platelet Count 212 K/mm3 (142-424); Red Blood Count 2.93 M/mm3 (4.60-6.20); White Blood Count 9.2 K/mm3 (4.8-10.8)
--- NOTE | 2020-07-18 06:47 | SW/DCPLANNER ---
PATIENT WAS JUST DISCHARGED THE END OF LAST WEEK AND PRESENTED BACK AFTER BEING IN THE COVID UNIT HERE AT [facility]... HE WAS READMITTED BACK IN THE COVID UNIT AND IS A RESIDENT OF [facility]... HE IS ON A MEDICAID BEDHOLD AND WILL RETURN BACK ONCE MEDICALLY READY TO DISCHARGE.. DISPOSITION UNCERTAIN AT THIS TIME CM WILL FOLLOW AND ASSIST INDICATED...
--- NOTE | 2020-07-18 06:50 | HMH.ACPN2 ---
Internal Medicine - PN: Subj *Date: 07/18/20 *Time: 08:35 Interval history: No acute distress overnight. Continue to require intermittent fluid boluses for blood pressure. No pressors initiated. Fever this morning 100.4 at 4 AM, has resolved. Patient remains altered, minimal interaction on exam. Stable on 4 L nasal cannula oxygen. Tolerating p.o. meds when crushed in applesauce. Unable to get review of systems from patient Exam Vital signs and Labs for Last 24 Hours: Temp Pulse Resp BP Pulse Ox 100.4 F H 90 18 97/57 L 95 07/18/20 03:55 07/18/20 04:00 07/18/20 03:55 07/18/20 03:55 07/18/20 03:55 Laboratory Results - last 24 hr 07/17/20 09:25: WBC 5.0, RBC 2.81 L, Hgb 8.5 L, Hct 27.4 L, MCV 97.6 H, MCH 30.3, MCHC 31.1 L, RDW 16.1, Plt Count 184, MPV 8.8, Neut % (Auto) 77.3, Lymph % (Auto) 15.8, [place] % (Auto) 5.3, Eos % (Auto) 1.3, Baso % (Auto) 0.4, Neut # (Auto) 3.9, Lymph # (Auto) 0.8, [place] # (Auto) 0.3, Eos # (Auto) 0.1, Baso # (Auto) 0.0 07/17/20 09:25: Sodium 144, Potassium 2.7 L*, Chloride 116 H, Carbon Dioxide 23, Anion Gap Not Reportable, BUN 15, Creatinine 0.80, Estimated Creat Clear 64, Estimated GFR 93, Est GFR ( Amer) 112, Glucose 103 H, Calcium 7.4 L 07/17/20 20:18: Vancomycin Trough 13.0 H 07/18/20 05:30: Sodium 145, Potassium 3.2 L, Chloride 118 H, Carbon Dioxide 23, Anion Gap 7.2, BUN 13, Creatinine 0.70, Estimated Creat Clear 69, Estimated GFR 108, Est GFR ( Amer) 131, Glucose 105 H, Calcium 7.6 L I & O for Last 24 hours: Intake & Output 07/15/20 07/16/20 07/17/20/22/21 23:59 23:59 23:59 23:59 Intake Total 253.612 / 648.664 2833 / 4193 5603 / 5603 1343 / 1343 Output Total 1075 / 1075 211 / 211 400 / 400 Balance 253.612 / 366.943 9743 / 3118 5392 / 5392 943 / 943 Weight 80.059 kg 85.185 kg Microbiology Reports for the Last 24 Hours: Microbiology 07/15/20 11:26 Blood Blood Culture - Preliminary NO GROWTH AFTER 48 HOURS 07/15/20 11:26 Blood Blood Culture - Preliminary NO GROWTH AFTER 48 HOURS 07/15/20 11:35 Urine,Catheterized Urine Culture - Preliminary Narrative: Alert but not oriented to person place or time Heart rate regular. No murmurs. Abdomen soft. Perfusion is good with warm extremities. Lungs have fair air movement with minimal rhonchi at bases, faint crackle posterior lung field best heard at bases No rash. Oropharynx clear. Assessment and Plan (1) Septic shock Status: Acute Category: Medical Code(s): A41.9 - Sepsis, unspecified organism; R65.21 - Severe sepsis with septic shock (2) Acute hypoxemic respiratory failure due to COVID-19 Status: Acute Category: Medical Code(s): U07.1 - COVID-19; J96.01 - Acute respiratory failure with hypoxia (3) Anemia Status: Chronic Qualifiers: Anemia type: other cause Category: Medical Code(s): D64.9 - Anemia, unspecified (4) Hypocalcemia Status: Acute Category: Medical Code(s): E83.51 - Hypocalcemia (5) UTI (urinary tract infection) Status: Acute Qualifiers: Urinary tract infection type: site unspecified Hematuria presence: without hematuria Qualified Code(s): N39.0 - Urinary tract infection, site not specified Category: Medical Code(s): N39.0 - Urinary tract infection, site not specified (6) Dementia Status: Chronic Qualifiers: Dementia type: Alzheimer's disease Alzheimer's disease onset: late-onset Dementia behavioral disturbance: with behavioral disturbance Category: Medical Code(s): F03.90 - Unspecified dementia without behavioral disturbance (7) Hypoalbuminemia due to protein-calorie malnutrition Status: Acute Category: Medical Code(s): E88.09 - Other disorders of plasma-protein metabolism, not elsewhere classified; E46 - Unspecified protein-calorie malnutrition (8) NSTEMI (non-ST elevated myocardial infarction) Status: Acute Category: Medic
[2020-07-18 06:53] LABS: MANUAL DIFFERENTIAL MANUAL DIFFERENTIAL (MANUAL DIFF)
--- NOTE | 2020-07-18 08:52 | PC.NURSE ---
rounded with patient. Advised to give 1L LR over 4 hours if patients systolic blood pressure drops below 85. After bolus return to normal fluid orders. Also advised that patient can come out of covid isolation as patient was diagnosed with covid in May. Called Karthik with [facility] and advised her and she states she will look into it.
--- NOTE | 2020-07-18 09:49 | PC.NURSE ---
Patient was noted to have wet cough for several minutes following getting am meds. Meds were given in applesauce, however, gave patient water to wash down applesauce. Patient was given a sip of water during rounds and patient began coughing once again. Call made to . Spoke with his nurse to see if we can order a swallow study or switch him to nectar thick fluids. Patient will be transferred to room 207 per Karthik.
[2020-07-18 09:51] LABS: Eosinophils % 1 % (0-3); Lymphocytes % 11 % (10-50); Monocytes % 3 % (2-9); Neutrophils % 85 % (42-76); Total Cells Counted 100
[2020-07-18 09:54] LABS: Hypochromasia 3+; Platelet Estimate Normal
--- NOTE | 2020-07-18 10:27 | HMH.PHACONS ---
- Pharmacy Consult Date: 07/18/20 Time: 10:27 Referring provider: LAURO Reason for Consult:: VANCOMYCIN THERAPY Allergies and ADEs:: Allergies Allergy/AdvReac Type Severity Reaction Status Date / Time Sulfa (Sulfonamide Allergy Unknown Verified 07/08/20 04:34 Antibiotics) [SULFA (SULFONAMIDE ANTIBIOTICS)] Home Medications:: Home Medications Medication Instructions Recorded Confirmed Type Atorvastatin Calcium [Lipitor 80mg 80 mg PO HS 03/03/18 07/15/20 History Tab] Ferrous Sulfate 325 mg PO BID 03/03/18 07/15/20 History Finasteride [Proscar 5mg Tablet] 5 mg PO DAILY 03/03/18 07/15/20 History Escitalopram Oxalate [Lexapro] 20 mg PO DAILY 08/05/18 07/15/20 History Saccharomyces Boulardii [Probiotic] 250 mg PO DAILY 08/05/18 07/15/20 History Calcium Carbonate/Vitamin D3 1 each PO DAILY 11/06/18 07/15/20 History [Oyster Shell-D 250 mg Tablet] Donepezil HCl [Aricept 10mg 10 mg PO HS 11/06/18 07/15/20 History tablet] Fluticasone/Vilanterol [Breo 1 puff IH HS 11/06/18 07/15/20 History Ellipta 100-25 Mcg INH] Mirtazapine 7.5 mg PO HS 11/06/18 07/15/20 History Acetaminophen [Acetaminophen 325mg 1,000 mg PO BID 11/17/18 07/15/20 History tab] Cholecalciferol (Vitamin D3) 4,000 unit PO DAILY 07/08/20 07/15/20 History [Vitamin D3] Memantine HCl [Namenda 10mg 10 mg PO BID 07/08/20 07/15/20 History Tablet] Nitroglycerin [Nitrostat 0.4mg SL 0.4 mg SL Q5MINP PRN 07/08/20 07/15/20 History Tablet] Pantoprazole Sodium [Protonix 40mg 40 mg PO BID 07/08/20 07/15/20 History tablet] Potassium Chloride [Klor-Con M10] 20 meq PO DAILY 07/08/20 07/15/20 History Quetiapine Fumarate [Seroquel 25mg 25 mg PO BID 07/08/20 07/15/20 History tablet] Sucralfate [Carafate 1gm Tab] 1 gm PO ACHS 07/08/20 07/15/20 History lisinopriL [Lisinopril 5mg 5 mg PO DAILY 07/08/20 07/15/20 History Tablet] levoFLOXacin [Levaquin 750mg 750 mg PO DAILY 07/15/20 07/15/20 History tablet] Height: 1.75 m Weight: 85.185 kg Laboratory Results:: Laboratory Results - last 24 hr 07/17/20 09:25: WBC 5.0, RBC 2.81 L, Hgb 8.5 L, Hct 27.4 L, MCV 97.6 H, MCH 30.3, MCHC 31.1 L, RDW 16.1, Plt Count 184, MPV 8.8, Neut % (Auto) 77.3, Lymph % (Auto) 15.8, [place] % (Auto) 5.3, Eos % (Auto) 1.3, Baso % (Auto) 0.4, Neut # (Auto) 3.9, Lymph # (Auto) 0.8, [place] # (Auto) 0.3, Eos # (Auto) 0.1, Baso # (Auto) 0.0 07/17/20 09:25: Potassium 2.7 L*, Carbon Dioxide 23, Anion Gap Not Reportable, BUN 15, Creatinine 0.80, Estimated Creat Clear 64, Estimated GFR 93, Est GFR ( Amer) 112, Glucose 103 H, Calcium 7.4 L 07/17/20 20:18: Vancomycin Trough 13.0 H 07/18/20 05:30: WBC 9.2 D, RBC 2.93 L, Hgb 8.8 L, Hct 27.6 L, MCV 94.4 H, MCH 30.1, MCHC 31.9, RDW 16.0, Plt Count 212, MPV 9.1, Neut % (Auto) 86.1 H, Lymph % (Auto) 8.4 L, [place] % (Auto) 5.1, Eos % (Auto) 0.2, Baso % (Auto) 0.2, Neut # (Auto) 7.9 H, Lymph # (Auto) 0.8, [place] # (Auto) 0.5, Eos # (Auto) 0.0, Baso # (Auto) 0.0, Total Counted 100, Neutrophils % (Manual) 85 H, Lymphocytes % (Manual) 11, Monocytes % (Manual) 3, Eosinophils % (Manual) 1, Platelet Estimate Normal, Hypochromasia 3+ 07/18/20 05:30: Sodium 145, Potassium 3.2 L, Chloride 118 H, Carbon Dioxide 23, Anion Gap 7.2, BUN 13, Creatinine 0.70, Estimated Creat Clear 69, Estimated GFR 108, Est GFR ( Amer) 131, Glucose 105 H, Calcium 7.6 L Medical History: Reports:: Aneurysm, Atherosclerotic Heart Disease, BPH, Congestive Heart Failure, Chronic Obstructive Pulmonary Disease (COPD), Coronary Artery Disease, Dementia, Hyperlipidemia, Hypertension, Kidney Stones, Myocardial Infarction, Peripheral Vascular Disease Denies:: Cancer, Diabetes Mellitus Type 1, Diabetes Mellitus Type 2, Internal Pacemaker, MRSA Assessment and Plan (1) Septic shock Status: Acute Category: Medical Code(s): A41.9 - Sepsis, unspecified organism; R65.21 - Severe sepsis with septic shock (2) Acute hypoxemic respirat
--- NOTE | 2020-07-18 11:41 | HMH.SLDYSPHA ---
Speech & Language Evaluation Speech/Language Dysphagia Evaluation Start: 07/18/20 11:23 Freq: ONCE Status: Active Protocol: Document 07/18/20 11:26 ASTRID (Rec: 07/18/20 11:41 ASTRID [id number]) Dysphagia Assess/Goals/Plan Assessment Date of Evaluation: 07/18/20 Evaluation Type Initial Certification Assessment/Problems Dysphagia Does Patient Qualify for Service No Qualify/Failure Comment Diet modificiations made, recommended crush medications and assist with all meals. Recommendations PHYSICIAN CERTIFICATION: The specified therapy services are required, authorized, and reviewed every 30 days. Diet Recommendations Mechanical Soft Liquid Type Recommendations Normal/Thin SL Swallow Guidelines Assist w/all meals,Standard Aspiration Prec.,Crush meds as allowed* Dysphagia Swallow Precautions/Strategies Sitting Upright (90 deg), Liquids from Straw,Small Bites and Sips,Alternate Liquids/ Solids Plan Pt/Guardian verbally ack understanding Yes: RN, CM, and Dr notified of dx/prognosis/goals G -code Required No Speech & Language HPI Language Primary Language Croatian General Information General Current Food Consistancy Regular,Thin Liquids Dentition Poor Dentition Oxygen Status Nasal Cannula Facial Symmetry Symmetrical Ability to Follow Directions Fair Communication Ability Mild Impairment Dysphagia:Food Presentation Evaluation Food Type Mechanical Soft,Regular,Liquid ,Pudding Normal/Thin Liquid Response Clears throat Dysphagia Evaluation Summary Mr. Granger was given the following consistencies: thins via straw, pudding, mechanical soft, regular, and pill whole in pudding and thin wash, pill crushed in pudding with thin wash. It took Mr. Granger extra time to begin drinking intially. Once he started, he exhibited minimal throat clearing. Pudding and mechanical soft both showed no signs of dysphagia however when he was given a thin wash after each consistency, he exhibited throat clearing. When given regular consistency
--- NOTE | 2020-07-18 17:49 | DIET.NUTRFU ---
PO intakes 25% + TID supplements, weight up 5# t/o stay. Speech saw him and gave soft mechanical diet with thin liquids. Pt requires full assistance feeding, continued cueing/encouragement to eat as appropriate appreciated. Please observe aspiration precautions. Continuing to monitor.
--- NOTE | 2020-07-18 18:35 | PC.NURSE ---
Addendum entered by Rachel Moreno RN 07/18/20 18:45: MISHRA CATHETER IN PLACE. NO KINKS NOTED. DARK YELLOW URINE NOTED. Original Note: A TO NAME ONLY. PT HAS TOERLATED 2L NC WELL THROUGHOUT SHIFT. RESPIRATIONS REGULAR AND UNLABORED. LUNG SOUNDS DIMINISHED THROUGHOUT. +2 PULSES NOTED THROUGHOUT. NO EDEMA NOTED. PT HAS REMAINED ON TELE THROUGHOUT. PT HAS TOLERATED MECHANICAL SOFT DIET W DRINKS W A STRAW. PT HAS BEEN ASSISTED AT MEAL TIMES BUT HASN'T ATE MUCH. NS INFUSING AT 100ML/HR. PT HAS RECEIVED SEVERAL ANTIBIOTICS AND TOLERATED ALL WELL. PT HAS BEEN TURNED Q 2 HOURS TO PREVENT FURTHER SKIN BREAKDOWN. BED ALARM ON TO PROMOTE SAFETY. ACTIVE BOWEL SOUNDS HEARD IN ALL 4 QUADRANTS. SOFT AND NONTENDER ABDOMEN. NO BM WHILE UNDER THIS NURSE'S CARE. CALL LIGHT WITHIN REACH. BED IN LOWEST POSITION. VSS. PT HAS REMAINED AFEBRILE. WILL CONTINUE TO MONITOR.
[2020-07-19] VITALS (23 sets, daily range): BP systolic 87–126; BP diastolic 48–76; PULSE 82–100; RESP 18–30; TEMP 36.2–37.1; O2SAT 92–98
[2020-07-19 07:05] LABS: Basophils % 0.3 % (0.1-2.0); Eosinophils % 0.4 % (0.1-12.0); Hematocrit 27.4 % (42.0-52.0); Hemoglobin 8.6 g/dL (14.1-18.0); Lymphocytes # 1.1 K/mm3 (0.7-4.5); Lymphocytes % 11.9 % (10-50); Mean Corpuscular HGB Conc 31.3 g/dL (31.8-35.4); Mean Corpuscular Volume 95.8 fl (80-94); Mean Platelet Volume 8.6 fl (7.4-10.4); Monocytes # 0.4 K/mm3 (0.1-1.0); Monocytes % 4.1 % (1.7-9.3); Neutrophils # 7.9 K/mm3 (1.8-7.8); Neutrophils % 83.3 % (37.0-80.0); Platelet Count 242 K/mm3 (142-424); Red Blood Count 2.86 M/mm3 (4.60-6.20); White Blood Count 9.5 K/mm3 (4.8-10.8)
--- NOTE | 2020-07-19 07:19 | HMH.ACPN2 ---
Internal Medicine - PN: Subj *Date: 07/19/20 *Time: 08:00 Interval history: Patient remained stable. Stable oxygen requirement. Blood pressure improved without necessity for fluid boluses. Reviewed labs from this morning, will transfuse 1 more unit of blood today. No nausea or vomiting. Weak voice on interview the patient answered questions appropriately. Nurse reports patient is more wheezy today. Exam Vital signs and Labs for Last 24 Hours: Temp Pulse Resp BP Pulse Ox 97.8 F 91 H 24 106/48 L 95 07/19/20 04:00 07/19/20 04:00 07/19/20 04:00 07/19/20 04:00 07/19/20 06:24 Laboratory Results - last 24 hr 07/15/20 14:40: Crossmatch (G) See Detail 07/18/20 05:30: Total Counted 100, Neutrophils % (Manual) 85 H, Lymphocytes % (Manual) 11, Monocytes % (Manual) 3, Eosinophils % (Manual) 1, Platelet Estimate Normal, Hypochromasia 3+ 07/19/20 06:30: WBC 9.5, RBC 2.86 L, Hgb 8.6 L, Hct 27.4 L, MCV 95.8 H, MCH 30.0, MCHC 31.3 L, RDW 16.0, Plt Count 242, MPV 8.6, Neut % (Auto) 83.3 H, Lymph % (Auto) 11.9, [place] % (Auto) 4.1, Eos % (Auto) 0.4, Baso % (Auto) 0.3, Neut # (Auto) 7.9 H, Lymph # (Auto) 1.1, [place] # (Auto) 0.4, Eos # (Auto) 0.0, Baso # (Auto) 0.0 I & O for Last 24 hours: Intake & Output 07/16/20 07/17/20 07/18/20 07/19/20 23:59 23:59 23:59 23:59 Intake Total 3953 / 4193 5603 / 5603 2173 / 2173 Output Total 1075 / 1075 211 / 211 475 / 475 Balance 2878 / 3118 5392 / 5392 1698 / 1698 Weight 85.185 kg Microbiology Reports for the Last 24 Hours: Microbiology 07/15/20 11:35 Urine,Catheterized Urine Culture - Preliminary Narrative: Alert, oriented to person only, not to place or time Heart rate regular. No murmurs. Abdomen soft. Perfusion is good with warm extremities. Lungs have fair air movement with minimal rhonchi at bases, faint crackle posterior lung field best heard at bases No rash. Oropharynx clear. Assessment and Plan (1) Septic shock Status: Acute Category: Medical Code(s): A41.9 - Sepsis, unspecified organism; R65.21 - Severe sepsis with septic shock (2) Acute hypoxemic respiratory failure due to COVID-19 Status: Acute Category: Medical Code(s): U07.1 - COVID-19; J96.01 - Acute respiratory failure with hypoxia (3) Anemia Status: Chronic Qualifiers: Anemia type: other cause Category: Medical Code(s): D64.9 - Anemia, unspecified (4) Hypocalcemia Status: Acute Category: Medical Code(s): E83.51 - Hypocalcemia (5) UTI (urinary tract infection) Status: Acute Qualifiers: Urinary tract infection type: site unspecified Hematuria presence: without hematuria Qualified Code(s): N39.0 - Urinary tract infection, site not specified Category: Medical Code(s): N39.0 - Urinary tract infection, site not specified (6) Dementia Status: Chronic Qualifiers: Dementia type: Alzheimer's disease Alzheimer's disease onset: late-onset Dementia behavioral disturbance: with behavioral disturbance Category: Medical Code(s): F03.90 - Unspecified dementia without behavioral disturbance (7) Hypoalbuminemia due to protein-calorie malnutrition Status: Acute Category: Medical Code(s): E88.09 - Other disorders of plasma-protein metabolism, not elsewhere classified; E46 - Unspecified protein-calorie malnutrition (8) NSTEMI (non-ST elevated myocardial infarction) Status: Acute Category: Medical Code(s): I21.4 - Non-ST elevation (NSTEMI) myocardial infarction - Assessment and plan all Dx Assessment and Plan for all problems:: 80-year-old male with Severe sepsis from post Covid pneumonia-continue fluid support. Blood pressure doing better. No further need for Levophed now for 48 hours. Fluid boluses in the past 24 hours. Family aware of critical nature of the his condition, continue to avoid artificial life support and would avoid CPR --continue current antibiotic therapy. -Goal systolic blood pressu
[2020-07-19 07:22] LABS: Blood Urea Nitrogen 14 mg/dl (9-20); Calcium 7.7 mg/dl (8.4-10.2); Carbon Dioxide 22 mmol/L (22.0-30.0); Chloride 117 mmol/L (98-107); Creatinine Clearance Estimated 69 mL/min (50-200); Estimated Glomerular Filt Rate 81 ml/min (>60); GFR (African American) 98 ML/MIN (>60); Glucose 101 mg/dl (74-100); Magnesium 1.6 mg/dl (1.6-2.3); Sodium 145 mmol/L (136-145)
--- NOTE | 2020-07-19 07:33 | PC.NURSE ---
Pt has been alert to self this shift. Lung sounds show coarse crackles t/o and audible wheezing when in room. Pt has been incontinent of stool x2 this shift.Pt was turned q2h by nursing staff along w/ oral care. Pt required suctioning x1 this shift. Black, and dark red mucus was suctioned. Pt took meds whole in applesauce. No other acute changes or complaints at this time.
--- NOTE | 2020-07-19 09:51 | PC.NURSE ---
RN requested treatment after tod her to take pt out of precautions.
--- NOTE | 2020-07-19 15:45 | ECG_ITS ---
APPROVED REPORT Exam: Resting ECG HR:107 bpm ECG Measurements Heart Rate 107 AXES NC 88 P 16 QRSd 16 QRS 149 QT 376 T 262 QTc 501 Conclusion Sinus rhythm with short NC with premature supraventricular complexes with occasional and consecutive premature ventricular complexes and fusion complexes Indeterminate axis Pulmonary disease pattern Possible Right ventricular hypertrophy ST & T wave abnormality, consider inferior ischemia Abnormal ECG Electronically signed by : Julio Connors, 07/21/2020 14:16:25
[2020-07-19 17:16] LABS: Troponin I 2.06 ng/ml (0.00-0.034)
[2020-07-19 19:23] LABS: Hemoglobin 8.9 g/dL (14.1-18.0)
[2020-07-19 19:26] LABS: Hematocrit 28.6 % (42.0-52.0)
--- NOTE | 2020-07-19 19:37 | PC.NURSE ---
PT IS RESTING IN BED. ALERT TO SELF ONLY. PT FOLLOWS SIMPLE COMMANDS AND ANSWERS QUESTIONS APPROPRIATELY. O2 SATURATION HAS MAINTAINED 93-96% T/O THE SHIFT. PT HAS AUDIBLE WHEEZES. LUNG SOUNDS HAVE SCATTERED WHEEZES AND CRACKLES. SCHEDULED DUONEBS ORDERED. RESPIRATIONS 24-28/MIN T/O THE SHIFT. PT TOLERATED BLOOD TRANSFUSION WELL. DURING REPOSITIONING THIS SHIFT PT STATED HE WAS HAVING PROBLEMS BREATHING AND HAD A PAIN IN THE LEFT SIDE OF HIS CHEST. PCP NOTIFIED (EKG, TROPONIN AND NITRO 0.4 MG X1 ORDERED) PT'S CHEST PAIN IMPROVED WITH THE ONE TIME DOSE OF NITRO. PCP ALSO ORDERED A CXR. NEW IV ACCESS NOTED TO THE VÍCTOR AND RT WRIST. PT HAS HAD 2 LOOSE BOWEL MOVEMENTS THIS SHIFT. REDNESS NOTED TO THE BUTTOCKS. PT HAS NOT BEEN EATING WELL BUT HAS BEEN DRINKING VANILLA ENSURE. WILL CONTINUE TO MONITOR.
--- NOTE | 2020-07-19 19:47 | XR_ITS ---
PROCEDURE: XR CHEST PORTABLE CLINICAL HISTORY: SOA COMPARISON: CT CHW CT CHEST W/ CONTRAST from 06/08/2016 CR XR CHEST PORTABLE from 07/08/2020 CR XR CHEST PORTABLE from 07/10/2020 CR XR CHEST PORTABLE from 07/15/2020 FINDINGS: Cardiomegaly with mild pulmonary venous congestion. There is consolidation in both lower lobes consistent bilateral lower lobe pneumonia with bilateral effusions. Degenerative changes of the shoulders right greater left. Old right humeral neck fracture suspected IMPRESSION: CHF with worsening bilateral lower lobe pneumonia and effusions. Dictated by: Jimbo Sparks MD 07/20/2020 07:19 Jimbo Sparks MD in [facility] 07/20/2020 07:19
[2020-07-20] VITALS (8 sets, daily range): BP systolic 98–125; BP diastolic 53–85; PULSE 75–106; RESP 16–28; TEMP 36.6–36.8; O2SAT 88–95; BMI 28.4
--- NOTE | 2020-07-20 04:57 | PC.NURSE ---
Pt has been alert to self only this shift. Scattered rhonchi and wheezing heard t/o all lung leal. Dry, nonproductive cough noted. . RR between 20-30 t/o this shift. Pt continues to require 4 L NC w/ o2 sats between 92-94%. Pt has been a q2h turn and q2h oral care this shift. No other acute changes or complaints at this time.
[2020-07-20 07:49] LABS: Anion Gap 9.4 mEq/L (5-15); Blood Urea Nitrogen 17 mg/dl (9-20); Carbon Dioxide 20 mmol/L (22.0-30.0); Chloride 119 mmol/L (98-107); Creatinine Clearance Estimated 64 mL/min (50-200); Estimated Glomerular Filt Rate 64 ml/min (>60); GFR (African American) 78 ML/MIN (>60); Glucose 98 mg/dl (74-100); Magnesium 1.7 mg/dl (1.6-2.3); Potassium 3.4 mmoL/L (3.5-5.1); Sodium 145 mmol/L (136-145)
[2020-07-20 08:26] LABS: Basophils % 0.2 % (0.1-2.0); Eosinophils # 0.1 K/mm3 (0.0-0.4); Eosinophils % 0.6 % (0.1-12.0); Hematocrit 32.1 % (42.0-52.0); Lymphocytes # 1.3 K/mm3 (0.7-4.5); Lymphocytes % 10.5 % (10-50); Mean Corpuscular HGB Conc 30.7 g/dL (31.8-35.4); Mean Corpuscular Hemoglobin 28.9 pg (27.0-31.2); Mean Corpuscular Volume 94.2 fl (80-94); Mean Platelet Volume 8.8 fl (7.4-10.4); Monocytes # 0.4 K/mm3 (0.1-1.0); Monocytes % 3.2 % (1.7-9.3); Neutrophils # 10.5 K/mm3 (1.8-7.8); Neutrophils % 85.5 % (37.0-80.0); Platelet Count 297 K/mm3 (142-424); Red Blood Count 3.41 M/mm3 (4.60-6.20); White Blood Count 12.2 K/mm3 (4.8-10.8)
[2020-07-20 08:32] LABS: Hemoglobin 9.9 g/dL (14.1-18.0); MANUAL DIFFERENTIAL MANUAL DIFFERENTIAL (MANUAL DIFF)
[2020-07-20 09:18] LABS: Eosinophils % 2 % (0-3); Lymphocytes % 10 % (10-50); Monocytes % 3 % (2-9); Neutrophils % 85 % (42-76); Platelet Estimate Normal; RBC Morphology Normal; Total Cells Counted 100
--- NOTE | 2020-07-20 10:34 | HMH.ACPN2 ---
Internal Medicine - PN: Subj *Date: 07/20/20 *Time: 11:06 Interval history: Francis looks intervally worse this morning. Will open eyes to verbal commands, answers with very weak voice. Unable to cough. Very junky on respiratory exam today. Chest x-ray reviewed from last night shows worsening bilateral basilar infiltrates with effusions. Oxygen requirement stable, blood pressure stable. Remains afebrile. Drinking well with assistance, minimal p.o. intake. Tolerating p.o. meds. Exam Vital signs and Labs for Last 24 Hours: Temp Pulse Resp BP Pulse Ox 98.1 F 106 H 25 H 125/69 93 L 07/20/20 08:00 07/20/20 08:00 07/20/20 08:00 07/20/20 08:00 07/20/20 08:00 Laboratory Results - last 24 hr 07/15/20 11:35: Urine Color Yellow, Urine Appearance Clear, Urine pH 6.0, Ur Specific [place] 1.015, Urine Protein Trace, Urine Glucose (UA) Negative, Urine Ketones Negative, Urine Blood Trace-l, Urine Nitrate Negative, Urine Bilirubin Negative, Urine Urobilinogen 0.2, Ur Leukocyte Esterase 2+ A, Urine RBC Occasional, Urine WBC 20-50, Ur Squamous Epith Cells None, Urine Bacteria 1+ 07/15/20 14:40: Crossmatch ([facility]) See Detail 07/19/20 10:55: Blood Type O Positive, Antibody Screen Negative, Crossmatch ([facility]) See Detail 07/19/20 16:40: Troponin I 2.06 H 07/19/20 19:00: Hgb 8.9 L, Hct 28.6 L 07/20/20 03:13: WBC 12.2 H D, RBC 3.41 L, Hgb 9.9 L D, Hct 32.1 L, MCV 94.2 H, MCH 28.9, MCHC 30.7 L, RDW 16.0, Plt Count 297, MPV 8.8, Neut % (Auto) 85.5 H, Lymph % (Auto) 10.5, [place] % (Auto) 3.2, Eos % (Auto) 0.6, Baso % (Auto) 0.2, Neut # (Auto) 10.5 H, Lymph # (Auto) 1.3, [place] # (Auto) 0.4, Eos # (Auto) 0.1, Baso # (Auto) 0.0, Total Counted 100, Neutrophils % (Manual) 85 H, Lymphocytes % (Manual) 10, Monocytes % (Manual) 3, Eosinophils % (Manual) 2, Platelet Estimate Normal, RBC Morphology Normal 07/20/20 06:38: Sodium 145, Potassium 3.4 L, Chloride 119 H, Carbon Dioxide 20 L, Anion Gap 9.4, BUN 17, Creatinine 1.10 D, Estimated Creat Clear 64, Estimated GFR 64, Est GFR ( Amer) 78 D, Glucose 98, Calcium 8.0 L, Magnesium 1.7 I & O for Last 24 hours: Intake & Output 07/17/20 07/18/20 07/19/20 07/20/20 23:59 23:59 23:59 23:59 Intake Total 5603 / 5603 2173 / 2173 590 / 590 200 / 200 Output Total 211 / 211 475 / 475 901 / 901 376 / 376 Balance 5392 / 5392 1698 / 1698 -311 / -311 -176 / -176 Weight 85.185 kg 87.175 kg Microbiology Reports for the Last 24 Hours: Microbiology 07/15/20 11:35 Urine,Catheterized Urine Culture - Preliminary - Constitutional mild distress, average body habitus, somnolent - *Routine HEENT Exam Head: Present: normocephalic Eye: Present: EOMI, PERRL ENT: Present: mucous membranes moist Comments: loss of periorbital fat, bitemporal wasting. - *Routine Neck Exam Present: supple. Absent: lymphadenopathy - *Routine Respiratory Exam Present: accessory muscle use, rhonchi, crackles (in bilateral bases), diminished air movement - *Routine Cardiovascular Exam Present: RRR - *Routine Abdominal Exam Present: soft, normoactive bowel sounds. Absent: tenderness - *Routine Extremities Exam Absent: cyanosis, clubbing, edema - *Routine Skin Exam Present: warm. Absent: rash - *Routine Neurological Exam Present: alert oriented to person only Assessment and Plan (1) Septic shock Status: Acute Category: Medical Code(s): A41.9 - Sepsis, unspecified organism; R65.21 - Severe sepsis with septic shock (2) Acute hypoxemic respiratory failure due to COVID-19 Status: Acute Category: Medical Code(s): U07.1 - COVID-19; J96.01 - Acute respiratory failure with hypoxia (3) Anemia Status: Chronic Qualifiers: Anemia type: other cause Category: Medical Code(s): D64.9 - Anemia, unspecified (4) Hypocalcemia Status: Acute Category: Medical Code(s): E83.51 - Hypocalcemia (5) UTI (urinary tract infection) Status: Acute Qualifiers: Urinary tract infection typ
--- NOTE | 2020-07-20 15:54 | HMH.ACPN ---
Internal Medicine - PN: Subj *Date: 07/20/20 *Time: 15:54 Exam Vital signs and Labs for Last 24 Hours: Temp Pulse Resp BP Pulse Ox 98.2 F 97 H 22 121/65 88 L 07/20/20 12:00 07/20/20 12:28 07/20/20 12:00 07/20/20 12:00 07/20/20 12:28 Laboratory Results - last 24 hr 07/15/20 11:35: Urine Color Yellow, Urine Appearance Clear, Urine pH 6.0, Ur Specific [place] 1.015, Urine Protein Trace, Urine Glucose (UA) Negative, Urine Ketones Negative, Urine Blood Trace-l, Urine Nitrate Negative, Urine Bilirubin Negative, Urine Urobilinogen 0.2, Ur Leukocyte Esterase 2+ A, Urine RBC Occasional, Urine WBC 20-50, Ur Squamous Epith Cells None, Urine Bacteria 1+ 07/19/20 10:55: Crossmatch ([facility]) See Detail 07/19/20 16:40: Troponin I 2.06 H 07/19/20 19:00: Hgb 8.9 L, Hct 28.6 L 07/20/20 03:13: WBC 12.2 H D, RBC 3.41 L, Hgb 9.9 L D, Hct 32.1 L, MCV 94.2 H, MCH 28.9, MCHC 30.7 L, RDW 16.0, Plt Count 297, MPV 8.8, Neut % (Auto) 85.5 H, Lymph % (Auto) 10.5, [place] % (Auto) 3.2, Eos % (Auto) 0.6, Baso % (Auto) 0.2, Neut # (Auto) 10.5 H, Lymph # (Auto) 1.3, [place] # (Auto) 0.4, Eos # (Auto) 0.1, Baso # (Auto) 0.0, Total Counted 100, Neutrophils % (Manual) 85 H, Lymphocytes % (Manual) 10, Monocytes % (Manual) 3, Eosinophils % (Manual) 2, Platelet Estimate Normal, RBC Morphology Normal 07/20/20 06:38: Sodium 145, Potassium 3.4 L, Chloride 119 H, Carbon Dioxide 20 L, Anion Gap 9.4, BUN 17, Creatinine 1.10 D, Estimated Creat Clear 64, Estimated GFR 64, Est GFR ( Amer) 78 D, Glucose 98, Calcium 8.0 L, Magnesium 1.7 I & O for Last 24 hours: Intake & Output 07/17/20 07/18/20 07/19/20 07/20/20 23:59 23:59 23:59 23:59 Intake Total 5603 / 5603 2173 / 2173 590 / 590 680 / 680 Output Total 211 / 211 475 / 475 901 / 901 1176 / 1176 Balance 5392 / 5392 1698 / 1698 -311 / -311 -496 / -496 Weight 85.185 kg 87.175 kg Microbiology Reports for the Last 24 Hours: Microbiology 07/15/20 11:26 Blood Blood Culture - Final NO GROWTH AFTER 5 DAYS 07/15/20 11:26 Blood Blood Culture - Final NO GROWTH AFTER 5 DAYS 07/15/20 11:35 Urine,Catheterized Urine Culture - Preliminary Assessment and Plan (1) Septic shock Status: Acute Category: Medical Code(s): A41.9 - Sepsis, unspecified organism; R65.21 - Severe sepsis with septic shock (2) Acute hypoxemic respiratory failure due to COVID-19 Status: Acute Category: Medical Code(s): U07.1 - COVID-19; J96.01 - Acute respiratory failure with hypoxia (3) Anemia Status: Chronic Qualifiers: Anemia type: other cause Category: Medical Code(s): D64.9 - Anemia, unspecified (4) Hypocalcemia Status: Acute Category: Medical Code(s): E83.51 - Hypocalcemia (5) UTI (urinary tract infection) Status: Acute Qualifiers: Urinary tract infection type: site unspecified Hematuria presence: without hematuria Qualified Code(s): N39.0 - Urinary tract infection, site not specified Category: Medical Code(s): N39.0 - Urinary tract infection, site not specified (6) Dementia Status: Chronic Qualifiers: Dementia type: Alzheimer's disease Alzheimer's disease onset: late-onset Dementia behavioral disturbance: with behavioral disturbance Category: Medical Code(s): F03.90 - Unspecified dementia without behavioral disturbance (7) Hypoalbuminemia due to protein-calorie malnutrition Status: Acute Category: Medical Code(s): E88.09 - Other disorders of plasma-protein metabolism, not elsewhere classified; E46 - Unspecified protein-calorie malnutrition (8) NSTEMI (non-ST elevated myocardial infarction) Status: Acute Category: Medical Code(s): I21.4 - Non-ST elevation (NSTEMI) myocardial infarction The patient's infection will respond to the chosen ABx?: Yes Is the patient receiving the right drug, dose, and route?: Yes Could a more targeted ABx be ordered?: No (POSSIBLY DC TOMORROW ON PO CLINDA A
--- NOTE | 2020-07-20 19:34 | PC.NURSE ---
Sherry is resting in bed. Neuro is alert to name and only. Pulm: on 4 l nc, rodolfo noted. Respiratory aware. Patient does not cough to clear secretions. Refuses to be suctioned. GI: patient refuses most meals, Will drink ensure drinks if encouraged and assisted. : benitez catheter present. Patient given lasix today but only responded with 350 of urine throughout the shift. Patients skin is slightly reddened. Patient is a q2 hour turn. Mepilex applied to sacrum for prophylaxis treatment of skin issues. Barrier cream applied. Will continue to monitor.
[2020-07-20 21:49] LABS: Vancomycin,Trough 22.9 ug/mL (5.0-10.0)
[2020-07-21] VITALS: BP 90/55; PULSE 91; RESP 20; TEMP 36.8; O2SAT 90
[2020-07-21 04:00] VITALS: BP 103/60; PULSE 83; RESP 16; TEMP 36.6; O2SAT 88
--- NOTE | 2020-07-21 05:22 | PC.NURSE ---
pt is alert to person only, remains on 4L NC with O2 sats 88-90%, inspiratory and expiratory rhonchi noted on auscultation, breathing spontaneous and non-labored, systolic pressure 90-103, HR 83-91, benitez patent draining clear yellow urine
[2020-07-21 05:39] VITALS: BMI 29.2
[2020-07-21 07:09] LABS: Anion Gap 6.7 mEq/L (5-15); Blood Urea Nitrogen 22 mg/dl (9-20); Calcium 8.2 mg/dl (8.4-10.2); Carbon Dioxide 25 mmol/L (22.0-30.0); Chloride 117 mmol/L (98-107); Creatinine Clearance Estimated 51 mL/min (50-200); Estimated Glomerular Filt Rate 49 ml/min (>60); GFR (African American) 59 ML/MIN (>60); Glucose 94 mg/dl (74-100); Potassium 3.7 mmoL/L (3.5-5.1); Sodium 145 mmol/L (136-145)
[2020-07-21 07:20] LABS: Basophils % 0.5 % (0.1-2.0); Eosinophils # 0.1 K/mm3 (0.0-0.4); Eosinophils % 1.4 % (0.1-12.0); Lymphocytes # 1.2 K/mm3 (0.7-4.5); Lymphocytes % 15.9 % (10-50); Mean Corpuscular HGB Conc 31.1 g/dL (31.8-35.4); Mean Corpuscular Hemoglobin 29.7 pg (27.0-31.2); Mean Corpuscular Volume 95.6 fl (80-94); Mean Platelet Volume 8.8 fl (7.4-10.4); Monocytes # 0.4 K/mm3 (0.1-1.0); Monocytes % 4.7 % (1.7-9.3); Neutrophils # 5.9 K/mm3 (1.8-7.8); Neutrophils % 77.4 % (37.0-80.0); Platelet Count 274 K/mm3 (142-424); Red Blood Count 3.03 M/mm3 (4.60-6.20); Red Cell Distribution Width 15.9 % (11.5-17.5); White Blood Count 7.6 K/mm3 (4.8-10.8)
[2020-07-21 08:00] VITALS: BP 104/36; PULSE 83; RESP 20; TEMP 36.4; O2SAT 92
--- NOTE | 2020-07-21 08:27 | HMH.DCSUM ---
General - General Admission date:: 07/15/20 Discharge date: 07/21/20 HPI HPI: Mr. Gabriel is an 80-year-old gentleman well-known to our office as we care for him at his [facility] who presented with acute respiratory failure, septic shock, and NSTEMI to the ER this afternoon. Of note he was recently discharged from the hospital less than 2 days ago when he presented with similar presentation though troponin was not as elevated, hypotension not as severe. He was diagnosed earlier in May with COVID-19 and managed well in the [facility] setting. Developed worsening hypoxia, hypotension, and confusion last week leading to admission. Started on Abx with improvement inmentation, blood pressure and stable O2 requirement. On arrival today he was found to be tachycardic, tachypneic, hypotensive, hypoxic, and severely ill. blood pressure not responsive to fluids and necessitated Levophed gtt initiation in ER, Lactate >6, troponin >5, and obtunded. Sepsis protocol initiated with 30cc/kg bolus. Admitted to ICU for further management Hgb 7.3, initiated transfusion upon transfer to the unit. Hospital Course Hospital Course: Patient was admitted to intensive care unit, initially placed on Levophed drip but had some SVT with this and this was able to be weaned off with blood pressures in the mid 80s. Discussion with family about goals of care was held, family wished aggressive antibiotic and fluid therapy but no CPR or respiratory support. Patient did improve over the next couple of days and was able to be transferred to a floor bed. Unfortunately, continue to have signs and stigmata of aspiration. Speech therapy evaluated him, recommended diet as noted. Discussed again with the family ongoing aspiration issues and probable recurrent pneumonia episodes. Decision was made to treat with levofloxacin and clindamycin p.o., and patient has tolerated that yesterday and today, plan will be to transfer back to his [facility], and once these antibiotics are done initiate hospice consultation for his multiple comorbidities and recurrent aspiration. The family has indicated their wish for him not to be transferred back to the hospital if he develops another fever, pneumonia or respiratory distress. We will respect those wishes. Objective Vital signs: Temp Pulse Resp BP Pulse Ox 97.9 F 83 16 103/60 L 88 L 07/21/20 04:00 07/21/20 04:00 07/21/20 04:00 07/21/20 04:00 07/21/20 04:00 mild distress, thin, chronically ill appearing - *Routine HEENT Exam Head: Present: normocephalic Eye: Present: EOMI, PERRL - *Routine Neck Exam Present: supple - *Routine Respiratory Exam Present: rhonchi, distant breath sounds - *Routine Cardiovascular Exam Present: RRR, murmur - *Routine Abdominal Exam Present: soft, normoactive bowel sounds. Absent: tenderness - *Routine Extremities Exam Absent: cyanosis, clubbing, edema - *Routine Skin Exam Present: dry, warm. Absent: rash - *Routine Neurological Exam Present: alert. Absent: hearing grossly intact Globally very weak, dementia noted - Detailed Eye Exam Eyelids: Bilateral normal inspection Results Labs on day of discharge: Labs from last 24 hours 07/21/20 07/21/20 07/20/20 06:08 06:08 21:10 WBC 7.6 D RBC 3.03 L Hgb 9.0 L Hct 29.0 L MCV 95.6 H MCH 29.7 MCHC 31.1 L RDW 15.9 Plt Count 274 MPV 8.8 Neut % (Auto) 77.4 Lymph % (Auto) 15.9 [place] % (Auto) 4.7 Eos % (Auto) 1.4 Baso % (Auto) 0.5 Neut # (Auto) 5.9 Lymph # (Auto) 1.2 [place] # (Auto) 0.4 Eos # (Auto) 0.1 Baso # (Auto) 0.0 Total Counted Neutrophils % (Manual) Lymphocytes % (Manual) Monocytes % (Manual) Eosinophils % (Manual) Platelet Estimate RBC Morphology Sodium 145 Potassium 3.7 Chloride 117 H Carbon Dioxide 25 D Anion Gap 6.7 BUN 22 H D C
--- NOTE | 2020-07-21 08:56 | HMH.PHACONS ---
- Pharmacy Consult Date: 07/21/20 Time: 08:56 Referring provider: DR. HANSEN Reason for Consult:: VANCOMYCIN TROUGH LEVEL Allergies and ADEs:: Allergies Allergy/AdvReac Type Severity Reaction Status Date / Time Sulfa (Sulfonamide Allergy Unknown Verified 07/08/20 04:34 Antibiotics) [SULFA (SULFONAMIDE ANTIBIOTICS)] Home Medications:: Home Medications Medication Instructions Recorded Confirmed Type Atorvastatin Calcium [Lipitor 80mg 80 mg PO HS 03/03/18 07/15/20 History Tab] Ferrous Sulfate 325 mg PO BID 03/03/18 07/15/20 History Escitalopram Oxalate [Lexapro] 20 mg PO DAILY 08/05/18 07/15/20 History Saccharomyces Boulardii [Probiotic] 250 mg PO DAILY 08/05/18 07/15/20 History Calcium Carbonate/Vitamin D3 1 each PO DAILY 11/06/18 07/15/20 History [Oyster Shell-D 250 mg Tablet] Donepezil HCl [Aricept 10mg 10 mg PO HS 11/06/18 07/15/20 History tablet] Fluticasone/Vilanterol [Breo 1 puff IH HS 11/06/18 07/15/20 History Ellipta 100-25 Mcg INH] Mirtazapine 7.5 mg PO HS 11/06/18 07/15/20 History Acetaminophen [Acetaminophen 325mg 1,000 mg PO BID 11/17/18 07/15/20 History tab] Cholecalciferol (Vitamin D3) 4,000 unit PO DAILY 07/08/20 07/15/20 History [Vitamin D3] Memantine HCl [Namenda 10mg 10 mg PO BID 07/08/20 07/15/20 History Tablet] Nitroglycerin [Nitrostat 0.4mg SL 0.4 mg SL Q5MINP PRN 07/08/20 07/15/20 History Tablet] Pantoprazole Sodium [Protonix 40mg 40 mg PO BID 07/08/20 07/15/20 History tablet] Potassium Chloride [Klor-Con M10] 20 meq PO DAILY 07/08/20 07/15/20 History Quetiapine Fumarate [Seroquel 25mg 25 mg PO BID 07/08/20 07/15/20 History tablet] Sucralfate [Carafate 1gm Tab] 1 gm PO ACHS 07/08/20 07/15/20 History lisinopriL [Lisinopril 5mg 5 mg PO DAILY 07/08/20 07/15/20 History Tablet] clindamycin HCL [Clindamycin HCl] 300 mg PO TID #21 cap 07/21/20 Rx levoFLOXacin [Levaquin 750mg 750 mg PO DAILY #7 tab 07/21/20 Rx tablet] Height: 1.75 m Weight: 89.414 kg Laboratory Results:: Laboratory Results - last 24 hr 07/20/20 03:13: Total Counted 100, Neutrophils % (Manual) 85 H, Lymphocytes % (Manual) 10, Monocytes % (Manual) 3, Eosinophils % (Manual) 2, Platelet Estimate Normal, RBC Morphology Normal 07/20/20 21:10: Vancomycin Trough 22.9 H 07/21/20 06:08: WBC 7.6 D, RBC 3.03 L, Hgb 9.0 L, Hct 29.0 L, MCV 95.6 H, MCH 29.7, MCHC 31.1 L, RDW 15.9, Plt Count 274, MPV 8.8, Neut % (Auto) 77.4, Lymph % (Auto) 15.9, [place] % (Auto) 4.7, Eos % (Auto) 1.4, Baso % (Auto) 0.5, Neut # (Auto) 5.9, Lymph # (Auto) 1.2, [place] # (Auto) 0.4, Eos # (Auto) 0.1, Baso # (Auto) 0.0 07/21/20 06:08: Sodium 145, Potassium 3.7, Chloride 117 H, Carbon Dioxide 25 D, Anion Gap 6.7, BUN 22 H D, Creatinine 1.40 H D, Estimated Creat Clear 51, Estimated GFR 49 L, Est GFR ( Amer) 59 D, Glucose 94, Calcium 8.2 L Medical History: Reports:: Aneurysm, Atherosclerotic Heart Disease, BPH, Congestive Heart Failure, Chronic Obstructive Pulmonary Disease (COPD), Coronary Artery Disease, Dementia, Hyperlipidemia, Hypertension, Kidney Stones, Myocardial Infarction, Peripheral Vascular Disease Denies:: Cancer, Diabetes Mellitus Type 1, Diabetes Mellitus Type 2, Internal Pacemaker, MRSA Assessment and Plan (1) Septic shock Status: Resolved Category: Medical Code(s): A41.9 - Sepsis, unspecified organism; R65.21 - Severe sepsis with septic shock (2) Acute hypoxemic respiratory failure due to COVID-19 Status: Resolved Category: Medical Code(s): U07.1 - COVID-19; J96.01 - Acute respiratory failure with hypoxia (3) Anemia Status: Chronic Qualifiers: Anemia type: other cause Category: Medical Code(s): D64.9 - Anemia, unspecified (4) Hypocalcemia Status: Resolved Category: Medical Code(s): E83.51 - Hypocalcemia (5) UTI (urinary tract infection) Status: Resolved Qualifiers: Urinary tract infection type: site unspecifi
--- NOTE | 2020-07-21 09:47 | SW/DCPLANNER ---
SENT A CONSULT TO [facility] IN [place] TO SEE PATIENT AT [facility] TO EVALUATE FOR HOSPICE SERVICES... PATIENT IS DISCHARGING BACK TO HIS [facility] BED TODAY AND FAMILY IS AWARE AND IN AGREEMENT OF THE PLAN...
[2020-07-21 11:55] VITALS: PULSE 82; PULSE 87; O2SAT 92
[2020-07-21 12:00] VITALS: BP 108/42; PULSE 78; RESP 18; TEMP 36.5; O2SAT 92
--- NOTE | 2020-07-21 18:13 | PC.NURSE ---
PATIENT ALERT TO NAME. LUNGS ARE DIMINISHED, PULSES EQUAL, SKIN COLOR PALE. PATIENT REFUSED TO TAKE PO MEDICATIONS THIS AM. IV WAS LEAKING, THIS RN PHONED DR. PERES TO REPORT NO IV ACCESS FOR ANTIBIOTIC ADMINISTRATION, PER [facility] TO D/C. THIS RN PROVIDED REPORT TO KE AT [facility]. THIS RN PHONED TO DR. PERES TO INFORM MD THAT IN DISCHARGE SUMMARY, IT STATES THAT PATIENT WAS TAKING PO ANTIBIOTICS. PATIENT HAD NOT TAKEN PO ANTIBIOTICS, MD STATED OKAY TO CROSS OUT AND WRITE IN IV ADMINISTRATION PER DR. PERES. NO OTHER CONCERNS AT THIS TIME.
== END 2020-07-21 16:15 | DRG 177 ==
LOC: ER 14:20 → ICU 15:30 → 2ND 07-18 11:47
PROVIDERS: Internal Medicine Adolescent Medicine; Admitting Provider Internal Medicine Adolescent Medicine; Emergency Provider Emergency Medicine; PCP Internal Medicine Adolescent Medicine; Visit Provider Internal Medicine Adolescent Medicine
DX: U07.1 COVID-19 (principal); R65.21 Severe sepsis with septic shock; J96.01 Acute respiratory failure with hypoxia; I21.4 Non-ST elevation (NSTEMI) myocardial infarction; J69.0 Pneumonitis due to inhalation of food and vomit; E46 Unspecified protein-calorie malnutrition; F05 Delirium due to known physiological condition; E88.09 Other disorders of plasma-protein metabolism, not elsewhere classified; I25.2 Old myocardial infarction; I11.0 Hypertensive heart disease with heart failure; I50.9 Heart failure, unspecified; J44.9 Chronic obstructive pulmonary disease, unspecified; I25.10 Atherosclerotic heart disease of native coronary artery without angina pectoris; Z87.891 Personal history of nicotine dependence; Z88.2 Allergy status to sulfonamides; Z79.899 Other long term (current) drug therapy; Z95.5 Presence of coronary angioplasty implant and graft; G30.1 Alzheimer's disease with late onset; F02.80 Dementia in other diseases classified elsewhere, unspecified severity, without behavioral disturbance, psychotic disturbance, mood disturbance, and anxiety; E83.51 Hypocalcemia
CPT/HCPCS: 36415; 71045; 80048; 80053; 80202; 81001; 82803; 83605; 83735; 83880; 84443; 84484; 85007; 85014; 85018; 85025; 85610; 85730; 86850; 87040; 87086; 87088; 92610; 93005; 94640; 94761; 96365; 96366; 96367; 99285; J1956; J2405; J2543; J3370; P9016